=== PATIENT | male | born 1955 | race Caucasian/White ===

== ENCOUNTER 2022-02-10 22:39 | Inpatient (IN) ==
[2022-02-10] MEDS ORDERED: SODIUM CHLORIDE 0.9% 1000ML 1,000 ML IV ONE (23:06)
--- NOTE | 2022-02-10 23:10 | Emergency Department Note ---
Impression & Plan Acute hyponatremia, Bipolar 1 disorder, Lisa, Electrolyte abnormality, Abnormal finding on CT scan, Acute psychosis ED Provider Note Name: KEVON BRO Age: 66 Sex: M Arrives Via: Ambulance Informant: Patient, EMS, Nursing ED Provider: Masoud Yi MD Chief Complaint: AMS Impression: As per impressions above Medical Decision Makin-year-old gentleman with a history of psychiatric disorder who has been at the [facility] for the last 3 days due to acute psychosis arrives for evaluation after a reported episode of altered mental status and vomiting. He arrives awake alert but significantly psychotic and delusional. He appears dehydrated but on initial arrival is adamantly refusing IV fluids in fact will not even allow labs or CT of his head until he was given a glass of water which she immediately drank. This fortunately did allow us to get labs and the CT of his head. CT of the head shows an area that is likely an aneurysm however it appears similar to 2019 CT. This will likely need further work-up but I do not feel is the cause of his altered mental status today. His laboratory work-up is remarkable for significant hyponatremia along with some mild other electrolyte abnormalities. I suspect his hyponatremia is really secondary to polydipsia as he continuously asked for water to drink and is somewhat upset that we are not giving him further he did get somewhat up set and agitated that he would have to be staying in the hospital. He is agreeable to medicine help calm down and as he was given Ativan 2 mg IV with improvement in his agitation. Patient was given 1 L normal saline IV. He exhibits no strokelike symptoms and there is no evidence of intracranial hemorrhage at this time. He was discussed with the on-call hospit alist who will bring him in for further management. Patient has no respiratory distress, he has a soft nontender abdomen and he does not appear septic or otherwise requiring antibiotics for infection. Prior Medical Record and Triage/Nursing Notes reviewed by Me Additional history obtained from EMS Differentials:Infection, hypoglycemia, electrolyte abnormalities, overdose, toxicologic, cardiac sources, intracerebral event, neurologic, trauma, as well as other pathologies. Vital Signs: reviewed and remarkable for HTN, improved during stay Interventions: Ativan 2mg IV, NSS Bolus 1L IV Labs:Reviewed and remarkable for hyponatremia Imaging:X ray results are stated below per my interpretation: Chest: 1 view: No infiltrate, no effusion, normal cardiac border. CT of the head as per radiology there is 10 mm area of possible aneurysm which appears somewhat similar to 2019 imaging after discussion with radiologist. Cardiac/Tele Monitoring: Cardiac Monitoring: An Order was placed for continuous cardiac monitoring. The monitor shows a rate of 80 with a normal sinus rhythm. Consults:Dr Hector PASTOR Hospitalist Plan: Disposition:Hospitalization. Condition: Good History of Present Illness:66-year-old gentleman arrives for evaluation of altered mental status. Patient has been at the [facility] for delusional state for the last week. Patient this evening was found unresponsive lying on the floor in his emesis. Blood pressure at that time revealed he was hypotensive. As he came too he apparently was having slurred speech. EMS was called. By the time EMS arrived patient was awake alert answering questions without any further findings. He remains delusional but this is his baseline for the last week. Patient has had high blood pressures for the weigh-in. Patient does admit he has a headache. He denies any other symptoms that he has no chest pain, shortness of breath, nausea, vomiting, abdominal pain, back pain, leg pain, calf swelling, urinary/bowel symptoms, sore throat, neurologic deficits or other concerning signs or symptoms. He had no interventions prior to arrival. Patient states nothing makes better or worse. He states he always has a headache. He is requesting ibuprofen but states it needs to be Advil gel liquid caps. ROS: See above HPI for pertinent positives & negatives. A total of 10 systems reviewed and were otherwise negative. Past Medical History:See Below Past Surgical History:See Below Family History:See Below Social History:See Below Home Medications:See Below Allergies:See Below Vitals:Blood Pressure: 178/107, Pulse 80, RR 18, T 36.4C, O2 99% on RA Physical Exam: GENERAL: Patient is well appearing and in minimal distress. EYES: No scleral icterus, unremarkable pupils. ENT: Mucous membranes moist, no nasal congestion. NECK: No masses appreciated, nomeningismus, trachea is midline. RESPIRATORY: No dyspnea. Clear to auscultation and equal bilaterally. No wheeze, no rhonchi. CARDIOVASCULAR: Regular rate and rhythm.No murmurs, rubs, gallops appreciated. GASTROINTESTINAL: Abdomen soft, non-tender, no peritonitis.Bowel sounds positive.No masses appreciated. BACK: No midline tenderness, no CVA tenderness EXTREMITIES: Normal motion all extremities, no cyanosis, no edema. NEUROLOGIC: Alert and oriented, no acute motor or sensory deficits, no focal weakness, cranial nerves grossly intact. SKIN: No rash, no jaundice, no diaphoresis. PSYCH: Delusional GCS: 15 Masoud Yi MD Past Med/Surg History Medical History (Updated 02/11/22 @ 07:10 by Masoud Yi MD) Bipolar 1 disorder Family History Other No significant family history Social History Smoking Status: Unknown if ever smoked Preferred Language: Vincentian marital status: Current Living Situation: Spouse Feels Safe at Home: Yes Allergies Allergies Allergy/AdvReac Type Severity Reaction Status Date / Time diphenhydramine Allergy Unknown Unknown Verified 02/11/22 01:31 guaifenesin Allergy Unknown Unknown Verified 02/11/22 01:31 ibuprofen Allergy Unknown Unknown Verified 02/11/22 01:31 pseudoephedrine Allergy Unknown Unknown Verified 02/11/22 01:31 Home Meds Home Medications Medication Instructions Recorded Confirmed chlorthalidone 25 mg tablet 25 mg PO DAILY 12/07/18 02/11/22 metformin 500 mg tablet 500 mg PO DAILY 12/07/18 02/11/22 allopurinol 100 mg tablet 100 mg PO DAILY 02/06/22 02/11/22 acetaminophen 325 mg tablet 650 mg PO Q6 PRN Pain 02/11/22 02/11/22 atorvastatin 40 mg tablet 40 mg PO HS 02/11/22 02/11/22 levetiracetam 1,000 mg tablet 1,000 mg PO HS 02/11/22 02/11/22 levetiracetam 500 mg tablet 500 mg PO BID 02/11/22 02/11/22 lisinopril 10 mg tablet 10 mg PO DAILY 02/11/22 02/11/22 meloxicam 15 mg tablet 15 mg PO DAILY 02/11/22 02/11/22 quetiapine 300 mg tablet 300 mg PO HS 02/11/22 02/11/22 quetiapine 50 mg tablet 50 mg PO .EVERY 30 MINUTES PRN 02/11/22 02/11/22 Agitation quetiapine 50 mg tablet 50 mg PO BID 02/11/22 02/11/22 Results & Data (ED) Vital Signs Vital Signs - 24 hr 02/10/22 22:54 02/11/22 00:11 02/10/22 22:48 Temperature 36.4 C L Temperature Source Oral Pulse Rate 80 79 Pulse Rate from SpO2 Sensor 79 Respiratory Rate 18 10 L Respiratory Effort / Characteristics Non-Labored Respiratory Depth Normal Respiratory Pattern Regular Blood Pressure 178/107 H Blood Pressure Mean 130 Pulse Oximetry 99 95 98 Oxygen Delivery Method Room Air Room Air Sepsis Recent Fever Within 48 Hours No Sepsis New/Unexplained Change in Mental Status No Sepsis Action Taken by Nursing No Action Required 02/10/22 22:50 02/10/22 23:00 02/10/22 23:10 Temperature Temperature Source Pulse Rate 77 74 74 Pulse Rate from SpO2 Sensor 78 Respiratory Rate 15 19 15 Respiratory Effort / Characteristics Respiratory Depth Respiratory Pattern Blood Pressure Blood Pressure Mean Pulse Oximetry 97 Oxygen Delivery Method Sepsis Recent Fever Within 48 Hours Sepsis New/Unexplained Change in Mental Status Sepsis Action Taken by Nursing 02/11/22 00:54 02/11/22 01:15 02/11/22 01:20 Temperature Temperature Source Pulse Rate 68 67 Pulse Rate from SpO2 Sensor 71 67 71 Respiratory Rate 14 12 Respiratory Effort / Characteristics Respiratory Depth Respiratory Pattern Blood Pressure Blood Pressure Mean Pulse Oximetry 93 96 94 Oxygen Delivery Method Sepsis Recent Fever Within 48 Hours Sepsis New/Unexplained Change in Mental Status Sepsis Action Taken by Nursing Laboratory Data Result diagrams: 02/10/22 23:15 02/10/22 23:15 Lab Results 02/10/22 02/10/22 02/10/22 Range/Units 23:15 23:15 23:22 WBC 5.96 (4.8-10.8) K/ul RBC 4.46 L (4.63-6.08) M/uL Hgb 13.4 L (14.0-18.0) g/dl POC Hgb 13.6 L (14.0-18.0) g/dl Hct 37.1 L (40.1-51.0) % POC Hct 40 L (42-52) % MCV 83.2 (80.0-100.0) fL MCH 30.0 (25.0-34.0) pg MCHC 36.1 H (32.0-36.0) g/dL RDW Std Deviation 42.1 (36.4-46.3) fL RDW Coeff of Olivia 13.9 (11.5-14.5) % Plt Count 100 L (130-400) K/uL MPV 10.6 (9.4-12.4) fL Immature Gran % (Auto) 0.3 % Neut % (Auto) 68.7 % Lymph % (Auto) 19.5 % Sutter % (Auto) 9.9 % Eos % (Auto) 1.3 % Baso % (Auto) 0.3 % Neut # (Auto) 4.09 (1.4-6.5) K/uL Lymph # (Auto) 1.16 L (1.2-3.4) K/uL Sutter # (Auto) 0.59 (0.24-0.82) K/uL Eos # (Auto) 0.08 (0-0.50) K/uL Baso # (Auto) 0.02 (0-0.2) K/uL Immature Gran # (Auto) 0.02 (0.00-0.02) K/uL Platelet Estimate Decreased L (Normal) POC Sodium 123 L (135-144) mmol/L Sodium 122 L (136-145) mmol/L POC Potassium 3.1 L (3.3-5.0) mmol/L Potassium 2.8 L (3.5-5.1) mmol/L POC Chloride 86 L (101-112) mmol/L Chloride 87 L (98-107) mmol/L Carbon Dioxide 26 (21-32) mmol/L POC Total CO2 24 (24-31) mmol/L Anion Gap 9 (3-11) POC Anion Gap 18.0 (16-25) mmol/L POC BUN 16 (7-18) mg/dl BUN 17 (6-23) mg/dl Creatinine 0.79 (0.6-1.4) mg/dl POC Creatinine 0.8 (0.6-1.3) mg/dl Est Cr Clr Drug Dosing 105.6 ml/min Est GFR ( Amer) 108.5 ml/min Est GFR (Non-Af Amer) 93.6 ml/min BUN/Creatinine Ratio 21.5 H (10-20) Glucose 140 H (70-99(Fasting)) mg/dl POC Glucose (other) 147 H (70-99) mg/dl Calcium 9.1 (8.5-10.1) mg/dl POC Ioniz Calcium David 1.13 (1.12-1.32) mmol/l Magnesium 1.6 L (1.7-2.4) mg/dl Total Bilirubin 1.3 H (0.2-1.0) mg/dl Direct Bilirubin 0.3 H (0-0.2) mg/dl AST 171 H (13-39) U/L ALT 73 H (7-52) U/L Alkaline Phosphatase 89 (34-104) U/L Troponin I High Sens 8.9 (0-20) pg/ml Total Protein 8.0 (6.0-8.3) gm/dl Albumin 4.4 (3.4-5.0) gm/dl Lipase 39 (11-82) U/L SARS-CoV-2, RNA, NAAT (NEGATIVE) 02/11/22 Range/Units 00:30 WBC (4.8-10.8) K/ul RBC (4.63-6.08) M/uL Hgb (14.0-18.0) g/dl POC Hgb (14.0-18.0) g/dl Hct (40.1-51.0) % POC Hct (42-52) % MCV (80.0-100.0) fL MCH (25.0-34.0) pg MCHC (32.0-36.0) g/dL RDW Std Deviation (36.4-46.3) fL RDW Coeff of Olivia (11.5-14.5) % Plt Count (130-400) K/uL MPV (9.4-12.4) fL Immature Gran % (Auto) % Neut % (Auto) % Lymph % (Auto) % Sutter % (Auto) % Eos % (Auto) % Baso % (Auto) % Neut # (Auto) (1.4-6.5) K/uL Lymph # (Auto) (1.2-3.4) K/uL Sutter # (Auto) (0.24-0.82) K/uL Eos # (Auto) (0-0.50) K/uL Baso # (Auto) (0-0.2) K/uL Immature Gran # (Auto) (0.00-0.02) K/uL Platelet Estimate (Normal) POC Sodium (135-144) mmol/L Sodium (136-145) mmol/L POC Potassium (3.3-5.0) mmol/L Potassium (3.5-5.1) mmol/L POC Chloride (101-112) mmol/L Chloride (98-107) mmol/L Carbon Dioxide (21-32) mmol/L POC Total CO2 (24-31) mmol/L Anion Gap (3-11) POC Anion Gap (16-25) mmol/L POC BUN (7-18) mg/dl BUN (6-23) mg/dl Creatinine (0.6-1.4) mg/dl POC Creatinine (0.6-1.3) mg/dl Est Cr Clr Drug Dosing ml/min Est GFR ( Amer) ml/min Est GFR (Non-Af Amer) ml/min BUN/Creatinine Ratio (10-20) Glucose (70-99(Fasting)) mg/dl POC Glucose (other) (70-99) mg/dl Calcium (8.5-10.1) mg/dl POC Ioniz Calcium David (1.12-1.32) mmol/l Magnesium (1.7-2.4) mg/dl Total Bilirubin (0.2-1.0) mg/dl Direct Bilirubin (0-0.2) mg/dl AST (13-39) U/L ALT (7-52) U/L Alkaline Phosphatase (34-104) U/L Troponin I High Sens (0-20) pg/ml Total Protein (6.0-8.3) gm/dl Albumin (3.4-5.0) gm/dl Lipase (11-82) U/L SARS-CoV-2, RNA, NAAT NEGATIVE (NEGATIVE) Administered Medications Magnesium Sulfate/Dextrose (Magnesium Sulfate / D5w) 1 gm in 100 mls @ 50 mls/hr IV Q2H YOGI Stop: 02/11/22 10:56 Last Admin: 02/11/22 05:53 Dose: 50 mls/hr Documented By: RES Discontinued Medications Sodium Chloride (Nss 1000ml) 1,000 mls @ 999 mls/hr IV .Q1H1M ONE Stop: 02/11/22 00:06 Last Infusion: 02/11/22 02:32 Dose: 0 mls/hr Documented By: Admin: 02/11/22 00:48 Dose: 999 mls/hr Documented By: BRISA Lorazepam 1 mg/ Syringe 1 mls @ 2 mls/min IV NOW ONE Stop: 02/11/22 05:31 Last Admin: 02/11/22 05:55 Dose: 2 mls/min Documented By: KRISSY Lorazepam (Lorazepam 1 Mg/1 Ml Syr) 2 mg IV NOW STA; Protocol Stop: 02/11/22 00:36 Last Admin: 02/11/22 00:48 Dose: 2 mg Documented By: BRISA Imaging Data Radiologist's Impression: Chest X-Ray 02/10/22 23:06 SINGLE VIEW CHEST CLINICAL HISTORY: Vomit FINDINGS: An AP, portable, upright chest radiograph is obtained. No prior studies are available for comparison at the time of dictation. The cardiomediastinal silhouette is unremarkable. The lungs and pleural spaces are clear. No pneumothorax is seen. The bony thorax is grossly intact. Calcific tendinopathy is noted in the left shoulder. IMPRESSION: No active disease in the chest. ACT 112: Negative or not required by law. Electronically signed by: Judah Abebe M.D. 02/10/2022 11:[address] 02/10/22 23:06 CT SCAN OF THE BRAIN WITHOUT IV CONTRAST CLINICAL HISTORY: Change in mental status. COMPARISON STUDY: CT of the brain dated 12/07/2018. TECHNIQUE: Unenhanced axial CT scan of the brain is performed from the vertex to the skull base. A dose lowering technique was utilized adhering to the principles of ALARA. CT DOSE: 614.27 mGy.cm FINDINGS: Brain parenchyma: There is age-related involutional change noting mild subcortical and periventricular microangiopathic disease. There is no hemorrhage, mass effect, or evidence of acute territorial ischemia by CT criteria. Faint mineralization is noted in the basal ganglia. Anderson-white matter differentiation is preserved. No extra-axial fluid collection is seen. There is a 1.0 cm suprasellar nodule seen on axial image #10 (or image #37 of the high resolution reformats) adjacent to the basilar tip. Ventricles, sulci, cisterns: Prominent secondary to involutional change. Intracranial vasculature: There is minimal atherosclerotic calcification of the cavernous carotid arteries.. Calvarium: Unremarkable. Sinuses and mastoids: The visualized paranasal sinuses are clear. The mastoid air cells are well pneumatized. Orbits: The bony orbits are grossly intact. IMPRESSION: 1. There is no hemorrhage, mass effect, or evidence of acute territorial ischemia by CT criteria. 2. There is a 10 mm ovoid nodule in the suprasellar region located adjacent to the tip of the basilar. This may represent aneurysm, and correlation with a CT angiogram of the brain is recommended for further assessment. ACT 112: Negative or not required by law. Electronically signed by: Judah Abebe M.D. 02/11/2022 12:22 AM Discharge Plan Visit Data Chief Complaint: Altered Mental Status Stated Complaint: altered mental status ED Provider: Masoud Yi Discharge Problem: Acute hyponatremia, Bipolar 1 disorder, Lisa, Electrolyte abnormality, Abnormal finding on CT scan, Acute psychosis Patient Disposition: Admitted As Inpatient Discharge Instructions Interventions: ED Discharge Assessment Last Done: 02/11/22 04:45
--- NOTE | 2022-02-10 23:18 | XRay Report ---
SINGLE VIEW CHEST CLINICAL HISTORY: Vomit FINDINGS: An AP, portable, upright chest radiograph is obtained. No prior studies are available for c omparison at the time of dictation. The cardiomediastinal silhouette is unremarkable. The lungs and p leural spaces are clear. No pneumothorax is seen. The bony thorax is grossly intact. Calcific tendino tania is noted in the left shoulder. IMPRESSION: No active disease in the chest. ACT 112: Negative or not required by law. Electronically signed by: Judah Abebe M.D. 02/10/2022 11:16 PM
[2022-02-10 23:41] LABS: iSTAT Creatinine 0.8 mg/dl (0.6-1.3); iSTAT Hemoglobin 13.6 g/dl (14.0-18.0); iSTAT Ionized Calcium 1.13 mmol/l (1.12-1.32); iSTAT Potassium 3.1 mmol/L (3.3-5.0)
[2022-02-11 00:08] LABS: Troponin I High Sensitivity 8.9 pg/ml (0-20)
--- NOTE | 2022-02-11 00:23 | CT Scan Report ---
CT SCAN OF THE BRAIN WITHOUT IV CONTRAST CLINICAL HISTORY: Change in mental status. COMPARISON STUDY: CT of the brain dated 12/07/2018. TECHNIQUE: Unenhanced axial CT scan of the brain is performed from the vertex to the skull base. A do se lowering technique was utilized adhering to the principles of ALARA. CT DOSE: 614.27 mGy.cm FINDINGS: Brain parenchyma: There is age-related involutional change noting mild subcortical and periventricula r microangiopathic disease. There is no hemorrhage, mass effect, or evidence of acute territorial isc hemia by CT criteria. Faint mineralization is noted in the basal ganglia. Anderson-white matter different iation is preserved. No extra-axial fluid collection is seen. There is a 1.0 cm suprasellar nodule se en on axial image #10 (or image #37 of the high resolution reformats) adjacent to the basilar tip. Ventricles, sulci, cisterns: Prominent secondary to involutional change. Intracranial vasculature: There is minimal atherosclerotic calcification of the cavernous carotid art eries.. Calvarium: Unremarkable. Sinuses and mastoids: The visualized paranasal sinuses are clear. The mastoid air cells are well pneu matized. Orbits: The bony orbits are grossly intact. IMPRESSION: 1. There is no hemorrhage, mass effect, or evidence of acute territorial ischemia by CT criteria. 2. There is a 10 mm ovoid nodule in the suprasellar region located adjacent to the tip of the basilar . This may represent aneurysm, and correlation with a CT angiogram of the brain is recommended for fu rther assessment. ACT 112: Negative or not required by law. Electronically signed by: Judah Abebe M.D. 02/11/2022 12:22 AM
[2022-02-11 00:26] LABS: Albumin Level 4.4 gm/dl (3.4-5.0); BUN Creatinine Ratio 21.5 (10-20); Bilirubin Direct 0.3 mg/dl (0-0.2); Bilirubin,Total 1.3 mg/dl (0.2-1.0); Calcium 9.1 mg/dl (8.5-10.1); Creatinine Clr Calc Pharmacy 105.6 ml/min; Est GFR (African American) 108.5 ml/min; Est GFR (Non-African American) 93.6 ml/min; Magnesium 1.6 mg/dl (1.7-2.4); Potassium 2.8 mmol/L (3.5-5.1)
[2022-02-11 00:32] LABS: Basophils # (auto) 0.02 K/uL (0-0.2); Basophils % (auto) 0.3 %; Eosinophils # (auto) 0.08 K/uL (0-0.50); Eosinophils % (auto) 1.3 %; Hematocrit (blood only) 37.1 % (40.1-51.0); Hemoglobin 13.4 g/dl (14.0-18.0); Immature Granulocytes # (auto) 0.02 K/uL (0.00-0.02); Immature Granulocytes % (auto) 0.3 %; Lymphocytes # (auto) 1.16 K/uL (1.2-3.4); Lymphocytes % (auto) 19.5 %; Mean Corpuscular Hgb Conc 36.1 g/dL (32.0-36.0); Mean Corpuscular Volume 83.2 fL (80.0-100.0); Mean Platelet Volume 10.6 fL (9.4-12.4); Monocytes # (auto) 0.59 K/uL (0.24-0.82); Monocytes % (auto) 9.9 %; Neutrophils # (auto) 4.09 K/uL (1.4-6.5); Neutrophils % (auto) 68.7 %; Platelet Count 100 K/uL (130-400); Platelet Estimate Decreased (Normal); RDW Coefficient of Variation 13.9 % (11.5-14.5); RDW Standard Deviation 42.1 fL (36.4-46.3); Red Blood Count 4.46 M/uL (4.63-6.08); White Blood Count 5.96 K/ul (4.8-10.8)
[2022-02-11] MEDS ORDERED: LORazepam 2 MG/1 ML VIAL IV STA (00:35)
--- NOTE | 2022-02-11 03:28 | History & Physical Report ---
Date of Service February 11, 2022 Assessment & Plan (1) Bipolar 1 disorder: Plan: Question if patient's presentation is britta? 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 Was present on prior imaging from 2019. -Consider CTA of the brain for further assessment prior to discharge History of Present Illness Chief Complaint: confusion Primary Care Provider: Dionna Le Emery Perez is a 66yo male with history of Bipolar presenting from [facility] with increased confusion. Patient has been at [facility] for several days for delusions. Tonight he was reportedly found in his room on the floor with vomit. He was unresponsive and hypotensive. When he woke up his speech was slightly slurred. EMS was called and did not note these findings. Patient refusing exam and workup here in ER until he got a glass of water. He answers only to the name "Pawan" and "Dean Jones". Slightly agitated in the ER - was given Ativan prior to my assessment. Resting comfortably. Patient does not provide additional history at this time due to sleepiness. Allergies Allergy/AdvReac Type Severity Reaction Status Date / Time diphenhydramine Allergy Unknown Unknown Verified 02/11/22 01:31 guaifenesin Allergy Unknown Unknown Verified 02/11/22 01:31 ibuprofen Allergy Unknown Unknown Verified 02/11/22 01:31 pseudoephedrine Allergy Unknown Unknown Verified 02/11/22 01:31 Home Medications Medication Instructions Recorded Confirmed Type chlorthalidone 25 mg tablet 25 mg PO DAILY 12/07/18 02/11/22 History metformin 500 mg tablet 500 mg PO DAILY 12/07/18 02/11/22 History allopurinol 100 mg tablet 100 mg PO DAILY 02/06/22 02/11/22 History acetaminophen 325 mg tablet 650 mg PO Q6 PRN Pain 02/11/22 02/11/22 History atorvastatin 40 mg tablet 40 mg PO HS 02/11/22 02/11/22 History levetiracetam 1,000 mg tablet 1,000 mg PO HS 02/11/22 02/11/22 History levetiracetam 500 mg tablet 500 mg PO BID 02/11/22 02/11/22 History lisinopril 10 mg tablet 10 mg PO DAILY 02/11/22 02/11/22 History meloxicam 15 mg tablet 15 mg PO DAILY 02/11/22 02/11/22 History quetiapine 300 mg tablet 300 mg PO HS 02/11/22 02/11/22 History quetiapine 50 mg tablet 50 mg PO .EVERY 30 MINUTES PRN 02/11/22 02/11/22 History Agitation quetiapine 50 mg tablet 50 mg PO BID 02/11/22 02/11/22 History Past Med/Surg History Medical History (Updated 02/11/22 @ 03:24 by Sofía Young DO) Bipolar 1 disorder Family History Other No significant family history Social History Smoking Status: Unknown if ever smoked Preferred Language: [place]an marital status: Current Living Situation: Spouse Feels Safe at Home: Yes Review of Systems Review of Systems: All systems reviewed & are unremarkable except as noted in HPI & below Physical Exam Physical Exam: General: patient resting comfortably, NAD, non-toxic in a ppearance Skin: warm, dry, intact, no rashes or lesions HEENT: NC/AT, PERRL, EOMI, anicteric sclera, conjunctiva without injection, external ear normal to inspection and nontender, nares patent, moist mucus membranes, dentition intact, no oropharyngeal lesions, neck supple, trachea midline, no LAD, no thyromegaly, no JVD Heart: +S1/S2, regular, no m/r/g Lungs: equal air entry bilaterally, no rales/rhonchi/wheezes Abd: +BS, soft, NT/ND, no masses/organomegaly/ascites Ext: warm, 2+ pulses in UE/LE bilaterally, no clubbing/cyanosis or edema Results & Data Results & Data ([facility]) Vital Signs (Past 12 Hours) Vital Signs Temp Pulse Pulse Resp BP BP Pulse Ox 02/11/22 01:38 66 14 138/84 94 02/11/22 00:11 95 02/10/22 22:54 36.4 C L 80 18 178/107 H 99 O2 Del Method 02/11/22 01:38 Room Air 02/11/22 00:11 Room Air 02/10/22 22:54 Room Air Laboratory Results Laboratory Results WBC 5.96 K/ul (4.8-10.8) 02/10/22 23:15 RBC 4.46 M/uL (4.63-6.08) L 02/10/22 23:15 Hgb 13.4 g/dl (14.0-18.0) L 02/10/22 23:15 POC Hgb 13.6 g/dl (14.0-18.0) L 02/10/22 23:22 Hct 37.1 % (40.1-51.0) L 02/10/22 23:15 POC Hct 40 % (42-52) L 02/10/22 23:22 MCV 83.2 fL (80.0-100.0) 02/10/22 23:15 MCH 30.0 pg (25.0-34.0) 02/10/22 23:15 MCHC 36.1 g/dL (32.0-36.0) H 02/10/22 23:15 RDW Std Deviation 42.1 fL (36.4-46.3) 02/10/22 23:15 RDW Coeff of Olivia 13.9 % (11.5-14.5) 02/10/22 23:15 Plt Count 100 K/uL (130-400) L 02/10/22 23:15 MPV 10.6 fL (9.4-12.4) 02/10/22 23:15 Immature Gran % (Auto) 0.3 % 02/10/22 23:15 Neut % (Auto) 68.7 % 02/10/22 23:15 Lymph % (Auto) 19.5 % 02/10/22 23:15 Atkinson % (Auto) 9.9 % 02/10/22 23:15 Eos % (Auto) 1.3 % 02/10/22 23:15 Baso % (Auto) 0.3 % 02/10/22 23:15 Neut # (Auto) 4.09 K/uL (1.4-6.5) 02/10/22 23:15 Lymph # (Auto) 1.16 K/uL (1.2-3.4) L 02/10/22 23:15 Atkinson # (Auto) 0.59 K/uL (0.24-0.82) 02/10/22 23:15 Eos # (Auto) 0.08 K/uL (0-0.50) 02/10/22 23:15 Baso # (Auto) 0.02 K/uL (0-0.2) 02/10/22 23:15 Immature Gran # (Auto) 0.02 K/uL (0.00-0.02) 02/10/22 23:15 Platelet Estimate Decreased (Normal) L 02/10/22 23:15 POC Sodium 123 mmol/L (135-144) L 02/10/22 23:22 Sodium 122 mmol/L (136-145) L 02/10/22 23:15 POC Potassium 3.1 mmol/L (3.3-5.0) L 02/10/22 23:22 Potassium 2.8 mmol/L (3.5-5.1) L 02/10/22 23:15 POC Chloride 86 mmol/L (101-112) L 02/10/22 23:22 Chloride 87 mmol/L (98-107) L 02/10/22 23:15 Carbon Dioxide 26 mmol/L (21-32) 02/10/22 23:15 POC Total CO2 24 mmol/L (24-31) 02/10/22 23:22 Anion Gap 9 (3-11) 02/10/22 23:15 POC Anion Gap 18.0 mmol/L (16-25) 02/10/22 23:22 POC BUN 16 mg/dl (7-18) 02/10/22 23:22 BUN 17 mg/dl (6-23) 02/10/22 23:15 Creatinine 0.79 mg/dl (0.6-1.4) 02/10/22 23:15 POC Creatinine 0.8 mg/dl (0.6-1.3) 02/10/22 23:22 Est Cr Clr Drug Dosing 105.6 ml/min 02/10/22 23:15 Est GFR ( Amer) 108.5 ml/min 02/10/22 23:15 Est GFR (Non-Af Amer) 93.6 ml/min 02/10/22 23:15 BUN/Creatinine Ratio 21.5 (10-20) H 02/10/22 23:15 Glucose 140 mg/dl (70-99(Fasting)) H 02/10/22 23:15 POC Glucose (other) 147 mg/dl (70-99) H 02/10/22 23:22 Calcium 9.1 mg/dl (8.5-10.1) 02/10/22 23:15 POC Ioniz Calcium David 1.13 mmol/l (1.12-1.32) 02/10/22 23:22 Magnesium 1.6 mg/dl (1.7-2.4) L 02/10/22 23:15 Total Bilirubin 1.3 mg/dl (0.2-1.0) H 02/10/22 23:15 Direct Bilirubin 0.3 mg/dl (0-0.2) H 02/10/22 23:15 AST 171 U/L (13-39) H 02/10/22 23:15 ALT 73 U/L (7-52) H 02/10/22 23:15 Alkaline Phosphatase 89 U/L (34-104) 02/10/22 23:15 Troponin I High Sens 8.9 pg/ml (0-20) 02/10/22 23:15 Total Protein 8.0 gm/dl (6.0-8.3) 02/10/22 23:15 Albumin 4.4 gm/dl (3.4-5.0) 02/10/22 23:15 Lipase 39 U/L (11-82) 02/10/22 23:15 SARS-CoV-2, RNA, NAAT NEGATIVE (NEGATIVE) 02/11/22 00:30 Impressions Chest X-Ray 02/10/22 23:06 SINGLE VIEW CHEST CLINICAL HISTORY: Vomit FINDINGS: An AP, portable, upright chest radiograph is obtained. No prior s tudies are available for comparison at the time of dictation. The cardiomediastinal silhouette is unremarkable. The lungs and pleural spaces are clear. No pneumothorax is seen. The bony thorax is grossly intact. Calcific tendinopathy is noted in the left shoulder. IMPRESSION: No active disease in the chest. ACT 112: Negative or not required by law. Electronically signed by: Judah Abebe M.D. 02/10/2022 11:[address] 02/10/22 23:06 CT SCAN OF THE BRAIN WITHOUT IV CONTRAST CLINICAL HISTORY: Change in mental status. COMPARISON STUDY: CT of the brain dated 12/07/2018. TECHNIQUE: Unenhanced axial CT scan of the brain is performed from the vertex to the skull base. A dose lowering technique was utilized adhering to the principles of ALARA. CT DOSE: 614.27 mGy.cm FINDINGS: Brain parenchyma: There is age-related involutional change noting mild subcortical and periventricular microangiopathic disease. There is no hemorrhage, mass effect, or evidence of acute territorial ischemia by CT criteria. Faint mineralization is noted in the basal ganglia. Anderson-white matter differentiation is preserved. No extra-axial fluid collection is seen. There is a 1.0 cm suprasellar nodule seen on axial image #10 (or image #37 of the high resolution reformats) adjacent to the basilar tip. Ventricles, sulci, cisterns: Prominent secondary to involutional change. Intracranial vasculature: There is minimal atherosclerotic calcification of the cavernous carotid arteries.. Calvarium: Unremarkable. Sinuses and mastoids: The visualized paranasal sinuses are clear. The mastoid air cells are well pneumatized. Orbits: The bony orbits are grossly intact. IMPRESSION: 1. There is no hemorrhage, mass effect, or evidence of acute territorial ischemia by CT criteria. 2. There is a 10 mm ovoid nodule in the suprasellar region located adjacent to the tip of the basilar. This may represent aneurysm, and correlation with a CT angiogram of the brain is recommended for further assessment. ACT 112: Negative or not required by law. Electronically signed by: Judah Abebe M.D. 02/11/2022 12:22 AM PG Care Time/CCT Total # of Minutes Spent Total Time Spent with Patient: Total time spent is greater than 50% in coordination of care (as documented) at patient's floor/unit and/or counseling patient: Coding Level of Care Code 23712 Initial Inpt Care Lvl 2 Diagnoses Bipolar 1 disorder F31.9 Electrolyte abnormality E87.[address] scan R93.89
[2022-02-11] MEDS ORDERED: LORazepam 1 MG in SYRINGE 0 ML IV ONE (05:30)
[2022-02-11] MEDS: MAGNESIUM SULFATE / D5W 1 GM/100 ML BAG IV SCH ×3 (05:53→09:42)
[2022-02-11] MEDS: lisinopril 10 MG TAB PO SCH (07:49)
[2022-02-11] MEDS: levETIRAcetam 500 MG TAB PO SCH ×2 (07:50→12:47)
[2022-02-11] MEDS: allopurinoL 100 MG TAB PO SCH (07:50)
[2022-02-11] MEDS: ACETAMINOPHEN 325 MG TAB PO PRN ×2 (07:51→16:41)
[2022-02-11] MEDS: ONDANSETRON INJ 2 MG/ML 2 ML VIAL IV PRN ×2 (08:51→21:13)
--- NOTE | 2022-02-11 08:52 | Hospitalist Progress Note ---
Date of Service February 11, 2022 Assessment & Plan (1) Metabolic encephalopathy: Plan: Patient presented to ER from the [facility] after being found down and with emesis and altered mental status, with electrolyte derangements Given ativan on admit Na 122 (133 on d/c to [facility] 02/06), K 2.8, Mag 1.6 No EKG on admit, decision to move to telemetry for closer monitoring this morning, donavan given reports emesis (KUB checked, no obstruction). Has been NSR w/ ectopy (has tremor, baseline and chronic per patient and reported as heriditary) CT head negative on admit but did show 10 mm ovoid nodule in the suprasellar region located adjacent to the tip of the basilar. This may represent aneurysm, and correlation with a CT angiogram of the brain is recommended for further assessment. CTA for further eval : IMPRESSION: 1. No acute intracranial hemorrhage, evidence of acute territorial infarction, or other acute intracranial disease process. 2. No occlusion, hemodynamically significant stenosis, aneurysm, dissection, or arteriovenous malformation in the major intracranial arteries. In particular, no basilar tip aneurysm is seen, the radiodensity in the anterior shiloh is not vascular in character. Checked additional labs: Ammonia 35 B12 1133 B1 pending -- will start empic thiamine TSH wnl/Ft4/t3 wnl (had been elevated to 5.074 02/06, ?acute from recent lithium use earlier in the month?) Keppra ordered -- however, appears this has been recently started at [facility] with klonopin in place of temazepam Did give dose IV initially given emesis this morning. KUB w/o obstruction. DISCONTINUE further keppra given can cause agitation and acute hyponatremia Of note, discussed with his on phone this evening who was unaware patient was not at the [facility] until this morning, and states patient had been hospitalized in 2019 after stressful trip to [facility]/ episode of Britta and was transferred to [facility] inpatient psych for treatment She states he has had issues with this when they were younger ( 43 years) but had not had an issue prior to that for about 10 years and was actually quite stable on regimen as follows: * QAM : Topamax 100mg, Gabapentin 500mg, atorvastatin 30mg, chlorthalidone 25mg, metformin 500mg (pre-DM), meloxicam 15mg (for trigger finger) * Noon: MVI, Vitamin D 3, B complex * 5pm: gabapentin 600mg * HS: Topamax 100mg, gabapentin 600mg, depakote 500mg, seroquel 200mg, mag oxide 500mg, melatonin 15-18mg, and chloropromazine 20-25mg as needed for emergency if not sleeping She notes issues w/ insomnia and had not been sleeping/decline starting over the summer and they were working with MD at [facility] to help since August She notes that they started him on ambien, but that they then changed to Temazepam 15mg which was not really helpful per her account. They then decided to add trazodone for sleep/anxiety/mood In September/October 2021 was seen by heme/onc (denies ca diagnosis, but mentions something having to do with his liver but not entirely sure) and was started on allopurinol 100mg daily along with biotin as he was having issues with his nails and biting them. PCP is Dr Morgan at [facility] About 2 weeks ago, they were going to start Moraine and taper him off the depakote but decided to start the lithium and continue that and depakote. Had been sleeping 1-2 hours at night, wetting the bed. ?DI from the lithium She did note she returned a 400$ saw the past month, likely purchased during period of britta as well but states he really has been not quite right for a while She notes that prior Saturday he did appear more like himself but then declined and ultimately was getting very nasty with her verbally before going to the [facility] She also mentions that she herself is on ativan prn anxiety related to her husbands condition and that she has mentioned it to multiple providers but that they did not think that was warranted Discussed with Na level could be multifactorial/increased free wate r/medications w/ psych meds/chlorthalidone use Consultation with Nephrology - urine osm 141, clinical hx polydipsia complicated by chlorthalidone use. Stopped IVF, continue fluid restriction, should improve by itself with such per discussion with Dr Bernal - electrolyte replacement -- K resolved on repeat, mag as well -Repeat Na this afternoon 124, mentating. K 4.2, Mag 2.1. TSH wnl Seizure precautions in place given hyponatremia -- per patient, confirmed with , no known seizure activity Continued inpatient stay, 1:1 for safety Psych consulted -- appreciate recs/assistance Ativan available prn, melatonin added for sleep tonight. Consider adding trazodone as started over summer but will do less for now to prevent further clouding of clinical picture Monitor repeat labs (2) Acute psychosis: Plan: as above, multifactorial (3) Hyponatremia: Plan: 122 on admit, given IVF in ER, no repeat ordered -- asked to draw this morning, lower at 121 No evidence for seizure, denies personal history of such but placed on seizure precautions TSH wnl on repeat -- see above Urine Na 42, urine osm 141, serum osm 259 Nephrology was consulted as possible need for 3% nacl, however decision to continue to hold chlorthalidone, fluid restrict, should improve on its own Repeat labs this afternoon --> Na 124 Appreciate continued assistance w/ nephrology Monitor (4) Insomnia: Plan: chronic issue, likely causing acute britta/psychosis reports sleeping 1-2 hours at night at a time Recently started temazepam outpatient but without much benefit, also had added trazodone which hasn't helped much either. melatonin HS had been tried in past as well inquiring about ativan -- is available prn for any agitation/psychosis for time being (5) Bipolar 1 disorder: Plan: hx of such -- see above regarding history from this evening (6) Electrolyte abnormality: Plan: Na 122, multifactorial as above--> fluid restriction, holding chlorthalidone, Na 124 on repeat K 2.8 - 60meq ordered for this morning, did have some emesis -- ordered K Riders -- repeat K 4.2 this afternoon. 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 Was present on prior imaging from 2019. CTA head w/o acute finding (8) H/O: HTN (hypertension): Plan: Per on chlorthiadone for years In system, did have slightly low Na back in 2019, probably not best choice for HTN for this patient given risk for hyponatremia to begin with along with other electrolyte abnormalities BP stable currently 135/76 Monitor (9) HLD (hyperlipidemia): Plan: On atorvastain 40mg daily per (10) Pre-diabetes: Plan: per on 500mg metformin daily given polydipsia, however thirst likely from low Na, will check A1c w/ AM labs (11) Polydipsia: Plan: multifactorial, plan as above (12) Elevated LFTs: Plan: elevated on admit, higher than prior ?medication related No abdominal pain Did have mention probable hepatic cirrhosis with hepatosplenomegaly on CTAP from 2019 Ammonia wnl Given such, appreciate psych input regarding medications Admission and Anticipated Discharge Date Admission Date: February 11, 2022 Supervising Physician Co-Signing Physician Notes Attending Attestation - Chart reviewed, care plan d/w CLAUDIA Power. I agree w/ the larson components of her documentation. Bryant Thomas MD Subjective BRIDGE NOTE: Admitted after midnight Eval this afternoon, goes by Pawan Dutta. Knows year January, thought it was 02/08, but discussed 02/11. Discussed [facility]- he endorses he does follow Ms Albarran. He does note has gotten new medications earlier this month there, unsure names but his does. He did give me permission to contact her later to confirm medications. He does endorse medical provider at [facility] did "thoroughly and completely" go over new medications and reasoning, but not sure what those medications were. Did ask if he takes something for sleep, he says yes. When asked if he got that at the [facility], he said he did not. When asked if he had gotten any sleep at the [facility] he states that he did not. Discussed consultation with psych. Appears patient new on Keppra/not given temazepam and given 1mg Klonopin at [facility]. Psych on board with discontinuing further Keppra and utilize ativan as needed. Contacted about meds/changes-- see plan below, did spent additional 40minutes on the phone with her this evening reviewing medications/history/changes and patient's behavior. He had been hospitalized in 2019 but not issue w/ britta for 10 years prior, believes hospitalized in 2009 here at [facility]. Had been stable on a regimen for a while, recently w/ issues starting this summer/not sleeping. She returned a 400$ saw the past month/etc. Not sleeping. Review of Systems Review of Systems: All systems reviewed & are unremarkable except as noted in HPI & below Physical Exam Physical Exam: General: WD/WN male sitting up in bed, 1:1 at bedside, goes by Lakesha Jones or Pawan. Knows he was at the [facility], year 2021, month of the lord January, thought date was February 08 though, NAD but wanting a case of gatorade HEENT: head normocephalic, atraumatic, mmm, trachea midline Resp: CTAB, no w/c/r, on room air CV: RRR, no m/r/g, does have some trace LE edema, no significant pitting, no calf edema, pulses palpable GI: +BS, soft/NT : no castillo MSK/Neuro: no focal deficit, no slurred speech/facial droop, resting tremor (reported chronic) Psych: AO to person/place/month but not date, tangential speech at times, pressured when requesting/demanding beverage but not aggressive, wanting to know when he can go back to the [facility] Results & Data Results & Data ([facility]) Vital Signs (Past 12 Hours) Vital Signs Temp Pulse Pulse Pulse Resp BP BP 02/11/22 04:40 02/11/22 04:40 36.3 C L 72 18 183/96 H 02/11/22 04:40 02/11/22 04:40 36.3 C L 72 18 183/96 H 02/11/22 04:45 78 18 135/76 02/11/22 03:20 02/11/22 03:10 02/11/22 03:00 02/11/22 02:50 02/11/22 02:40 02/11/22 02:30 66 12 02/11/22 02:20 76 17 02/11/22 02:10 69 13 02/11/22 02:00 65 12 02/11/22 01:50 66 15 02/11/22 01:40 68 17 02/11/22 01:38 138/84 02/11/22 01:38 68 13 02/11/22 01:30 66 14 02/11/22 01:20 67 12 02/11/22 01:15 68 14 02/11/22 00:54 02/10/22 23:10 74 15 02/10/22 23:00 74 19 02/10/22 22:50 77 15 02/10/22 22:48 79 10 L 02/11/22 01:38 66 14 138/84 02/11/22 00:11 02/10/22 22:54 36.4 C L 80 18 178/107 H Pulse Ox O2 Del Method 02/11/22 04:40 Room Air 02/11/22 04:40 98 Room Air 02/11/22 04:40 Room Air 02/11/22 04:40 98 Room Air 02/11/22 04:45 96 Room Air 02/11/22 03:20 96 02/11/22 03:10 97 02/11/22 03:00 96 02/11/22 02:50 96 02/11/22 02:40 96 02/11/22 02:30 95 02/11/22 02:20 02/11/22 02:10 02/11/22 02:00 96 02/11/22 01:50 95 02/11/22 01:40 96 02/11/22 01:38 02/11/22 01:38 96 02/11/22 01:30 95 02/11/22 01:20 94 02/11/22 01:15 96 02/11/22 00:54 93 02/10/22 23:10 02/10/22 23:00 02/10/22 22:50 97 02/10/22 22:48 98 02/11/22 01:38 94 Room Air 02/11/22 00:11 95 Room Air 02/10/22 22:54 99 Room Air Laboratory Results 02/11/22 02/11/22 02/11/22 Range/Units 16:24 11:12 11:12 WBC (4.8-10.8) K/ul RBC (4.63-6.08) M/uL Hgb (14.0-18.0) g/dl POC Hgb (14.0-18.0) g/dl Hct (40.1-51.0) % POC Hct (42-52) % MCV (80.0-100.0) fL MCH (25.0-34.0) pg MCHC (32.0-36.0) g/dL RDW Std Deviation (36.4-46.3) fL RDW Coeff of Olivia (11.5-14.5) % Plt Count (130-400) K/uL MPV (9.4-12.4) fL Immature Gran % (Auto) % Neut % (Auto) % Lymph % (Auto) % Ramsey % (Auto) % Eos % (Auto) % Baso % (Auto) % Neut # (Auto) (1.4-6.5) K/uL Lymph # (Auto) (1.2-3.4) K/uL Ramsey # (Auto) (0.24-0.82) K/uL Eos # (Auto) (0-0.50) K/uL Baso # (Auto) (0-0.2) K/uL Immature Gran # (Auto) (0.00-0.02) K/uL Platelet Estimate (Normal) POC Sodium (135-144) mmol/L Sodium 124 L (136-145) mmol/L POC Potassium (3.3-5.0) mmol/L Potassium 4.2 D (3.5-5.1) mmol/L POC Chloride (101-112) mmol/L Chloride 93 L (98-107) mmol/L Carbon Dioxide 24 (21-32) mmol/L POC Total CO2 (24-31) mmol/L Anion Gap 7 (3-11) POC Anion Gap (16-25) mmol/L POC BUN (7-18) mg/dl BUN 11 (6-23) mg/dl Creatinine 0.72 (0.6-1.4) mg/dl POC Creatinine (0.6-1.3) mg/dl Est Cr Clr Drug Dosing 115.9 ml/min Est GFR ( Amer) 112.7 ml/min Est GFR (Non-Af Amer) 97.2 ml/min BUN/Creatinine Ratio 15.3 (10-20) Glucose 150 H (70-99(Fasting)) mg/dl POC Glucose (other) (70-99) mg/dl Osmolality (280-300) mOsm/kg Calcium 9.2 (8.5-10.1) mg/dl POC Ioniz Calcium David (1.12-1.32) mmol/l Phosphorus 2.6 (2.5-4.9) mg/dl Magnesium (1.7-2.4) mg/dl Total Bilirubin (0.2-1.0) mg/dl Direct Bilirubin (0-0.2) mg/dl AST (13-39) U/L ALT (7-52) U/L Alkaline Phosphatase (34-104) U/L Ammonia (18-72) umol/L Troponin I High Sens (0-20) pg/ml Total Protein (6.0-8.3) gm/dl Albumin 4.3 (3.4-5.0) gm/dl Globulin (2.5-4.0) gm/dl Albumin/Globulin Ratio (0.9-2) Lipase (11-82) U/L Vitamin B1 Vitamin B12 (180-914) pg/ml TSH (0.300-4.500) uIu/ml Thyroxine (T4) (6.09-12.23) mcg/dl Free T3 (2.3-4.2) pg/ml Urine Color Yellow Urine Appearance Clear (Clear) Urine pH 8.0 H (4.5-7.5) Ur Specific [place] 1.004 (1.000-1.030) Urine Protein Negative (Negative) Urine Glucose (UA) Negative (Negative) Urine Ketones Negative (Negative) Urine Blood Negative (Negative) Urine Nitrite Negative (Negative) Urine Bilirubin Negative (Negative) Urine Urobilinogen Negative (Negative) Ur Leukocyte Esterase Negative (Negative) Urine Osmolality 141 L (500-800) mOsm/kg Ur Random Sodium mmol/L Nasal Screen MRSA (PCR) (Negative) SARS-CoV-2, RNA, NAAT (NEGATIVE) 02/11/22 02/11/22 02/11/22 Range/Units 11:12 11:01 10:04 WBC (4.8-10.8) K/ul RBC (4.63-6.08) M/uL Hgb (14.0-18.0) g/dl POC Hgb (14.0-18.0) g/dl Hct (40.1-51.0) % POC Hct (42-52) % MCV (80.0-100.0) fL MCH (25.0-34.0) pg MCHC (32.0-36.0) g/dL RDW Std Deviation (36.4-46.3) fL RDW Coeff of Olivia (11.5-14.5) % Plt Count (130-400) K/uL MPV (9.4-12.4) fL Immature Gran % (Auto) % Neut % (Auto) % Lymph % (Auto) % Ramsey % (Auto) % Eos % (Auto) % Baso % (Auto) % Neut # (Auto) (1.4-6.5) K/uL Lymph # (Auto) (1.2-3.4) K/uL Ramsey # (Auto) (0.24-0.82) K/uL Eos # (Auto) (0-0.50) K/uL Baso # (Auto) (0-0.2) K/uL Immature Gran # (Auto) (0.00-0.02) K/uL Platelet Estimate (Normal) POC Sodium (135-144) mmol/L Sodium (136-145) mmol/L POC Potassium (3.3-5.0) mmol/L Potassium (3.5-5.1) mmol/L POC Chloride (101-112) mmol/L Chloride (98-107) mmol/L Carbon Dioxide (21-32) mmol/L POC Total CO2 (24-31) mmol/L Anion Gap (3-11) POC Anion Gap (16-25) mmol/L POC BUN (7-18) mg/dl BUN (6-23) mg/dl Creatinine (0.6-1.4) mg/dl POC Creatinine (0.6-1.3) mg/dl Est Cr Clr Drug Dosing ml/min Est GFR ( Amer) ml/min Est GFR (Non-Af Amer) ml/min BUN/Creatinine Ratio (10-20) Glucose (70-99(Fasting)) mg/dl POC Glucose (other) (70-99) mg/dl Osmolality (280-300) mOsm/kg Calcium (8.5-10.1) mg/dl POC Ioniz Calcium David (1.12-1.32) mmol/l Phosphorus (2.5-4.9) mg/dl Magnesium (1.7-2.4) mg/dl Total Bilirubin (0.2-1.0) mg/dl Direct Bilirubin (0-0.2) mg/dl AST (13-39) U/L ALT (7-52) U/L Alkaline Phosphatase (34-104) U/L Ammonia 35.0 (18-72) umol/L Troponin I High Sens (0-20) pg/ml Total Protein (6.0-8.3) gm/dl Albumin (3.4-5.0) gm/dl Globulin (2.5-4.0) gm/dl Albumin/Globulin Ratio (0.9-2) Lipase (11-82) U/L Vitamin B1 Vitamin B12 (180-914) pg/ml TSH (0.300-4.500) uIu/ml Thyroxine (T4) (6.09-12.23) mcg/dl Free T3 (2.3-4.2) pg/ml Urine Color Urine Appearance (Clear) Urine pH (4.5-7.5) Ur Specific [place] (1.000-1.030) Urine Protein (Negative) Urine Glucose (UA) (Negative) Urine Ketones (Negative) Urine Blood (Negative) Urine Nitrite (Negative) Urine Bilirubin (Negative) Urine Urobilinogen (Negative) Ur Leukocyte Esterase (Negative) Urine Osmolality (500-800) mOsm/kg Ur Random Sodium 42 mmol/L Nasal Screen MRSA (PCR) Negative (Negative) SARS-CoV-2, RNA, NAAT (NEGATIVE) 02/11/22 02/11/22 02/11/22 Range/Units 10:03 10:03 10:03 WBC 6.54 (4.8-10.8) K/ul RBC 4.31 L (4.63-6.08) M/uL Hgb 12.8 L (14.0-18.0) g/dl POC Hgb (14.0-18.0) g/dl Hct 36.0 L (40.1-51.0) % POC Hct (42-52) % MCV 83.5 (80.0-100.0) fL MCH 29.7 (25.0-34.0) pg MCHC 35.6 (32.0-36.0) g/dL RDW Std Deviation 42.2 (36.4-46.3) fL RDW Coeff of Olivia 13.8 (11.5-14.5) % Plt Count 113 L (130-400) K/uL MPV 9.5 (9.4-12.4) fL Immature Gran % (Auto) % Neut % (Auto) % Lymph % (Auto) % Ramsey % (Auto) % Eos % (Auto) % Baso % (Auto) % Neut # (Auto) (1.4-6.5) K/uL Lymph # (Auto) (1.2-3.4) K/uL Ramsey # (Auto) (0.24-0.82) K/uL Eos # (Auto) (0-0.50) K/uL Baso # (Auto) (0-0.2) K/uL Immature Gran # (Auto) (0.00-0.02) K/uL Platelet Estimate (Normal) POC Sodium (135-144) mmol/L Sodium 121 L (136-145) mmol/L POC Potassium (3.3-5.0) mmol/L Potassium 3.3 L (3.5-5.1) mmol/L POC Chloride (101-112) mmol/L Chloride 88 L (98-107) mmol/L Carbon Dioxide 25 (21-32) mmol/L POC Total CO2 (24-31) mmol/L Anion Gap 8 (3-11) POC Anion Gap (16-25) mmol/L POC BUN (7-18) mg/dl BUN 13 (6-23) mg/dl Creatinine 0.68 (0.6-1.4) mg/dl POC Creatinine (0.6-1.3) mg/dl Est Cr Clr Drug Dosing 122.7 ml/min Est GFR ( Amer) 115.3 ml/min Est GFR (Non-Af Amer) 99.5 ml/min BUN/Creatinine Ratio 19.1 (10-20) Glucose 131 H (70-99(Fasting)) mg/dl POC Glucose (other) (70-99) mg/dl Osmolality (280-300) mOsm/kg Calcium 9.5 (8.5-10.1) mg/dl POC Ioniz Calcium David (1.12-1.32) mmol/l Phosphorus (2.5-4.9) mg/dl Magnesium 2.1 (1.7-2.4) mg/dl Total Bilirubin 1.2 H (0.2-1.0) mg/dl Direct Bilirubin (0-0.2) mg/dl AST 148 H (13-39) U/L ALT 69 H (7-52) U/L Alkaline Phosphatase 73 (34-104) U/L Ammonia (18-72) umol/L Troponin I High Sens (0-20) pg/ml Total Protein 7.7 (6.0-8.3) gm/dl Albumin 4.1 (3.4-5.0) gm/dl Globulin 3.6 (2.5-4.0) gm/dl Albumin/Globulin Ratio 1.1 (0.9-2) Lipase (11-82) U/L Vitamin B1 Pending Vitamin B12 (180-914) pg/ml TSH (0.300-4.500) uIu/ml Thyroxine (T4) (6.09-12.23) mcg/dl Free T3 (2.3-4.2) pg/ml Urine Color Urine Appearance (Clear) Urine pH (4.5-7.5) Ur Specific [place] (1.000-1.030) Urine Protein (Negative) Urine Glucose (UA) (Negative) Urine Ketones (Negative) Urine Blood (Negative) Urine Nitrite (Negative) Urine Bilirubin (Negative) Urine Urobilinogen (Negative) Ur Leukocyte Esterase (Negative) Urine Osmolality (500-800) mOsm/kg Ur Random Sodium mmol/L Nasal Screen MRSA (PCR) (Negative) SARS-CoV-2, RNA, NAAT (NEGATIVE) 02/11/22 02/11/22 02/10/22 Range/Units 10:02 00:30 23:22 WBC (4.8-10.8) K/ul RBC (4.63-6.08) M/uL Hgb (14.0-18.0) g/dl POC Hgb 13.6 L (14.0-18.0) g/dl Hct (40.1-51.0) % POC Hct 40 L (42-52) % MCV (80.0-100.0) fL MCH (25.0-34.0) pg MCHC (32.0-36.0) g/dL RDW Std Deviation (36.4-46.3) fL RDW Coeff of Olivia (11.5-14.5) % Plt Count (130-400) K/uL MPV (9.4-12.4) fL Immature Gran % (Auto) % Neut % (Auto) % Lymph % (Auto) % Ramsey % (Auto) % Eos % (Auto) % Baso % (Auto) % Neut # (Auto) (1.4-6.5) K/uL Lymph # (Auto) (1.2-3.4) K/uL Ramsey # (Auto) (0.24-0.82) K/uL Eos # (Auto) (0-0.50) K/uL Baso # (Auto) (0-0.2) K/uL Immature Gran # (Auto) (0.00-0.02) K/uL Platelet Estimate (Normal) POC Sodium 123 L (135-144) mmol/L Sodium (136-145) mmol/L POC Potassium 3.1 L (3.3-5.0) mmol/L Potassium (3.5-5.1) mmol/L POC Chloride 86 L (101-112) mmol/L Chloride (98-107) mmol/L Carbon Dioxide (21-32) mmol/L POC Total CO2 24 (24-31) mmol/L Anion Gap (3-11) POC Anion Gap 18.0 (16-25) mmol/L POC BUN 16 (7-18) mg/dl BUN (6-23) mg/dl Creatinine (0.6-1.4) mg/dl POC Creatinine 0.8 (0.6-1.3) mg/dl Est Cr Clr Drug Dosing ml/min Est GFR ( Amer) ml/min Est GFR (Non-Af Amer) ml/min BUN/Creatinine Ratio (10-20) Glucose (70-99(Fasting)) mg/dl POC Glucose (other) 147 H (70-99) mg/dl Osmolality (280-300) mOsm/kg Calcium (8.5-10.1) mg/dl POC Ioniz Calcium David 1.13 (1.12-1.32) mmol/l Phosphorus (2.5-4.9) mg/dl Magnesium (1.7-2.4) mg/dl Total Bilirubin (0.2-1.0) mg/dl Direct Bilirubin (0-0.2) mg/dl AST (13-39) U/L ALT (7-52) U/L Alkaline Phosphatase (34-104) U/L Ammonia (18-72) umol/L Troponin I High Sens (0-20) pg/ml Total Protein (6.0-8.3) gm/dl Albumin (3.4-5.0) gm/dl Globulin (2.5-4.0) gm/dl Albumin/Globulin Ratio (0.9-2) Lipase (11-82) U/L Vitamin B1 Vitamin B12 1133 H (180-914) pg/ml TSH (0.300-4.500) uIu/ml Thyroxine (T4) 9.2 (6.09-12.23) mcg/dl Free T3 3.42 (2.3-4.2) pg/ml Urine Color Urine Appearance (Clear) Urine pH (4.5-7.5) Ur Specific [place] (1.000-1.030) Urine Protein (Negative) Urine Glucose (UA) (Negative) Urine Ketones (Negative) Urine Blood (Negative) Urine Nitrite (Negative) Urine Bilirubin (Negative) Urine Urobilinogen (Negative) Ur Leukocyte Esterase (Negative) Urine Osmolality (500-800) mOsm/kg Ur Random Sodium mmol/L Nasal Screen MRSA (PCR) (Negative) SARS-CoV-2, RNA, NAAT NEGATIVE (NEGATIVE) 02/10/22 02/10/22 02/10/22 Range/Units 23:15 23:15 23:15 WBC (4.8-10.8) K/ul RBC (4.63-6.08) M/uL Hgb (14.0-18.0) g/dl POC Hgb (14.0-18.0) g/dl Hct (40.1-51.0) % POC Hct (42-52) % MCV (80.0-100.0) fL MCH (25.0-34.0) pg MCHC (32.0-36.0) g/dL RDW Std Deviation (36.4-46.3) fL RDW Coeff of Olivia (11.5-14.5) % Plt Count (130-400) K/uL MPV (9.4-12.4) fL Immature Gran % (Auto) % Neut % (Auto) % Lymph % (Auto) % Ramsey % (Auto) % Eos % (Auto) % Baso % (Auto) % Neut # (Auto) (1.4-6.5) K/uL Lymph # (Auto) (1.2-3.4) K/uL Ramsey # (Auto) (0.24-0.82) K/uL Eos # (Auto) (0-0.50) K/uL Baso # (Auto) (0-0.2) K/uL Immature Gran # (Auto) (0.00-0.02) K/uL Platelet Estimate (Normal) POC Sodium (135-144) mmol/L Sodium 122 L (136-145) mmol/L POC Potassium (3.3-5.0) mmol/L Potassium 2.8 L (3.5-5.1) mmol/L POC Chloride (101-112) mmol/L Chloride 87 L (98-107) mmol/L Carbon Dioxide 26 (21-32) mmol/L POC Total CO2 (24-31) mmol/L Anion Gap 9 (3-11) POC Anion Gap (16-25) mmol/L POC BUN (7-18) mg/dl BUN 17 (6-23) mg/dl Creatinine 0.79 (0.6-1.4) mg/dl POC Creatinine (0.6-1.3) mg/dl Est Cr Clr Drug Dosing 105.6 ml/min Est GFR ( Amer) 108.5 ml/min Est GFR (Non-Af Amer) 93.6 ml/min BUN/Creatinine Ratio 21.5 H (10-20) Glucose 140 H (70-99(Fasting)) mg/dl POC Glucose (other) (70-99) mg/dl Osmolality 259 L (280-300) mOsm/kg Calcium 9.1 (8.5-10.1) mg/dl POC Ioniz Calcium David (1.12-1.32) mmol/l Phosphorus (2.5-4.9) mg/dl Magnesium 1.6 L (1.7-2.4) mg/dl Total Bilirubin 1.3 H (0.2-1.0) mg/dl Direct Bilirubin 0.3 H (0-0.2) mg/dl AST 171 H (13-39) U/L ALT 73 H (7-52) U/L Alkaline Phosphatase 89 (34-104) U/L Ammonia (18-72) umol/L Troponin I High Sens 8.9 (0-20) pg/ml Total Protein 8.0 (6.0-8.3) gm/dl Albumin 4.4 (3.4-5.0) gm/dl Globulin (2.5-4.0) gm/dl Albumin/Globulin Ratio (0.9-2) Lipase 39 (11-82) U/L Vitamin B1 Vitamin B12 (180-914) pg/ml TSH 1.870 (0.300-4.500) uIu/ml Thyroxine (T4) (6.09-12.23) mcg/dl Free T3 (2.3-4.2) pg/ml Urine Color Urine Appearance (Clear) Urine pH (4.5-7.5) Ur Specific [place] (1.000-1.030) Urine Protein (Negative) Urine Glucose (UA) (Negative) Urine Ketones (Negative) Urine Blood (Negative) Urine Nitrite (Negative) Urine Bilirubin (Negative) Urine Urobilinogen (Negative) Ur Leukocyte Esterase (Negative) Urine Osmolality (500-800) mOsm/kg Ur Random Sodium mmol/L Nasal Screen MRSA (PCR) (Negative) SARS-CoV-2, RNA, NAAT (NEGATIVE) 02/10/22 Range/Units 23:15 WBC 5.96 (4.8-10.8) K/ul RBC 4.46 L (4.63-6.08) M/uL Hgb 13.4 L (14.0-18.0) g/dl POC Hgb (14.0-18.0) g/dl Hct 37.1 L (40.1-51.0) % POC Hct (42-52) % MCV 83.2 (80.0-100.0) fL MCH 30.0 (25.0-34.0) pg MCHC 36.1 H (32.0-36.0) g/dL RDW Std Deviation 42.1 (36.4-46.3) fL RDW Coeff of Olivia 13.9 (11.5-14.5) % Plt Count 100 L (130-400) K/uL MPV 10.6 (9.4-12.4) fL Immature Gran % (Auto) 0.3 % Neut % (Auto) 68.7 % Lymph % (Auto) 19.5 % Ramsey % (Auto) 9.9 % Eos % (Auto) 1.3 % Baso % (Auto) 0.3 % Neut # (Auto) 4.09 (1.4-6.5) K/uL Lymph # (Auto) 1.16 L (1.2-3.4) K/uL Ramsey # (Auto) 0.59 (0.24-0.82) K/uL Eos # (Auto) 0.08 (0-0.50) K/uL Baso # (Auto) 0.02 (0-0.2) K/uL Immature Gran # (Auto) 0.02 (0.00-0.02) K/uL Platelet Estimate Decreased L (Normal) POC Sodium (135-144) mmol/L Sodium (136-145) mmol/L POC Potassium (3.3-5.0) mmol/L Potassium (3.5-5.1) mmol/L POC Chloride (101-112) mmol/L Chloride (98-107) mmol/L Carbon Dioxide (21-32) mmol/L POC Total CO2 (24-31) mmol/L Anion Gap (3-11) POC Anion Gap (16-25) mmol/L POC BUN (7-18) mg/dl BUN (6-23) mg/dl Creatinine (0.6-1.4) mg/dl POC Creatinine (0.6-1.3) mg/dl Est Cr Clr Drug Dosing ml/min Est GFR ( Amer) ml/min Est GFR (Non-Af Amer) ml/min BUN/Creatinine Ratio (10-20) Glucose (70-99(Fasting)) mg/dl POC Glucose (other) (70-99) mg/dl Osmolality (280-300) mOsm/kg Calcium (8.5-10.1) mg/dl POC Ioniz Calcium David (1.12-1.32) mmol/l Phosphorus (2.5-4.9) mg/dl Magnesium (1.7-2.4) mg/dl Total Bilirubin (0.2-1.0) mg/dl Direct Bilirubin (0-0.2) mg/dl AST (13-39) U/L ALT (7-52) U/L Alkaline Phosphatase (34-104) U/L Ammonia (18-72) umol/L Troponin I High Sens (0-20) pg/ml Total Protein (6.0-8.3) gm/dl Albumin (3.4-5.0) gm/dl Globulin (2.5-4.0) gm/dl Albumin/Globulin Ratio (0.9-2) Lipase (11-82) U/L Vitamin B1 Vitamin B12 (180-914) pg/ml TSH (0.300-4.500) uIu/ml Thyroxine (T4) (6.09-12.23) mcg/dl Free T3 (2.3-4.2) pg/ml Urine Color Urine Appearance (Clear) Urine pH (4.5-7.5) Ur Specific [place] (1.000-1.030) Urine Protein (Negative) Urine Glucose (UA) (Negative) Urine Ketones (Negative) Urine Blood (Negative) Urine Nitrite (Negative) Urine Bilirubin (Negative) Urine Urobilinogen (Negative) Ur Leukocyte Esterase (Negative) Urine Osmolality (500-800) mOsm/kg Ur Random Sodium mmol/L Nasal Screen MRSA (PCR) (Negative) SARS-CoV-2, RNA, NAAT (NEGATIVE) Diagnostic Findings Chest X-Ray 02/10/22 23:06 SINGLE VIEW CHEST CLINICAL HISTORY: Vomit FINDINGS: An AP, portable, upright chest radiograph is obtained. No prior studies are available for comparison at the time of dictation. The cardiomediastinal silhouette is unremarkable. The lungs and pleural spaces are clear. No pneumothorax is seen. The bony thorax is grossly intact. Calcific tendinopathy is noted in the left shoulder. IMPRESSION: No active disease in the chest. ACT 112: Negative or not required by law. Electronically signed by: Judah Abebe M.D. 02/10/2022 11:[address] 02/10/22 23:06 CT SCAN OF THE BRAIN WITHOUT IV CONTRAST CLINICAL HISTORY: Change in mental status. COMPARISON STUDY: CT of the brain dated 12/07/2018. TECHNIQUE: Unenhanced axial CT scan of the brain is performed from the vertex to the skull base. A dose lowering technique was utilized adhering to the principles of ALARA. CT DOSE: 614.27 mGy.cm FINDINGS: Brain parenchyma: There is age-related involutional change noting mild subcortical and periventricular microangiopathic disease. There is no hemorrhage, mass effect, or evidence of acute territorial ischemia by CT criteria. Faint mineralization is noted in the basal ganglia. Anderson-white matter differentiation is preserved. No extra-axial fluid collection is seen. There is a 1.0 cm suprasellar nodule seen on axial image #10 (or image #37 of the high resolution reformats) adjacent to the basilar tip. Ventricles, sulci, cisterns: Prominent secondary to involutional change. Intracranial vasculature: There is minimal atherosclerotic calcification of the cavernous carotid arteries.. Calvarium: Unremarkable. Sinuses and mastoids: The visualized paranasal sinuses are clear. The mastoid air cells are well pneumatized. Orbits: The bony orbits are grossly intact. IMPRESSION: 1. There is no hemorrhage, mass effect, or evidence of acute territorial ischemia by CT criteria. 2. There is a 10 mm ovoid nodule in the suprasellar region located adjacent to the tip of the basilar. This may represent aneurysm, and correlation with a CT angiogram of the brain is recommended for further assessment. ACT 112: Negative or not required by law. Electronically signed by: Judah Abebe M.D. 02/11/2022 12:22 AM KUB X-Ray 02/11/22 08:35 XR KUB/Abdomen 1 view CLINICAL HISTORY: vomiting TECHNIQUE: 1 view of the abdomen was obtained. Comparison: Comparison is made to CT abdomen pelvis 19 FINDINGS: Lung bases are unremarkable. Degenerative changes are seen in the visualized skeleton. The bowel gas pattern is nonobstructive. A moderate amount of stool is noted within the large bowel. IMPRESSION: Nonobstructive bowel gas pattern. ACT 112: Negative or not required by law. Electronically signed by: Valentino Harvey M.D. 02/11/2022 9:22 AM Head CTA 02/11/22 09:39 CT angio head wo/w CLINICAL HISTORY: hyponatremia, confusion, f/u aneursym TECHNIQUE: Contiguous axial CT images of the head were acquired from the base of the skull to the vertex without intravenous contrast administration. CT angiography of the head was performed following intravenous administration of iodinated contrast. Coronal and sagittal MIPS were obtained from the axial data set and were submitted for review. Automated dose lowering techniques and/or adjustment according to patient size were utilized for this examination. All measurements were calculated based on NASCET criteria. CT DOSE: 670.98 mGy.cm Comparison: Comparison is made to CT head 02/11/2022 FINDINGS: CT head: Areas of decreased attenuation are present in the periventricular and subcortical white matter bilaterally consistent with small vessel ischemic disease. Generalized cerebral atrophy with commensurate enlargement of the ventricles, sulci, and cisterns is also present. There is no acute intracranial hemorrhage or evidence of acute territorial infarction. No shift of the midline structures, mass effect, or extra-axial abnormalities are shown. Atherosclerotic calcifications are present in the intracranial segments of the internal carotid arteries. Calcification of the pineal gland noted. CTA Head: The anterior and posterior cerebral circulations are patent. No hemodynamically significant stenosis, aneurysm, dissection, or arteriovenous malformation is shown. The right vertebral artery is dominant. IMPRESSION: 1. No acute intracranial hemorrhage, evidence of acute territorial infarction, or other acute intracranial disease process. 2. No occlusion, hemodynamically significant stenosis, aneurysm, dissection, or arteriovenous malformation in the major intracranial arteries. In particular, no basilar tip aneurysm is seen, the radiodensity in the anterior [place] is not vascular in character. Assessment of stenosis of the internal carotid arteries is based on NASCET criteria. ACT 112: Negative or not required by law. Electronically signed by: Valentino Harvey M.D. 02/11/2022 12:19 PM PG Care Time/CCT Total # of Minutes Spent Total Time Spent with Patient: Total time spent is greater than 50% in coordination of care (as documented) at patient's floor/unit and/or counseling patient: Coding Level of Care Code None Diagnoses Metabolic encephalopathy G93.41 Acute psychosis F23 Hyponatremia E87.1 Insomnia G47.00 Bipolar 1 disorder F31.9 Electrolyte abnormality E87.[address] scan R93.89 H/O: HTN (hypertension) Z86.79 HLD (hyperlipidemia) E78.5 Pre-diabetes R73.03 Polydipsia R63.1 Elevated LFTs R79.89
[2022-02-11] MEDS ORDERED: MELOXICAM 7.5 MG TAB PO SCH (09:00)
[2022-02-11] MEDS ORDERED: POTASSIUM CHLORIDE CRTAB 20 MEQ TABCR PO SCH (09:00)
[2022-02-11] MEDS: POTASSIUM CHLORIDE / WTR 10 MEQ/100 ML PLCT IV SCH ×4 (09:13→12:47)
--- NOTE | 2022-02-11 09:24 | XRay Report ---
XR KUB/Abdomen 1 view CLINICAL HISTORY: vomiting TECHNIQUE: 1 view of the abdomen was obtained. Comparison: Comparison is made to CT abdomen pelvis 19 FINDINGS: Lung bases are unremarkable. Degenerative changes are seen in the visualized skeleton. The bowel gas pattern is nonobstructive. A moderate amount of stool is noted within the large bowel. IMPRESSION: Nonobstructive bowel gas pattern. ACT 112: Negative or not required by law. Electronically signed by: Valentino Harvey M.D. 02/11/2022 9:22 AM
[2022-02-11] MEDS ORDERED: levETIRAcetam 500 MG in 0.9 % SODIUM CHLORIDE 100 ML IV STA (09:37)
[2022-02-11] MEDS ORDERED: bisacodyL 10 MG SUPP PR STA (09:37)
[2022-02-11] MEDS ORDERED: SODIUM CHLORIDE 0.9% 1000ML 1,000 ML IV SCH (09:45)
[2022-02-11 11:06] LABS: Hemoglobin 12.8 g/dl (14.0-18.0); Mean Corpuscular Hemoglobin 29.7 pg (25.0-34.0); Mean Corpuscular Hgb Conc 35.6 g/dL (32.0-36.0); Mean Corpuscular Volume 83.5 fL (80.0-100.0); Mean Platelet Volume 9.5 fL (9.4-12.4); Platelet Count 113 K/uL (130-400); RDW Coefficient of Variation 13.8 % (11.5-14.5); RDW Standard Deviation 42.2 fL (36.4-46.3); Red Blood Count 4.31 M/uL (4.63-6.08); White Blood Count 6.54 K/ul (4.8-10.8)
[2022-02-11 11:21] LABS: Appearance Urine Clear (Clear); Bilirubin Urine Negative (Negative); Blood Urine Negative (Negative); Color Urine Yellow; Glucose Urine UA Negative (Negative); Ketones Urine Negative (Negative); Leukocyte Esterase Urine Negative (Negative); Nitrite Urine Negative (Negative); Protein Urine Negative (Negative); Specific Gravity Urine 1.004 (1.000-1.030); Urobilinogen Urine Negative (Negative)
[2022-02-11 11:34] LABS: Albumin Globulin Ratio 1.1 (0.9-2); Albumin Level 4.1 gm/dl (3.4-5.0); BUN Creatinine Ratio 19.1 (10-20); Bilirubin,Total 1.2 mg/dl (0.2-1.0); Calcium 9.5 mg/dl (8.5-10.1); Creatinine Clr Calc Pharmacy 122.7 ml/min; Est GFR (African American) 115.3 ml/min; Est GFR (Non-African American) 99.5 ml/min; Globulin 3.6 gm/dl (2.5-4.0); Magnesium 2.1 mg/dl (1.7-2.4); Potassium 3.3 mmol/L (3.5-5.1); Total Protein 7.7 gm/dl (6.0-8.3)
[2022-02-11] MEDS ORDERED: POTASSIUM CHLORIDE CRTAB 20 MEQ TABCR PO STA (11:41)
[2022-02-11 11:46] LABS: T4 Thyroxine 9.2 mcg/dl (6.09-12.23)
[2022-02-11] MEDS ORDERED: SODIUM CHLORIDE 3 % 100 ML IV ONE (11:46)
[2022-02-11] MEDS ORDERED: STAT IV STA (11:46)
[2022-02-11 11:51] LABS: T3 Free 3.42 pg/ml (2.3-4.2)
[2022-02-11] MEDS ORDERED: OPTIRAY 320 500ml IV ONE (11:58)
--- NOTE | 2022-02-11 12:21 | CT Scan Report ---
CT angio head wo/w CLINICAL HISTORY: hyponatremia, confusion, f/u aneursym TECHNIQUE: Contiguous axial CT images of the head were acquired from the base of the skull to the marylou vivi without intravenous contrast administration. CT angiography of the head was performed following intravenous administration of iodinated contrast. Coronal and sagittal MIPS were obtained from the ax ial data set and were submitted for review. Automated dose lowering techniques and/or adjustment acc ording to patient size were utilized for this examination. All measurements were calculated based on NASCET criteria. CT DOSE: 670.98 mGy.cm Comparison: Comparison is made to CT head 02/11/2022 FINDINGS: CT head: Areas of decreased attenuation are present in the periventricular and subcortical white bharat er bilaterally consistent with small vessel ischemic disease. Generalized cerebral atrophy with comme nsurate enlargement of the ventricles, sulci, and cisterns is also present. There is no acute intracr anial hemorrhage or evidence of acute territorial infarction. No shift of the midline structures, mas s effect, or extra-axial abnormalities are shown. Atherosclerotic calcifications are present in the intracranial segments of the internal carotid arteries. Calcification of the pineal gland noted. CTA Head: The anterior and posterior cerebral circulations are patent. No hemodynamically significan t stenosis, aneurysm, dissection, or arteriovenous malformation is shown. The right vertebral artery is dominant. IMPRESSION: 1. No acute intracranial hemorrhage, evidence of acute territorial infarction, or other acute intrac ranial disease process. 2. No occlusion, hemodynamically significant stenosis, aneurysm, dissection, or arteriovenous malfor mation in the major intracranial arteries. In particular, no basilar tip aneurysm is seen, the radiod ensity in the anterior [place] is not vascular in character. Assessment of stenosis of the internal carotid arteries is based on NASCET criteria. ACT 112: Negative or not required by law. Electronically signed by: Valentino Harvey M.D. 02/11/2022 12:19 PM
--- NOTE | 2022-02-11 12:34 | Nephrology Consultation ---
Date of Consultation February 11, 2022 Assessment & Plan (1) Hyponatremia: Urine osmolality 141 mOsm/L. Clinical history of polydipsia complicated by chlorthalidone use. Anticipate that this will autocorrect. Close monitoring will be required. Low risk for ODS given baseline nutritional status is good, there is no underlying liver disease, and serum sodium was 133 on 02/06/22. Hold additional sodium replacement. Continue aggressive replacement of potassium which has been ordered. Hold chlorthalidone. Maintain 1.2 L daily fluid restriction. Repeat renal profile ordered for this afternoon. (2) Acute psychosis: Psychiatric consultation pending. Document I/O's. Maintain 1:1 and enforce fluid restriction. (3) Electrolyte abnormality: IV magnesium and potassium replacement provided. Additional oral KCl is being provided now. Repeat metabolic profile this afternoon. Regular diet. (4) Bipolar 1 disorder: History of Present Illness Reason for Consultation: Hyponatremia Requesting Physician: Bryant Thomas Attending Physician: Bryant Thomas History of Present Illness Mr. Emery Perez is a 66 year-old male with hypertension, DM, gout, and bipolar disorder. He presented to [facility] yesterday after being found down with mental status changes and having recently vomited. Concern for possible unwitnessed CVA. Emery was brought to the ER. He has bee demonstrating active psychosis, including identifying as multiple different personalities. There is no prior known history of seizure disorder. No recent changes in medication noted. Emery admits to drinking large amounts of fluid. 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 He has had a large amount of reported clear urine since transferring to the medical floor. Emery was resting comfortably in bed with a 1:1 at the bedside during my assessment. He was cooperative and denied any complaints. No fluid retention or edema. No diarrhea or other GI symptoms reported. I discussed the plan of care with the patient's RN and Julia Power PA-C. Laboratory studies notable for a stable serum sodium of 121 mEq/L this AM. IV NSS provided in the ER with continued infusion post admission. Emery's urine osmolality is 141 mOsm/L. Laboratory studies also notable for hypokalemia and hypomagnesemia. He denies pain. He is tolerating fluid restriction of 1.[address] of the head unremarkable with no cerebral edema. Home medications included chlorthalidone which has been appropriately held. Allergies Allergy/AdvReac Type Severity Reaction Status Date / Time diphenhydramine Allergy Unknown Unknown Verified 02/11/22 01:31 guaifenesin Allergy Unknown Unknown Verified 02/11/22 01:31 ibuprofen Allergy Unknown Unknown Verified 02/11/22 01:31 pseudoephedrine Allergy Unknown Unknown Verified 02/11/22 01:31 Home Medications Medication Instructions Recorded Confirmed Type chlorthalidone 25 mg tablet 25 mg PO DAILY 12/07/18 02/11/22 History metformin 500 mg tablet 500 mg PO DAILY 12/07/18 02/11/22 History allopurinol 100 mg tablet 100 mg PO DAILY 02/06/22 02/11/22 History acetaminophen 325 mg tablet 650 mg PO Q6 PRN Pain 02/11/22 02/11/22 History atorvastatin 40 mg tablet 40 mg PO HS 02/11/22 02/11/22 History levetiracetam 1,000 mg tablet 1,000 mg PO HS 02/11/22 02/11/22 History levetiracetam 500 mg tablet 500 mg PO BID 02/11/22 02/11/22 History lisinopril 10 mg tablet 10 mg PO DAILY 02/11/22 02/11/22 History meloxicam 15 mg tablet 15 mg PO DAILY 02/11/22 02/11/22 History quetiapine 300 mg tablet 300 mg PO HS 02/11/22 02/11/22 History quetiapine 50 mg tablet 50 mg PO .EVERY 30 MINUTES PRN 02/11/22 02/11/22 History Agitation quetiapine 50 mg tablet 50 mg PO BID 02/11/22 02/11/22 History Patient History Medical History (Updated 02/11/22 @ 12:42 by Harlan Bernal DO) Bipolar 1 disorder Family History Other No significant family history Social History Smoking Status: Unknown if ever smoked Preferred Language: Vietnamese Communication Ability: Effective Transportation Job Titles Required: No Beliefs That Will Affect Care: None marital status: Current Living Situation: Personal Care Facility and Other Current Living Situation Comment: Lives in [facility]. Feels Safe at Home: Declines to Answer Assistive Devices: None Review of Systems Review of Systems: All systems reviewed & are unremarkable except as noted in HPI & below Physical Exam Constitutional: well developed; no acute distress Eyes: no scleral abnormality and no corneal abnormality ENMT: Mouth: no oral mucosal abnormality and oral mucous membranes not dry Neck: normal visual inspection and trachea midline Respiratory: normal respiratory effort Auscultation: lungs clear to auscultation bilaterally Cardiovascular: Rate/Rhythm: regular rate Heart Sounds: normal S1 and normal S2 Extremities: no edema Musculoskeletal: Extremities: no cyanosis and no clubbing Skin: + turgor decreased; no lesions Neurologic: Motor/Sensory: no tremor and no asterixis Psychiatric: Orientation: alert and cooperative Results & Data ([facility]) Vital Signs (Past 12 Hours) Vital Signs Temp Pulse Pulse Pulse Resp BP BP 02/11/22 09:37 71 02/11/22 04:40 02/11/22 04:40 36.3 C L 72 18 183/96 H 02/11/22 04:40 02/11/22 04:40 36.3 C L 72 18 183/96 H 02/11/22 04:45 78 18 135/76 02/11/22 03:20 02/11/22 03:10 02/11/22 03:00 02/11/22 02:50 02/11/22 02:40 02/11/22 02:30 66 12 02/11/22 02:20 76 17 02/11/22 02:10 69 13 02/11/22 02:00 65 12 02/11/22 01:50 66 15 02/11/22 01:40 68 17 02/11/22 01:38 138/84 02/11/22 01:38 68 13 02/11/22 01:30 66 14 02/11/22 01:20 67 12 02/11/22 01:15 68 14 02/11/22 00:54 02/11/22 01:38 66 14 138/84 Pulse Ox O2 Del Method 02/11/22 09:37 02/11/22 04:40 Room Air 02/11/22 04:40 98 Room Air 02/11/22 04:40 Room Air 02/11/22 04:40 98 Room Air 02/11/22 04:45 96 Room Air 02/11/22 03:20 96 02/11/22 03:10 97 02/11/22 03:00 96 02/11/22 02:50 96 02/11/22 02:40 96 02/11/22 02:30 95 02/11/22 02:20 02/11/22 02:10 02/11/22 02:00 96 02/11/22 01:50 95 02/11/22 01:40 96 02/11/22 01:38 02/11/22 01:38 96 02/11/22 01:30 95 02/11/22 01:20 94 02/11/22 01:15 96 02/11/22 00:54 93 02/11/22 01:38 94 Room Air Laboratory Results Laboratory Results - last 24 hr 02/10/22 02/10/22 02/10/22 23:15 23:15 23:15 WBC 5.96 RBC 4.46 L Hgb 13.4 L POC Hgb Hct 37.1 L POC Hct MCV 83.2 MCH 30.0 MCHC 36.1 H RDW Std Deviation 42.1 RDW Coeff of Olivia 13.9 Plt Count 100 L MPV 10.6 Immature Gran % (Auto) 0.3 Neut % (Auto) 68.7 Lymph % (Auto) 19.5 [place] % (Auto) 9.9 Eos % (Auto) 1.3 Baso % (Auto) 0.3 Neut # (Auto) 4.09 Lymph # (Auto) 1.16 L [place] # (Auto) 0.59 Eos # (Auto) 0.08 Baso # (Auto) 0.02 Immature Gran # (Auto) 0.02 Platelet Estimate Decreased L POC Sodium Sodium 122 L POC Potassium Potassium 2.8 L POC Chloride Chloride 87 L Carbon Dioxide 26 POC Total CO2 Anion Gap 9 POC Anion Gap POC BUN BUN 17 Creatinine 0.79 POC Creatinine Est Cr Clr Drug Dosing 105.6 Est GFR ( Amer) 108.5 Est GFR (Non-Af Amer) 93.6 BUN/Creatinine Ratio 21.5 H Glucose 140 H POC Glucose (other) Osmolality 259 L Calcium 9.1 POC Ioniz Calcium David Magnesium 1.6 L Total Bilirubin 1.3 H Direct Bilirubin 0.3 H AST 171 H ALT 73 H Alkaline Phosphatase 89 Ammonia Troponin I High Sens 8.9 Total Protein 8.0 Albumin 4.4 Globulin Albumin/Globulin Ratio Lipase 39 Vitamin B1 Vitamin B12 TSH Thyroxine (T4) Free T3 Urine Color Urine Appearance Urine pH Ur Specific [place] Urine Protein Urine Glucose (UA) Urine Ketones Urine Blood Urine Nitrite Urine Bilirubin Urine Urobilinogen Ur Leukocyte Esterase Urine Osmolality Ur Random Sodium Nasal Screen MRSA (PCR) SARS-CoV-2, RNA, NAAT 02/10/22 02/10/22 02/11/22 23:15 23:22 00:30 WBC RBC Hgb POC Hgb 13.6 L Hct POC Hct 40 L MCV MCH MCHC RDW Std Deviation RDW Coeff of Olivia Plt Count MPV Immature Gran % (Auto) Neut % (Auto) Lymph % (Auto) [place] % (Auto) Eos % (Auto) Baso % (Auto) Neut # (Auto) Lymph # (Auto) [place] # (Auto) Eos # (Auto) Baso # (Auto) Immature Gran # (Auto) Platelet Estimate POC Sodium 123 L Sodium POC Potassium 3.1 L Potassium POC Chloride 86 L Chloride Carbon Dioxide POC Total CO2 24 Anion Gap POC Anion Gap 18.0 POC BUN 16 BUN Creatinine POC Creatinine 0.8 Est Cr Clr Drug Dosing Est GFR ( Amer) Est GFR (Non-Af Amer) BUN/Creatinine Ratio Glucose POC Glucose (other) 147 H Osmolality Calcium POC Ioniz Calcium David 1.13 Magnesium Total Bilirubin Direct Bilirubin AST ALT Alkaline Phosphatase Ammonia Troponin I High Sens Total Protein Albumin Globulin Albumin/Globulin Ratio Lipase Vitamin B1 Vitamin B12 TSH 1.870 Thyroxine (T4) Free T3 Urine Color Urine Appearance Urine pH Ur Specific [place] Urine Protein Urine Glucose (UA) Urine Ketones Urine Blood Urine Nitrite Urine Bilirubin Urine Urobilinogen Ur Leukocyte Esterase Urine Osmolality Ur Random Sodium Nasal Screen MRSA (PCR) SARS-CoV-2, RNA, NAAT NEGATIVE 02/11/22 02/11/22 02/11/22 10:02 10:03 10:03 WBC 6.54 RBC 4.31 L Hgb 12.8 L POC Hgb Hct 36.0 L POC Hct MCV 83.5 MCH 29.7 MCHC 35.6 RDW Std Deviation 42.2 RDW Coeff of [place] 13.8 Plt Count 113 L MPV 9.5 Immature Gran % (Auto) Neut % (Auto) Lymph % (Auto) [place] % (Auto) Eos % (Auto) Baso % (Auto) Neut # (Auto) Lymph # (Auto) [place] # (Auto) Eos # (Auto) Baso # (Auto) Immature Gran # (Auto) Platelet Estimate POC Sodium Sodium 121 L POC Potassium Potassium 3.3 L POC Chloride Chloride 88 L Carbon Dioxide 25 POC Total CO2 Anion Gap 8 POC Anion Gap POC BUN BUN 13 Creatinine 0.68 POC Creatinine Est Cr Clr Drug Dosing 122.7 Est GFR ( Amer) 115.3 Est GFR (Non-Af Amer) 99.5 BUN/Creatinine Ratio 19.1 Glucose 131 H POC Glucose (other) Osmolality Calcium 9.5 POC Ioniz Calcium David Magnesium 2.1 Total Bilirubin 1.2 H Direct Bilirubin AST 148 H ALT 69 H Alkaline Phosphatase 73 Ammonia Troponin I High Sens Total Protein 7.7 Albumin 4.1 Globulin 3.6 Albumin/Globulin Ratio 1.1 Lipase Vitamin B1 Vitamin B12 1133 H TSH Thyroxine (T4) 9.2 Free T3 3.42 Urine Color Urine Appearance Urine pH Ur Specific [place] Urine Protein Urine Glucose (UA) Urine Ketones Urine Blood Urine Nitrite Urine Bilirubin Urine Urobilinogen Ur Leukocyte Esterase Urine Osmolality Ur Random Sodium Nasal Screen MRSA (PCR) SARS-CoV-2, RNA, NAAT 02/11/22 02/11/22 02/11/22 10:03 10:04 11:01 WBC RBC Hgb POC Hgb Hct POC Hct MCV MCH MCHC RDW Std Deviation RDW Coeff of Olivia Plt Count MPV Immature Gran % (Auto) Neut % (Auto) Lymph % (Auto) [place] % (Auto) Eos % (Auto) Baso % (Auto) Neut # (Auto) Lymph # (Auto) [place] # (Auto) Eos # (Auto) Baso # (Auto) Immature Gran # (Auto) Platelet Estimate POC Sodium Sodium POC Potassium Potassium POC Chloride Chloride Carbon Dioxide POC Total CO2 Anion Gap POC Anion Gap POC BUN BUN Creatinine POC Creatinine Est Cr Clr Drug Dosing Est GFR ( Amer) Est GFR (Non-Af Amer) BUN/Creatinine Ratio Glucose POC Glucose (other) Osmolality Calcium POC Ioniz Calcium David Magnesium Total Bilirubin Direct Bilirubin AST ALT Alkaline Phosphatase Ammonia 35.0 Troponin I High Sens Total Protein Albumin Globulin Albumin/Globulin Ratio Lipase Vitamin B1 Pending Vitamin B12 TSH Thyroxine (T4) Free T3 Urine Color Urine Appearance Urine pH Ur Specific [place] Urine Protein Urine Glucose (UA) Urine Ketones Urine Blood Urine Nitrite Urine Bilirubin Urine Urobilinogen Ur Leukocyte Esterase Urine Osmolality Ur Random Sodium Nasal Screen MRSA (PCR) Negative SARS-CoV-2, RNA, NAAT 02/11/22 02/11/22 02/11/22 11:12 11:12 11:12 WBC RBC Hgb POC Hgb Hct POC Hct MCV MCH MCHC RDW Std Deviation RDW Coeff of Olivia Plt Count MPV Immature Gran % (Auto) Neut % (Auto) Lymph % (Auto) [place] % (Auto) Eos % (Auto) Baso % (Auto) Neut # (Auto) Lymph # (Auto) [place] # (Auto) Eos # (Auto) Baso # (Auto) Immature Gran # (Auto) Platelet Estimate POC Sodium Sodium POC Potassium Potassium POC Chloride Chloride Carbon Dioxide POC Total CO2 Anion Gap POC Anion Gap POC BUN BUN Creatinine POC Creatinine Est Cr Clr Drug Dosing Est GFR ( Amer) Est GFR (Non-Af Amer) BUN/Creatinine Ratio Glucose POC Glucose (other) Osmolality Calcium POC Ioniz Calcium David Magnesium Total Bilirubin Direct Bilirubin AST ALT Alkaline Phosphatase Ammonia Troponin I High Sens Total Protein Albumin Globulin Albumin/Globulin Ratio Lipase Vitamin B1 Vitamin B12 TSH Thyroxine (T4) Free T3 Urine Color Yellow Urine Appearance Clear Urine pH 8.0 H Ur Specific [place] 1.004 Urine Protein Negative Urine Glucose (UA) Negative Urine Ketones Negative Urine Blood Negative Urine Nitrite Negative Urine Bilirubin Negative Urine Urobilinogen Negative Ur Leukocyte Esterase Negative Urine Osmolality 141 L Ur Random Sodium 42 Nasal Screen MRSA (PCR) SARS-CoV-2, RNA, NAAT Diagnostic Findings CT hear personally reviewed. PG Care Time/CCT Total # of Minutes Spent Total Time Spent with Patient: Total time spent is greater than 50% in coordination of care (as documented) at patient's floor/unit and/or counseling patient: Coding Level of Care Code 11415 Inpt Consult Level 4 Diagnoses Hyponatremia E87.1 Acute psychosis F23 Electrolyte abnormality E87.8 Bipolar 1 disorder F31.9
--- NOTE | 2022-02-11 15:20 | Communication Note ---
Date of Service: February 11, 2022 Initial consult received. Case reviewed with Julia Power PA-C. Reviewed PDMP to confirm rx temazepam 15 mg hs filled 01/30 by LORIN Kaur as office currently closed. Appears that Depakote stopped in favor of loading of Keprra at [facility]. Admit 02/06 there for poor sleep and islam preoccupation consistent with hx of britta. Patient was found unresponsive/vomit there. Patient is pleasantly confused, stating things that don't make sense about "brain burn". Remains significantly hyponatremic. Rec. D/C Keppra, avoid psych meds unless aggressive given low sodium. May use Ativan prn agitation. Full consult to follow. Patient to remain on 1-on-1 due to confusion and plan to return to [facility]. 02/11/22 02/11/22 02/11/22 Range/Units 11:12 11:12 11:12 WBC (4.8-10.8) K/ul RBC (4.63-6.08) M/uL Hgb (14.0-18.0) g/dl POC Hgb (14.0-18.0) g/dl Hct (40.1-51.0) % POC Hct (42-52) % MCV (80.0-100.0) fL MCH (25.0-34.0) pg MCHC (32.0-36.0) g/dL RDW Std Deviation (36.4-46.3) fL RDW Coeff of Olivia (11.5-14.5) % Plt Count (130-400) K/uL MPV (9.4-12.4) fL Immature Gran % (Auto) % Neut % (Auto) % Lymph % (Auto) % Esmeralda % (Auto) % Eos % (Auto) % Baso % (Auto) % Neut # (Auto) (1.4-6.5) K/uL Lymph # (Auto) (1.2-3.4) K/uL Esmeralda # (Auto) (0.24-0.82) K/uL Eos # (Auto) (0-0.50) K/uL Baso # (Auto) (0-0.2) K/uL Immature Gran # (Auto) (0.00-0.02) K/uL Platelet Estimate (Normal) POC Sodium (135-144) mmol/L Sodium (136-145) mmol/L POC Potassium (3.3-5.0) mmol/L Potassium (3.5-5.1) mmol/L POC Chloride (101-112) mmol/L Chloride (98-107) mmol/L Carbon Dioxide (21-32) mmol/L POC Total CO2 (24-31) mmol/L Anion Gap (3-11) POC Anion Gap (16-25) mmol/L POC BUN (7-18) mg/dl BUN (6-23) mg/dl Creatinine (0.6-1.4) mg/dl POC Creatinine (0.6-1.3) mg/dl Est Cr Clr Drug Dosing ml/min Est GFR ( Amer) ml/min Est GFR (Non-Af Amer) ml/min BUN/Creatinine Ratio (10-20) Glucose (70-99(Fasting)) mg/dl POC Glucose (other) (70-99) mg/dl Osmolality (280-300) mOsm/kg Calcium (8.5-10.1) mg/dl POC Ioniz Calcium David (1.12-1.32) mmol/l Magnesium (1.7-2.4) mg/dl Total Bilirubin (0.2-1.0) mg/dl Direct Bilirubin (0-0.2) mg/dl AST (13-39) U/L ALT (7-52) U/L Alkaline Phosphatase (34-104) U/L Ammonia (18-72) umol/L Troponin I High Sens (0-20) pg/ml Total Protein (6.0-8.3) gm/dl Albumin (3.4-5.0) gm/dl Globulin (2.5-4.0) gm/dl Albumin/Globulin Ratio (0.9-2) Lipase (11-82) U/L Vitamin B1 Vitamin B12 (180-914) pg/ml TSH (0.300-4.500) uIu/ml Thyroxine (T4) (6.09-12.23) mcg/dl Free T3 (2.3-4.2) pg/ml Urine Color Yellow Urine Appearance Clear (Clear) Urine pH 8.0 H (4.5-7.5) Ur Specific [place] 1.004 (1.000-1.030) Urine Protein Negative (Negative) Urine Glucose (UA) Negative (Negative) Urine Ketones Negative (Negative) Urine Blood Negative (Negative) Urine Nitrite Negative (Negative) Urine Bilirubin Negative (Negative) Urine Urobilinogen Negative (Negative) Ur Leukocyte Esterase Negative (Negative) Urine Osmolality 141 L (500-800) mOsm/kg Ur Random Sodium 42 mmol/L Nasal Screen MRSA (PCR) (Negative) SARS-CoV-2, RNA, NAAT (NEGATIVE) 02/11/22 02/11/22 02/11/22 Range/Units 11:01 10:04 10:03 WBC (4.8-10.8) K/ul RBC (4.63-6.08) M/uL Hgb (14.0-18.0) g/dl POC Hgb (14.0-18.0) g/dl Hct (40.1-51.0) % POC Hct (42-52) % MCV (80.0-100.0) fL MCH (25.0-34.0) pg MCHC (32.0-36.0) g/dL RDW Std Deviation (36.4-46.3) fL RDW Coeff of Olivia (11.5-14.5) % Plt Count (130-400) K/uL MPV (9.4-12.4) fL Immature Gran % (Auto) % Neut % (Auto) % Lymph % (Auto) % Esmeralda % (Auto) % Eos % (Auto) % Baso % (Auto) % Neut # (Auto) (1.4-6.5) K/uL Lymph # (Auto) (1.2-3.4) K/uL Esmeralda # (Auto) (0.24-0.82) K/uL Eos # (Auto) (0-0.50) K/uL Baso # (Auto) (0-0.2) K/uL Immature Gran # (Auto) (0.00-0.02) K/uL Platelet Estimate (Normal) POC Sodium (135-144) mmol/L Sodium (136-145) mmol/L POC Potassium (3.3-5.0) mmol/L Potassium (3.5-5.1) mmol/L POC Chloride (101-112) mmol/L Chloride (98-107) mmol/L Carbon Dioxide (21-32) mmol/L POC Total CO2 (24-31) mmol/L Anion Gap (3-11) POC Anion Gap (16-25) mmol/L POC BUN (7-18) mg/dl BUN (6-23) mg/dl Creatinine (0.6-1.4) mg/dl POC Creatinine (0.6-1.3) mg/dl Est Cr Clr Drug Dosing ml/min Est GFR ( Amer) ml/min Est GFR (Non-Af Amer) ml/min BUN/Creatinine Ratio (10-20) Glucose (70-99(Fasting)) mg/dl POC Glucose (other) (70-99) mg/dl Osmolality (280-300) mOsm/kg Calcium (8.5-10.1) mg/dl POC Ioniz Calcium David (1.12-1.32) mmol/l Magnesium (1.7-2.4) mg/dl Total Bilirubin (0.2-1.0) mg/dl Direct Bilirubin (0-0.2) mg/dl AST (13-39) U/L ALT (7-52) U/L Alkaline Phosphatase (34-104) U/L Ammonia 35.0 (18-72) umol/L Troponin I High Sens (0-20) pg/ml Total Protein (6.0-8.3) gm/dl Albumin (3.4-5.0) gm/dl Globulin (2.5-4.0) gm/dl Albumin/Globulin Ratio (0.9-2) Lipase (11-82) U/L Vitamin B1 Pending Vitamin B12 (180-914) pg/ml TSH (0.300-4.500) uIu/ml Thyroxine (T4) (6.09-12.23) mcg/dl Free T3 (2.3-4.2) pg/ml Urine Color Urine Appearance (Clear) Urine pH (4.5-7.5) Ur Specific [place] (1.000-1.030) Urine Protein (Negative) Urine Glucose (UA) (Negative) Urine Ketones (Negative) Urine Blood (Negative) Urine Nitrite (Negative) Urine Bilirubin (Negative) Urine Urobilinogen (Negative) Ur Leukocyte Esterase (Negative) Urine Osmolality (500-800) mOsm/kg Ur Random Sodium mmol/L Nasal Screen MRSA (PCR) Negative (Negative) SARS-CoV-2, RNA, NAAT (NEGATIVE) 02/11/22 02/11/22 02/11/22 Range/Units 10:03 10:03 10:02 WBC 6.54 (4.8-10.8) K/ul RBC 4.31 L (4.63-6.08) M/uL Hgb 12.8 L (14.0-18.0) g/dl POC Hgb (14.0-18.0) g/dl Hct 36.0 L (40.1-51.0) % POC Hct (42-52) % MCV 83.5 (80.0-100.0) fL MCH 29.7 (25.0-34.0) pg MCHC 35.6 (32.0-36.0) g/dL RDW Std Deviation 42.2 (36.4-46.3) fL RDW Coeff of Olivia 13.8 (11.5-14.5) % Plt Count 113 L (130-400) K/uL MPV 9.5 (9.4-12.4) fL Immature Gran % (Auto) % Neut % (Auto) % Lymph % (Auto) % Esmeralda % (Auto) % Eos % (Auto) % Baso % (Auto) % Neut # (Auto) (1.4-6.5) K/uL Lymph # (Auto) (1.2-3.4) K/uL Esmeralda # (Auto) (0.24-0.82) K/uL Eos # (Auto) (0-0.50) K/uL Baso # (Auto) (0-0.2) K/uL Immature Gran # (Auto) (0.00-0.02) K/uL Platelet Estimate (Normal) POC Sodium (135-144) mmol/L Sodium 121 L (136-145) mmol/L POC Potassium (3.3-5.0) mmol/L Potassium 3.3 L (3.5-5.1) mmol/L POC Chloride (101-112) mmol/L Chloride 88 L (98-107) mmol/L Carbon Dioxide 25 (21-32) mmol/L POC Total CO2 (24-31) mmol/L Anion Gap 8 (3-11) POC Anion Gap (16-25) mmol/L POC BUN (7-18) mg/dl BUN 13 (6-23) mg/dl Creatinine 0.68 (0.6-1.4) mg/dl POC Creatinine (0.6-1.3) mg/dl Est Cr Clr Drug Dosing 122.7 ml/min Est GFR ( Amer) 115.3 ml/min Est GFR (Non-Af Amer) 99.5 ml/min BUN/Creatinine Ratio 19.1 (10-20) Glucose 131 H (70-99(Fasting)) mg/dl POC Glucose (other) (70-99) mg/dl Osmolality (280-300) mOsm/kg Calcium 9.5 (8.5-10.1) mg/dl POC Ioniz Calcium David (1.12-1.32) mmol/l Magnesium 2.1 (1.7-2.4) mg/dl Total Bilirubin 1.2 H (0.2-1.0) mg/dl Direct Bilirubin (0-0.2) mg/dl AST 148 H (13-39) U/L ALT 69 H (7-52) U/L Alkaline Phosphatase 73 (34-104) U/L Ammonia (18-72) umol/L Troponin I High Sens (0-20) pg/ml Total Protein 7.7 (6.0-8.3) gm/dl Albumin 4.1 (3.4-5.0) gm/dl Globulin 3.6 (2.5-4.0) gm/dl Albumin/Globulin Ratio 1.1 (0.9-2) Lipase (11-82) U/L Vitamin B1 Vitamin B12 1133 H (180-914) pg/ml TSH (0.300-4.500) uIu/ml Thyroxine (T4) 9.2 (6.09-12.23) mcg/dl Free T3 3.42 (2.3-4.2) pg/ml Urine Color Urine Appearance (Clear) Urine pH (4.5-7.5) Ur Specific [place] (1.000-1.030) Urine Protein (Negative) Urine Glucose (UA) (Negative) Urine Ketones (Negative) Urine Blood (Negative) Urine Nitrite (Negative) Urine Bilirubin (Negative) Urine Urobilinogen (Negative) Ur Leukocyte Esterase (Negative) Urine Osmolality (500-800) mOsm/kg Ur Random Sodium mmol/L Nasal Screen MRSA (PCR) (Negative) SARS-CoV-2, RNA, NAAT (NEGATIVE) 02/11/22 02/10/22 02/10/22 Range/Units 00:30 23:22 23:15 WBC (4.8-10.8) K/ul RBC (4.63-6.08) M/uL Hgb (14.0-18.0) g/dl POC Hgb 13.6 L (14.0-18.0) g/dl Hct (40.1-51.0) % POC Hct 40 L (42-52) % MCV (80.0-100.0) fL MCH (25.0-34.0) pg MCHC (32.0-36.0) g/dL RDW Std Deviation (36.4-46.3) fL RDW Coeff of Olivia (11.5-14.5) % Plt Count (130-400) K/uL MPV (9.4-12.4) fL Immature Gran % (Auto) % Neut % (Auto) % Lymph % (Auto) % Esmer[place]da % (Auto) % Eos % (Auto) % Baso % (Auto) % Neut # (Auto) (1.4-6.5) K/uL Lymph # (Auto) (1.2-3.4) K/uL Esmeralda # (Auto) (0.24-0.82) K/uL Eos # (Auto) (0-0.50) K/uL Baso # (Auto) (0-0.2) K/uL Immature Gran # (Auto) (0.00-0.02) K/uL Platelet Estimate (Normal) POC Sodium 123 L (135-144) mmol/L Sodium (136-145) mmol/L POC Potassium 3.1 L (3.3-5.0) mmol/L Potassium (3.5-5.1) mmol/L POC Chloride 86 L (101-112) mmol/L Chloride (98-107) mmol/L Carbon Dioxide (21-32) mmol/L POC Total CO2 24 (24-31) mmol/L Anion Gap (3-11) POC Anion Gap 18.0 (16-25) mmol/L POC BUN 16 (7-18) mg/dl BUN (6-23) mg/dl Creatinine (0.6-1.4) mg/dl POC Creatinine 0.8 (0.6-1.3) mg/dl Est Cr Clr Drug Dosing ml/min Est GFR ( Amer) ml/min Est GFR (Non-Af Amer) ml/min BUN/Creatinine Ratio (10-20) Glucose (70-99(Fasting)) mg/dl POC Glucose (other) 147 H (70-99) mg/dl Osmolality (280-300) mOsm/kg Calcium (8.5-10.1) mg/dl POC Ioniz Calcium David 1.13 (1.12-1.32) mmol/l Magnesium (1.7-2.4) mg/dl Total Bilirubin (0.2-1.0) mg/dl Direct Bilirubin (0-0.2) mg/dl AST (13-39) U/L ALT (7-52) U/L Alkaline Phosphatase (34-104) U/L Ammonia (18-72) umol/L Troponin I High Sens (0-20) pg/ml Total Protein (6.0-8.3) gm/dl Albumin (3.4-5.0) gm/dl Globulin (2.5-4.0) gm/dl Albumin/Globulin Ratio (0.9-2) Lipase (11-82) U/L Vitamin B1 Vitamin B12 (180-914) pg/ml TSH 1.870 (0.300-4.500) uIu/ml Thyroxine (T4) (6.09-12.23) mcg/dl Free T3 (2.3-4.2) pg/ml Urine Color Urine Appearance (Clear) Urine pH (4.5-7.5) Ur Specific [place] (1.000-1.030) Urine Protein (Negative) Urine Glucose (UA) (Negative) Urine Ketones (Negative) Urine Blood (Negative) Urine Nitrite (Negative) Urine Bilirubin (Negative) Urine Urobilinogen (Negative) Ur Leukocyte Esterase (Negative) Urine Osmolality (500-800) mOsm/kg Ur Random Sodium mmol/L Nasal Screen MRSA (PCR) (Negative) SARS-CoV-2, RNA, NAAT NEGATIVE (NEGATIVE) 02/10/22 02/10/22 02/10/22 Range/Units 23:15 23:15 23:15 WBC 5.96 (4.8-10.8) K/ul RBC 4.46 L (4.63-6.08) M/uL Hgb 13.4 L (14.0-18.0) g/dl POC Hgb (14.0-18.0) g/dl Hct 37.1 L (40.1-51.0) % POC Hct (42-52) % MCV 83.2 (80.0-100.0) fL MCH 30.0 (25.0-34.0) pg MCHC 36.1 H (32.0-36.0) g/dL RDW Std Deviation 42.1 (36.4-46.3) fL RDW Coeff of Olivia 13.9 (11.5-14.5) % Plt Count 100 L (130-400) K/uL MPV 10.6 (9.4-12.4) fL Immature Gran % (Auto) 0.3 % Neut % (Auto) 68.7 % Lymph % (Auto) 19.5 % Esmeralda % (Auto) 9.9 % Eos % (Auto) 1.3 % Baso % (Auto) 0.3 % Neut # (Auto) 4.09 (1.4-6.5) K/uL Lymph # (Auto) 1.16 L (1.2-3.4) K/uL Esmeralda # (Auto) 0.59 (0.24-0.82) K/uL Eos # (Auto) 0.08 (0-0.50) K/uL Baso # (Auto) 0.02 (0-0.2) K/uL Immature Gran # (Auto) 0.02 (0.00-0.02) K/uL Platelet Estimate Decreased L (Normal) POC Sodium (135-144) mmol/L Sodium 122 L (136-145) mmol/L POC Potassium (3.3-5.0) mmol/L Potassium 2.8 L (3.5-5.1) mmol/L POC Chloride (101-112) mmol/L Chloride 87 L (98-107) mmol/L Carbon Dioxide 26 (21-32) mmol/L POC Total CO2 (24-31) mmol/L Anion Gap 9 (3-11) POC Anion Gap (16-25) mmol/L POC BUN (7-18) mg/dl BUN 17 (6-23) mg/dl Creatinine 0.79 (0.6-1.4) mg/dl POC Creatinine (0.6-1.3) mg/dl Est Cr Clr Drug Dosing 105.6 ml/min Est GFR ( Amer) 108.5 ml/min Est GFR (Non-Af Amer) 93.6 ml/min BUN/Creatinine Ratio 21.5 H (10-20) Glucose 140 H (70-99(Fasting)) mg/dl POC Glucose (other) (70-99) mg/dl Osmolality 259 L (280-300) mOsm/kg Calcium 9.1 (8.5-10.1) mg/dl POC Ioniz Calcium David (1.12-1.32) mmol/l Magnesium 1.6 L (1.7-2.4) mg/dl Total Bilirubin 1.3 H (0.2-1.0) mg/dl Direct Bilirubin 0.3 H (0-0.2) mg/dl AST 171 H (13-39) U/L ALT 73 H (7-52) U/L Alkaline Phosphatase 89 (34-104) U/L Ammonia (18-72) umol/L Troponin I High Sens 8.9 (0-20) pg/ml Total Protein 8.0 (6.0-8.3) gm/dl Albumin 4.4 (3.4-5.0) gm/dl Globulin (2.5-4.0) gm/dl Albumin/Globulin Ratio (0.9-2) Lipase 39 (11-82) U/L Vitamin B1 Vitamin B12 (180-914) pg/ml TSH (0.300-4.500) uIu/ml Thyroxine (T4) (6.09-12.23) mcg/dl Free T3 (2.3-4.2) pg/ml Urine Color Urine Appearance (Clear) Urine pH (4.5-7.5) Ur Specific [place] (1.000-1.030) Urine Protein (Negative) Urine Glucose (UA) (Negative) Urine Ketones (Negative) Urine Blood (Negative) Urine Nitrite (Negative) Urine Bilirubin (Negative) Urine Urobilinogen (Negative) Ur Leukocyte Esterase (Negative) Urine Osmolality (500-800) mOsm/kg Ur Random Sodium mmol/L Nasal Screen MRSA (PCR) (Negative) SARS-CoV-2, RNA, NAAT (NEGATIVE)
[2022-02-11 17:05] LABS: Albumin Level 4.3 gm/dl (3.4-5.0); BUN Creatinine Ratio 15.3 (10-20); Calcium 9.2 mg/dl (8.5-10.1); Creatinine Clr Calc Pharmacy 115.9 ml/min; Est GFR (African American) 112.7 ml/min; Est GFR (Non-African American) 97.2 ml/min; Phosphorus 2.6 mg/dl (2.5-4.9); Potassium 4.2 mmol/L (3.5-5.1)
[2022-02-11] MEDS ORDERED: MELATONIN 3 MG TAB PO PRN (18:04)
[2022-02-11] MEDS ORDERED: SODIUM CHLORIDE 1 GM TABLET PO ONE (18:45)
[2022-02-11] MEDS: THIAMINE HCL 200 MG in SODIUM CHLORIDE 0.9% 50 ML IV SCH (19:16)
[2022-02-11] MEDS: ATORVASTATIN 40 MG TAB PO SCH (20:03)
[2022-02-11] MEDS ORDERED: levETIRAcetam 500 MG TAB PO SCH (21:00)
[2022-02-12] MEDS: ACETAMINOPHEN 325 MG TAB PO PRN ×3 (00:37→23:05)
[2022-02-12] MEDS: LORazepam 1 MG in SYRINGE 0 ML IV PRN (02:53)
--- NOTE | 2022-02-12 05:44 | Electrocardiogram Report ---
Test Reason : Blood Pressure : / mmHG Vent. Rate : 072 BPM Atrial Rate : 072 BPM P-R Int : 172 ms QRS Dur : 102 ms QT Int : 468 ms P-R-T Axes : 041 -48 016 degrees QTc Int : 512 ms Normal sinus rhythm Incomplete right bundle branch block Left anterior fascicular block Minimal voltage criteria for LVH, may be normal variant Prolonged QT Abnormal ECG When compared with ECG of 07-DEC-2018 09:14, No significant change was found Confirmed by Jorge Caban ([id number]) on 02/12/2022 5:44:09 AM Referred By: Dionna Le Confirmed By:Jorge Caban
--- NOTE | 2022-02-12 06:08 | Electrocardiogram Report ---
Test Reason : Blood Pressure : / mmHG Vent. Rate : 068 BPM Atrial Rate : 068 BPM P-R Int : 172 ms QRS Dur : 096 ms QT Int : 482 ms P-R-T Axes : 068 -39 009 degrees QTc Int : 512 ms Normal sinus rhythm Left axis deviation Prolonged QT Abnormal ECG When compared with ECG of 10-FEB-2022 22:46, (unconfirmed) No significant change was found Confirmed by Jorge Caban ([id number]) on 02/12/2022 6:08:06 AM Referred By: Dionna Le Confirmed By:Jorge Caban
[2022-02-12] MEDS: ONDANSETRON INJ 2 MG/ML 2 ML VIAL IV PRN (07:09)
--- NOTE | 2022-02-12 07:46 | Hospitalist Progress Note ---
Date of Service February 12, 2022 Assessment & Plan (1) Metabolic encephalopathy: Plan: Patient presented to ER from the [facility] after being found down and with emesis and altered mental status, with electrolyte derangements Given ativan on admit Na 122 (133 on d/c to [facility] 02/06), K 2.8, Mag 1.6 No EKG on admit, decision to move to telemetry for closer monitoring this morning, donavan given reports emesis (KUB checked, no obstruction). Has been NSR w/ ectopy (has tremor, baseline and chronic per patient and reported as heriditary) CT head negative on admit but did show 10 mm ovoid nodule in the suprasellar region located adjacent to the tip of the basilar. This may represent aneurysm, and correlation with a CT angiogram of the brain is recommended for further assessment. CTA for further eval : IMPRESSION: 1. No acute intracranial hemorrhage, evidence of acute territorial infarction, or other acute intracranial disease process. 2. No occlusion, hemodynamically significant stenosis, aneurysm, dissection, or arteriovenous malformation in the major intracranial arteries. In particular, no basilar tip aneurysm is seen, the radiodensity in the anterior shiloh is not vascular in character. Checked additional labs: Ammonia 35 B12 1133 B1 pending -- will start empic thiamine TSH wnl/Ft4/t3 wnl (had been elevated to 5.074 02/06, ?acute from recent lithium use earlier in the month?) Keppra ordered -- however, appears this has been recently started at [facility] with klonopin in place of temazepam Did give dose IV initially given emesis this morning. KUB w/o obstruction. DISCONTINUE further keppra given can cause agitation and acute hyponatremia Of note, discussed with his on phone this evening who was unaware patient was not at the [facility] until this morning, and states patient had been hospitalized in 2019 after stressful trip to [facility]/ episode of Britta and was transferred to [facility] inpatient psych for treatment She states he has had issues with this when they were younger ( 43 years) but had not had an issue prior to that for about 10 years and was actually quite stable on regimen as follows: * QAM : Topamax 100mg, Gabapentin 500mg, atorvastatin 30mg, chlorthalidone 25mg, metformin 500mg (pre-DM), meloxicam 15mg (for trigger finger) * Noon: MVI, Vitamin D 3, B complex * 5pm: gabapentin 600mg * HS: Topamax 100mg, gabapentin 600mg, depakote 500mg, seroquel 200mg, mag oxide 500mg, melatonin 15-18mg, and chloropromazine 20-25mg as needed for emergency if not sleeping She notes issues w/ insomnia and had not been sleeping/decline starting over the summer and they were working with MD at [facility] to help since August She notes that they started him on ambien, but that they then changed to Temazepam 15mg which was not really helpful per her account. They then decided to add trazodone for sleep/anxiety/mood In September/October 2021 was seen by heme/onc (denies ca diagnosis, but mentions something having to do with his liver but not entirely sure) and was started on allopurinol 100mg daily along with biotin as he was having issues with his nails and biting them. PCP is Dr Morgan at [facility] About 2 weeks ago, they were going to start [place] and taper him off the depakote but decided to start the lithium and continue that and depakote. Had been sleeping 1-2 hours at night, wetting the bed. ?DI from the lithium She did note she returned a 400$ saw the past month, likely purchased during period of britta as well but states he really has been not quite right for a while She notes that prior Saturday he did appear more like himself but then declined and ultimately was getting very nasty with her verbally before going to the [facility] She also mentions that she herself is on ativan prn anxiety related to her husbands condition and that she has mentioned it to multiple providers but that they did not think that was warranted Discussed with Na level could be multifactorial/increased free wate r/medications w/ psych meds/chlorthalidone use Consultation with Nephrology - urine osm 141, clinical hx polydipsia complicated by chlorthalidone use. Stopped IVF, continue fluid restriction, should improve by itself with such per discussion with Dr Bernal - electrolyte replacement -- K resolved on repeat, mag as well -Repeat Na this afternoon 124, mentating. K 4.2, Mag 2.1. TSH wnl Seizure precautions in place given hyponatremia -- per patient, confirmed with , no known seizure activity Continued inpatient stay, 1:1 for safety Psych consulted -- appreciate recs/assistance Ativan available prn, melatonin added for sleep. Consider adding trazodone as started over summer but will do less for now to prevent further clouding of clinical picture 02/12 --> Given 1gm PO NaCl last evening by Nephrology, Na125 on AM labs. Scheduled 1gm NaCl BID per discussion with Dr Bernal. Na 126 this afternoon. Repeat urine osm ordered but not yet obtained Does appear to be alert and oriented to person/knows in [place]/january 2022, but with delusions. Reports having no heart, that he feels better than he should. Reported poor sleep Did have ativan 3 doses, available prn Was scheduled Liver US and Abd US for ascites given hx cirrhosis, likely from Depakote/psych med use. NO significant ascites or acute sonu. Does have some mild CBD dilation. LFTs improving Suspect combination of recent [place] use started earlier this month per with his depakote, recent Keppra (discontinued), and chlorthalidone use worsened hyponatremia which he likely has at baseline given prior admit 2018 w/ hyponatremia Psych following for continued assessments, but remains off prior psych meds with exception of Ativan (melatonin added for sleep as well) Upon visiting nursing unit this afternoon, patient resting/sleeping soundly after US, hopefully will allow for less britta given issues with insomnia at baseline. May benefit from as needed benzos w/ ativan for insomnia/bipolar britta but will defer to psych Monitor repeat labs/observe mental status (2) Acute psychosis: Plan: as above, multifactorial still with delusions, poor sleep reported. Ativan prn, was actually sleeping this afternoon. Monitor/psych assistance appreciated (3) Hyponatremia: Plan: 122 on admit, given IVF in ER, no repeat ordered -- asked to draw this morning, lower at 121 No evidence for seizure, denies personal history of such but placed on seizure precautions TSH wnl on repeat -- see above Urine Na 42, urine osm 141, serum osm 259 Nephrology was consulted as possible need for 3% nacl, however decision to continue to hold chlorthalidone, fluid restrict, should improve on its own Na 125-->126, scheduled 1gm PO NaCL BID per discussion with nephrology, monitor repeat labs/urine osm Appreciate continued assistance w/ nephrology Monitor (4) Insomnia: Plan: chronic issue, likely causing acute britta/psychosis reports sleeping 1-2 hours at night at a time Recently started temazepam outpatient but without much benefit, also had added trazodone which hasn't helped much either. melatonin HS had been tried in past as well inquiring about ativan -- is available prn for any agitation/psychosis for time being and has been utilized of note they did give some klonopin w/ keppra at [facility] but patient reported continued poor sleep Is actually resting this afternoon, monitor (5) Bipolar 1 disorder: Plan: hx of such -- see above regarding history from under #1 (6) Electrolyte abnormality: Plan: Na 122, multifactorial as above--> fluid restriction, holding chlorthalidone, Na 124 on repeat K 2.8 - 60meq ordered for this morning, did have some emesis -- ordered K Riders -- repeat K 4.2 this afternoon. 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 Was present on prior imaging from 2019. CTA head w/o acute finding (8) H/O: HTN (hypertension): Plan: Per on chlorthalidone for years In system, did have slightly low Na back in 2019, probably not best choice for HTN for this patient given risk for hyponatremia to begin with along with other electrolyte abnormalities Monitor Can add prn if needed (9) HLD (hyperlipidemia): Plan: On atorvastain 40mg daily per (10) Pre-diabetes: Plan: per on 500mg metformin daily given polydipsia, however thirst likely from low Na, will check A1c w/ AM labs -- 5.9 (11) Polydipsia: Plan: multifactorial, plan as above (12) Elevated LFTs: Plan: elevated on admit, higher than prior ?medication related No abdominal pain Did have mention probable hepatic cirrhosis with hepatosplenomegaly on CTAP from 2019 Ammonia wnl B1 pending, denied any hx etoh, but has cirrhosis likely from medications US liver/US abd for ascites unremarkable Did d/c zofran given prolonged QTC on EKG Agreed to be put on monitor for this afternoon as previously ripped this off Given such, appreciate psych input regarding medications Plan continued inpatient stay Continued off psych meds x ativan prn Continue holding diuretics Na slowly improving, started NaCl 1gm PO BID, monitor labs on repeat [facility] at d/c once medically stable planned Psych got release of record from [facility] signed today -- appreciate continued assistance Admission and Anticipated Discharge Date Admission Date: February 11, 2022 Supervising Physician Co-Signing Physician Notes Attending Attestation - Chart reviewed, care plan d/w CLAUDIA Power. I agree w/ the larson components of her documentation. Bryant Thomas MD Subjective eval this morning, reports he is doing "too well". not much sleep, on/off, had some emesis this morning reports moving his bowels just fine, abdomen is softer discussed needing to get his labs improved and assistance by psych team regarding resuming certain medications and release from [employer] to be filled out today to help coordinate care. he notes past issue w/ hospitalization was with [place] trip. discussed keppra and prior hx cirrhosis, he notes from [facility], and would not like to use keppra in future and that we are holding certain medications currently while working on getting him better but also using ativan as needed. States 2021, in [place], january. does reports occasional palpitation states he does not have a heart. Review of Systems Review of Systems: All systems reviewed & are unremarkable except as noted in HPI & below Physical Exam Physical Exam: General: WD/WN male sitting up in bed, 1:1 at bedside, goes by Lakesha Jones or Pawan. Knows he was at the [facility], year 2021, january, thought date was February 08 though day prior HEENT: head normocephalic, atraumatic, mmm, trachea midline Resp: CTAB, no w/c/r, on room air CV: RRR, no m/r/g, does have some trace LE edema, no significant pitting, no calf edema, pulses palpable GI: +BS, soft/NT : no castillo MSK/Neuro: no focal deficit, no slurred speech/facial droop, resting tremor (reported chronic, not as noticable on exam today) Psych: AO to person/place/month but not date, tangential speech at times, pressured at times, delusional, reports not having a heart, but aware of prior hospitalization for inpatient psych and mentions last was after trip to [email or web address], reported poor sleep overnight Results & Data Results & Data ([facility]) Vital Signs (Past 12 Hours) Vital Signs Temp Pulse Resp BP Pulse Ox O2 Del Method 02/12/22 07:01 36.6 C 94 H 18 148/83 H 94 Room Air 02/11/22 22:27 36.6 C 69 16 150/90 H 97 Room Air Laboratory Results 02/12/22 02/12/22 02/12/22 Range/Units 07:56 07:56 07:56 WBC (4.8-10.8) K/ul RBC (4.63-6.08) M/uL Hgb (14.0-18.0) g/dl Hct (40.1-51.0) % MCV (80.0-100.0) fL MCH (25.0-34.0) pg MCHC (32.0-36.0) g/dL RDW Std Deviation (36.4-46.3) fL RDW Coeff of Olivia (11.5-14.5) % Plt Count (130-400) K/uL MPV (9.4-12.4) fL PT 11.9 (9.0-12.0) Seconds INR 1.1 (0.9-1.1) Sodium 125 L (136-145) mmol/L Potassium 3.9 (3.5-5.1) mmol/L Chloride 96 L (98-107) mmol/L Carbon Dioxide 21 (21-32) mmol/L Anion Gap 8 (3-11) BUN 9 (6-23) mg/dl Creatinine 0.76 (0.6-1.4) mg/dl Est Cr Clr Drug Dosing 109.8 ml/min Est GFR ( Amer) 110.2 ml/min Est GFR (Non-Af Amer) 95.1 ml/min BUN/Creatinine Ratio 11.8 (10-20) Glucose 138 H (70-99(Fasting)) mg/dl Estimat Average Glucose Pending Hemoglobin A1c Pending Osmolality (280-300) mOsm/kg Calcium 9.0 (8.5-10.1) mg/dl Phosphorus 2.9 (2.5-4.9) mg/dl Magnesium 1.7 (1.7-2.4) mg/dl Total Bilirubin 1.1 H (0.2-1.0) mg/dl Direct Bilirubin 0.3 H (0-0.2) mg/dl AST 132 H (13-39) U/L ALT 74 H (7-52) U/L Alkaline Phosphatase 92 (34-104) U/L Ammonia (18-72) umol/L Total Protein 8.0 (6.0-8.3) gm/dl Albumin 4.2 (3.4-5.0) gm/dl Globulin (2.5-4.0) gm/dl Albumin/Globulin Ratio (0.9-2) Vitamin B1 Vitamin B12 (180-914) pg/ml Thyroxine (T4) (6.09-12.23) mcg/dl Free T3 (2.3-4.2) pg/ml Urine Color Urine Appearance (Clear) Urine pH (4.5-7.5) Ur Specific [place] (1.000-1.030) Urine Protein (Negative) Urine Glucose (UA) (Negative) Urine Ketones (Negative) Urine Blood (Negative) Urine Nitrite (Negative) Urine Bilirubin (Negative) Urine Urobilinogen (Negative) Ur Leukocyte Esterase (Negative) Urine Osmolality (500-800) mOsm/kg Ur Random Sodium mmol/L Nasal Screen MRSA (PCR) (Negative) 02/12/22 02/11/22 02/11/22 Range/Units 07:56 16:24 11:12 WBC 7.55 (4.8-10.8) K/ul RBC 4.46 L (4.63-6.08) M/uL Hgb 13.4 L (14.0-18.0) g/dl Hct 36.9 L (40.1-51.0) % MCV 82.7 (80.0-100.0) fL MCH 30.0 (25.0-34.0) pg MCHC 36.3 H (32.0-36.0) g/dL RDW Std Deviation 41.1 (36.4-46.3) fL RDW Coeff of Olivia 13.8 (11.5-14.5) % Plt Count 148 (130-400) K/uL MPV 9.8 (9.4-12.4) fL PT (9.0-12.0) Seconds INR (0.9-1.1) Sodium 124 L (136-145) mmol/L Potassium 4.2 D (3.5-5.1) mmol/L Chloride 93 L (98-107) mmol/L Carbon Dioxide 24 (21-32) mmol/L Anion Gap 7 (3-11) BUN 11 (6-23) mg/dl Creatinine 0.72 (0.6-1.4) mg/dl Est Cr Clr Drug Dosing 115.9 ml/min Est GFR ( Amer) 112.7 ml/min Est GFR (Non-Af Amer) 97.2 ml/min BUN/Creatinine Ratio 15.3 (10-20) Glucose 150 H (70-99(Fasting)) mg/dl Estimat Average Glucose Hemoglobin A1c Osmolality (280-300) mOsm/kg Calcium 9.2 (8.5-10.1) mg/dl Phosphorus 2.6 (2.5-4.9) mg/dl Magnesium (1.7-2.4) mg/dl Total Bilirubin (0.2-1.0) mg/dl Direct Bilirubin (0-0.2) mg/dl AST (13-39) U/L ALT (7-52) U/L Alkaline Phosphatase (34-104) U/L Ammonia (18-72) umol/L Total Protein (6.0-8.3) gm/dl Albumin 4.3 (3.4-5.0) gm/dl Globulin (2.5-4.0) gm/dl Albumin/Globulin Ratio (0.9-2) Vitamin B1 Vitamin B12 (180-914) pg/ml Thyroxine (T4) (6.09-12.23) mcg/dl Free T3 (2.3-4.2) pg/ml Urine Color Urine Appearance (Clear) Urine pH (4.5-7.5) Ur Specific [place] (1.000-1.030) Urine Protein (Negative) Urine Glucose (UA) (Negative) Urine Ketones (Negative) Urine Blood (Negative) Urine Nitrite (Negative) Urine Bilirubin (Negative) Urine Urobilinogen (Negative) Ur Leukocyte Esterase (Negative) Urine Osmolality 141 L (500-800) mOsm/kg Ur Random Sodium mmol/L Nasal Screen MRSA (PCR) (Negative) 02/11/22 02/11/22 02/11/22 Range/Units 11:12 11:12 11:01 WBC (4.8-10.8) K/ul RBC (4.63-6.08) M/uL Hgb (14.0-18.0) g/dl Hct (40.1-51.0) % MCV (80.0-100.0) fL MCH (25.0-34.0) pg MCHC (32.0-36.0) g/dL RDW Std Deviation (36.4-46.3) fL RDW Coeff of Olivia (11.5-14.5) % Plt Count (130-400) K/uL MPV (9.4-12.4) fL PT (9.0-12.0) Seconds INR (0.9-1.1) Sodium (136-145) mmol/L Potassium (3.5-5.1) mmol/L Chloride (98-107) mmol/L Carbon Dioxide (21-32) mmol/L Anion Gap (3-11) BUN (6-23) mg/dl Creatinine (0.6-1.4) mg/dl Est Cr Clr Drug Dosing ml/min Est GFR ( Amer) ml/min Est GFR (Non-Af Amer) ml/min BUN/Creatinine Ratio (10-20) Glucose (70-99(Fasting)) mg/dl Estimat Average Glucose Hemoglobin A1c Osmolality (280-300) mOsm/kg Calcium (8.5-10.1) mg/dl Phosphorus (2.5-4.9) mg/dl Magnesium (1.7-2.4) mg/dl Total Bilirubin (0.2-1.0) mg/dl Direct Bilirubin (0-0.2) mg/dl AST (13-39) U/L ALT (7-52) U/L Alkaline Phosphatase (34-104) U/L Ammonia (18-72) umol/L Total Protein (6.0-8.3) gm/dl Albumin (3.4-5.0) gm/dl Globulin (2.5-4.0) gm/dl Albumin/Globulin Ratio (0.9-2) Vitamin B1 Vitamin B12 (180-914) pg/ml Thyroxine (T4) (6.09-12.23) mcg/dl Free T3 (2.3-4.2) pg/ml Urine Color Yellow Urine Appearance Clear (Clear) Urine pH 8.0 H (4.5-7.5) Ur Specific [place] 1.004 (1.000-1.030) Urine Protein Negative (Negative) Urine Glucose (UA) Negative (Negative) Urine Ketones Negative (Negative) Urine Blood Negative (Negative) Urine Nitrite Negative (Negative) Urine Bilirubin Negative (Negative) Urine Urobilinogen Negative (Negative) Ur Leukocyte Esterase Negative (Negative) Urine Osmolality (500-800) mOsm/kg Ur Random Sodium 42 mmol/L Nasal Screen MRSA (PCR) Negative (Negative) 02/11/22 02/11/22 02/11/22 Range/Units 10:04 10:03 10:03 WBC (4.8-10.8) K/ul RBC (4.63-6.08) M/uL Hgb (14.0-18.0) g/dl Hct (40.1-51.0) % MCV (80.0-100.0) fL MCH (25.0-34.0) pg MCHC (32.0-36.0) g/dL RDW Std Deviation (36.4-46.3) fL RDW Coeff of Olivia (11.5-14.5) % Plt Count (130-400) K/uL MPV (9.4-12.4) fL PT (9.0-12.0) Seconds INR (0.9-1.1) Sodium 121 L (136-145) mmol/L Potassium 3.3 L (3.5-5.1) mmol/L Chloride 88 L (98-107) mmol/L Carbon Dioxide 25 (21-32) mmol/L Anion Gap 8 (3-11) BUN 13 (6-23) mg/dl Creatinine 0.68 (0.6-1.4) mg/dl Est Cr Clr Drug Dosing 122.7 ml/min Est GFR ( Amer) 115.3 ml/min Est GFR (Non-Af Amer) 99.5 ml/min BUN/Creatinine Ratio 19.1 (10-20) Glucose 131 H (70-99(Fasting)) mg/dl Estimat Average Glucose Hemoglobin A1c Osmolality (280-300) mOsm/kg Calcium 9.5 (8.5-10.1) mg/dl Phosphorus (2.5-4.9) mg/dl Magnesium 2.1 (1.7-2.4) mg/dl Total Bilirubin 1.2 H (0.2-1.0) mg/dl Direct Bilirubin (0-0.2) mg/dl AST 148 H (13-39) U/L ALT 69 H (7-52) U/L Alkaline Phosphatase 73 (34-104) U/L Ammonia 35.0 (18-72) umol/L Total Protein 7.7 (6.0-8.3) gm/dl Albumin 4.1 (3.4-5.0) gm/dl Globulin 3.6 (2.5-4.0) gm/dl Albumin/Globulin Ratio 1.1 (0.9-2) Vitamin B1 Pending Vitamin B12 (180-914) pg/ml Thyroxine (T4) (6.09-12.23) mcg/dl Free T3 (2.3-4.2) pg/ml Urine Color Urine Appearance (Clear) Urine pH (4.5-7.5) Ur Specific [place] (1.000-1.030) Urine Protein (Negative) Urine Glucose (UA) (Negative) Urine Ketones (Negative) Urine Blood (Negative) Urine Nitrite (Negative) Urine Bilirubin (Negative) Urine Urobilinogen (Negative) Ur Leukocyte Esterase (Negative) Urine Osmolality (500-800) mOsm/kg Ur Random Sodium mmol/L Nasal Screen MRSA (PCR) (Negative) 02/11/22 02/11/22 02/10/22 Range/Units 10:03 10:02 23:15 WBC 6.54 (4.8-10.8) K/ul RBC 4.31 L (4.63-6.08) M/uL Hgb 12.8 L (14.0-18.0) g/dl Hct 36.0 L (40.1-51.0) % MCV 83.5 (80.0-100.0) fL MCH 29.7 (25.0-34.0) pg MCHC 35.6 (32.0-36.0) g/dL RDW Std Deviation 42.2 (36.4-46.3) fL RDW Coeff of Olivia 13.8 (11.5-14.5) % Plt Count 113 L (130-400) K/uL MPV 9.5 (9.4-12.4) fL PT (9.0-12.0) Seconds INR (0.9-1.1) Sodium (136-145) mmol/L Potassium (3.5-5.1) mmol/L Chloride (98-107) mmol/L Carbon Dioxide (21-32) mmol/L Anion Gap (3-11) BUN (6-23) mg/dl Creatinine (0.6-1.4) mg/dl Est Cr Clr Drug Dosing ml/min Est GFR ( Amer) ml/min Est GFR (Non-Af Amer) ml/min BUN/Creatinine Ratio (10-20) Glucose (70-99(Fasting)) mg/dl Estimat Average Glucose Hemoglobin A1c Osmolality 259 L (280-300) mOsm/kg Calcium (8.5-10.1) mg/dl Phosphorus (2.5-4.9) mg/dl Magnesium (1.7-2.4) mg/dl Total Bilirubin (0.2-1.0) mg/dl Direct Bilirubin (0-0.2) mg/dl AST (13-39) U/L ALT (7-52) U/L Alkaline Phosphatase (34-104) U/L Ammonia (18-72) umol/L Total Protein (6.0-8.3) gm/dl Albumin (3.4-5.0) gm/dl Globulin (2.5-4.0) gm/dl Albumin/Globulin Ratio (0.9-2) Vitamin B1 Vitamin B12 1133 H (180-914) pg/ml Thyroxine (T4) 9.2 (6.09-12.23) mcg/dl Free T3 3.42 (2.3-4.2) pg/ml Urine Color Urine Appearance (Clear) Urine pH (4.5-7.5) Ur Specific [place] (1.000-1.030) Urine Protein (Negative) Urine Glucose (UA) (Negative) Urine Ketones (Negative) Urine Blood (Negative) Urine Nitrite (Negative) Urine Bilirubin (Negative) Urine Urobilinogen (Negative) Ur Leukocyte Esterase (Negative) Urine Osmolality (500-800) mOsm/kg Ur Random Sodium mmol/L Nasal Screen MRSA (PCR) (Negative) Diagnostic Findings Abdomen Ultrasound 02/12/22 09:15 ULTRASOUND ASCITES CHECK CLINICAL HISTORY: Cirrhosis. COMPARISON STUDY: Abdominal CT dated 12/07/2018 FINDINGS: Real-time grayscale sonography of all 4 quadrants of the abdomen is performed to assess for abdominal ascites. No abdominal ascites is seen at this time. IMPRESSION: There is no sonographic evidence of abdominal ascites. Electronically signed by: Judah Abebe M.D. 02/12/2022 10:21 AM Liver Ultrasound 02/12/22 09:15 US liver CLINICAL HISTORY: elevated LFTs, hx cirrhotic liver COMPARISON STUDY: CT of the abdomen and pelvis December 07, 2018. FINDINGS: There is slight nodularity of the liver surface. No hepatic lesions are identified. There is no biliary ductal dilatation. The common bile duct measures 5 mm in caliber. The pancreatic body is normal. Head and tail are obscured. The gallbladder is normal. There are no gallstones. There is no right hydronephrosis. A few right renal cysts measure up to 1.2 cm. IMPRESSION: 1. No gallstones or biliary ductal dilatation. 2. Nodularity of the liver surface suggestive of cirrhosis. No hepatic lesions identified. ACT 112: Negative or not required by law. Electronically signed by: Fernando Bah M.D. 02/12/2022 10:18 AM PG Care Time/CCT Total # of Minutes Spent Total Time Spent with Patient: Total time spent is greater than 50% in coordination of care (as documented) at patient's floor/unit and/or counseling patient: Coding Level of Care Code 65900 Subseq Hosp Care Lvl 3 Diagnoses Metabolic encephalopathy G93.41 Acute psychosis F23 Hyponatremia E87.1 Insomnia G47.00 Bipolar 1 disorder F31.9 Electrolyte abnormality E87.[address] scan R93.89 H/O: HTN (hypertension) Z86.79 HLD (hyperlipidemia) E78.5 Pre-diabetes R73.03 Polydipsia R63.1 Elevated LFTs R79.89
[2022-02-12] MEDS: lisinopril 10 MG TAB PO SCH (07:55)
[2022-02-12] MEDS: allopurinoL 100 MG TAB PO SCH (07:56)
[2022-02-12] MEDS: DOCUSATE SODIUM/SENNA 50/8.6MG TAB PO SCH (08:17)
[2022-02-12] MEDS: THIAMINE HCL 200 MG in SODIUM CHLORIDE 0.9% 50 ML IV SCH (08:17)
[2022-02-12 08:29] LABS: Hematocrit (blood only) 36.9 % (40.1-51.0); Hemoglobin 13.4 g/dl (14.0-18.0); Mean Corpuscular Hgb Conc 36.3 g/dL (32.0-36.0); Mean Corpuscular Volume 82.7 fL (80.0-100.0); Mean Platelet Volume 9.8 fL (9.4-12.4); Platelet Count 148 K/uL (130-400); RDW Coefficient of Variation 13.8 % (11.5-14.5); RDW Standard Deviation 41.1 fL (36.4-46.3); Red Blood Count 4.46 M/uL (4.63-6.08); White Blood Count 7.55 K/ul (4.8-10.8)
[2022-02-12 08:48] LABS: INR 1.1 (0.9-1.1); Prothrombin Time 11.9 Seconds (9.0-12.0)
[2022-02-12 08:51] LABS: Albumin Level 4.2 gm/dl (3.4-5.0); BUN Creatinine Ratio 11.8 (10-20); Bilirubin Direct 0.3 mg/dl (0-0.2); Bilirubin,Total 1.1 mg/dl (0.2-1.0); Creatinine Clr Calc Pharmacy 109.8 ml/min; Est GFR (African American) 110.2 ml/min; Est GFR (Non-African American) 95.1 ml/min; Magnesium 1.7 mg/dl (1.7-2.4); Phosphorus 2.9 mg/dl (2.5-4.9); Potassium 3.9 mmol/L (3.5-5.1)
[2022-02-12] MEDS ORDERED: SODIUM CHLORIDE 1 GM TABLET PO SCH (09:30)
--- NOTE | 2022-02-12 10:04 | Nephrology Progress Note ---
Date of Service February 12, 2022 Assessment & Plan (1) Hyponatremia: Plan: Attributed to polydipsia, hypokalemia, and chlorthalidone. Continue to hold chlorthalidone. Repeat urine osmolality this AM. Euvolemic on exam. Oral NaCl 1 gram BID. Repeat serum sodium this afternoon. Document I/O's. (2) Acute psychosis: Plan: Psychiatric consultation reviewed. Psychiatric medications held. Remains on 1:1. (3) Electrolyte abnormality: Plan: Improving hypokalemia and hypomagnesemia. Dietary. Encourage nutrition. (4) Bipolar 1 disorder: Admission and Anticipated Discharge Date Admission Date: February 11, 2022 Subjective No acute events overnight. Emery was seen and evaluated while walking with his 1:1 in the hallway. He feels well and denies any acute complaints. Tolerating fluid restriction. Appetite is good. No nausea. No fluid retention or edema. Reported vomiting x 1 today. No diarrhea. Review of Systems Review of Systems: All systems reviewed & are unremarkable except as noted in HPI & below Physical Exam Constitutional: well developed; no acute distress Eyes: no scleral abnormality and no corneal abnormality ENMT: Mouth: no oral mucosal abnormality and oral mucous membranes not dry Neck: normal visual inspection and trachea midline Respiratory: normal respiratory effort Auscultation: lungs clear to auscultation bilaterally Cardiovascular: Rate/Rhythm: regular rate Heart Sounds: normal S1 and normal S2 Extremities: no edema Musculoskeletal: Extremities: no cyanosis and no clubbing Skin: + turgor decreased; no lesions Neurologic: Motor/Sensory: no tremor and no asterixis Psychiatric: Orientation: alert and cooperative Results & Data ([facility]) Vital Signs (Past 12 Hours) Vital Signs Temp Pulse Resp BP Pulse Ox O2 Del Method 02/12/22 07:01 36.6 C 94 H 18 148/83 H 94 Room Air 02/11/22 22:27 36.6 C 69 16 150/90 H 97 Room Air Laboratory Results Laboratory Results - last 24 hr 02/10/22 02/11/22 02/11/22 23:15 10:02 10:03 WBC 6.54 RBC 4.31 L Hgb 12.8 L Hct 36.0 L MCV 83.5 MCH 29.7 MCHC 35.6 RDW Std Deviation 42.2 RDW Coeff of Olivia 13.8 Plt Count 113 L MPV 9.5 PT INR Sodium Potassium Chloride Carbon Dioxide Anion Gap BUN Creatinine Est Cr Clr Drug Dosing Est GFR ( Amer) Est GFR (Non-Af Amer) BUN/Creatinine Ratio Glucose Estimat Average Glucose Hemoglobin A1c Osmolality 259 L Calcium Phosphorus Magnesium Total Bilirubin Direct Bilirubin AST ALT Alkaline Phosphatase Ammonia Total Protein Albumin Globulin Albumin/Globulin Ratio Vitamin B1 Vitamin B12 1133 H Thyroxine (T4) 9.2 Free T3 3.42 Urine Color Urine Appearance Urine pH Ur Specific [place] Urine Protein Urine Glucose (UA) Urine Ketones Urine Blood Urine Nitrite Urine Bilirubin Urine Urobilinogen Ur Leukocyte Esterase Urine Osmolality Ur Random Sodium Nasal Screen MRSA (PCR) 02/11/22 02/11/22 02/11/22 10:03 10:03 10:04 WBC RBC Hgb Hct MCV MCH MCHC RDW Std Deviation RDW Coeff of Olivia Plt Count MPV PT INR Sodium 121 L Potassium 3.3 L Chloride 88 L Carbon Dioxide 25 Anion Gap 8 BUN 13 Creatinine 0.68 Est Cr Clr Drug Dosing 122.7 Est GFR ( Amer) 115.3 Est GFR (Non-Af Amer) 99.5 BUN/Creatinine Ratio 19.1 Glucose 131 H Estimat Average Glucose Hemoglobin A1c Osmolality Calcium 9.5 Phosphorus Magnesium 2.1 Total Bilirubin 1.2 H Direct Bilirubin AST 148 H ALT 69 H Alkaline Phosphatase 73 Ammonia 35.0 Total Protein 7.7 Albumin 4.1 Globulin 3.6 Albumin/Globulin Ratio 1.1 Vitamin B1 Pending Vitamin B12 Thyroxine (T4) Free T3 Urine Color Urine Appearance Urine pH Ur Specific [place] Urine Protein Urine Glucose (UA) Urine Ketones Urine Blood Urine Nitrite Urine Bilirubin Urine Urobilinogen Ur Leukocyte Esterase Urine Osmolality Ur Random Sodium Nasal Screen MRSA (PCR) 02/11/22 02/11/22 02/11/22 11:01 11:12 11:12 WBC RBC Hgb Hct MCV MCH MCHC RDW Std Deviation RDW Coeff of Olivia Plt Count MPV PT INR Sodium Potassium Chloride Carbon Dioxide Anion Gap BUN Creatinine Est Cr Clr Drug Dosing Est GFR ( Amer) Est GFR (Non-Af Amer) BUN/Creatinine Ratio Glucose Estimat Average Glucose Hemoglobin A1c Osmolality Calcium Phosphorus Magnesium Total Bilirubin Direct Bilirubin AST ALT Alkaline Phosphatase Ammonia Total Protein Albumin Globulin Albumin/Globulin Ratio Vitamin B1 Vitamin B12 Thyroxine (T4) Free T3 Urine Color Yellow Urine Appearance Clear Urine pH 8.0 H Ur Specific [place] 1.004 Urine Protein Negative Urine Glucose (UA) Negative Urine Ketones Negative Urine Blood Negative Urine Nitrite Negative Urine Bilirubin Negative Urine Urobilinogen Negative Ur Leukocyte Esterase Negative Urine Osmolality Ur Random Sodium 42 Nasal Screen MRSA (PCR) Negative 02/11/22 02/11/22 02/12/22 11:12 16:24 07:56 WBC 7.55 RBC 4.46 L Hgb 13.4 L Hct 36.9 L MCV 82.7 MCH 30.0 MCHC 36.3 H RDW Std Deviation 41.1 RDW Coeff of Olivia 13.8 Plt Count 148 MPV 9.8 PT INR Sodium 124 L Potassium 4.2 D Chloride 93 L Carbon Dioxide 24 Anion Gap 7 BUN 11 Creatinine 0.72 Est Cr Clr Drug Dosing 115.9 Est GFR ( Amer) 112.7 Est GFR (Non-Af Amer) 97.2 BUN/Creatinine Ratio 15.3 Glucose 150 H Estimat Average Glucose Hemoglobin A1c Osmolality Calcium 9.2 Phosphorus 2.6 Magnesium Total Bilirubin Direct Bilirubin AST ALT Alkaline Phosphatase Ammonia Total Protein Albumin 4.3 Globulin Albumin/Globulin Ratio Vitamin B1 Vitamin B12 Thyroxine (T4) Free T3 Urine Color Urine Appearance Urine pH Ur Specific [place] Urine Protein Urine Glucose (UA) Urine Ketones Urine Blood Urine Nitrite Urine Bilirubin Urine Urobilinogen Ur Leukocyte Esterase Urine Osmolality 141 L Ur Random Sodium Nasal Screen MRSA (PCR) 02/12/22 02/12/22 02/12/22 07:56 07:56 07:56 WBC RBC Hgb Hct MCV MCH MCHC RDW Std Deviation RDW Coeff of Olivia Plt Count MPV PT 11.9 INR 1.1 Sodium 125 L Potassium 3.9 Chloride 96 L Carbon Dioxide 21 Anion Gap 8 BUN 9 Creatinine 0.76 Est Cr Clr Drug Dosing 109.8 Est GFR ( Amer) 110.2 Est GFR (Non-Af Amer) 95.1 BUN/Creatinine Ratio 11.8 Glucose 138 H Estimat Average Glucose Pending Hemoglobin A1c Pending Osmolality Calcium 9.0 Phosphorus 2.9 Magnesium 1.7 Total Bilirubin 1.1 H Direct Bilirubin 0.3 H AST 132 H ALT 74 H Alkaline Phosphatase 92 Ammonia Total Protein 8.0 Albumin 4.2 Globulin Albumin/Globulin Ratio Vitamin B1 Vitamin B12 Thyroxine (T4) Free T3 Urine Color Urine Appearance Urine pH Ur Specific [place] Urine Protein Urine Glucose (UA) Urine Ketones Urine Blood Urine Nitrite Urine Bilirubin Urine Urobilinogen Ur Leukocyte Esterase Urine Osmolality Ur Random Sodium Nasal Screen MRSA (PCR) PG Care Time/CCT Total # of Minutes Spent Total Time Spent with Patient: Total time spent is greater than 50% in coordination of care (as documented) at patient's floor/unit and/or counseling patient: Coding Level of Care Code 59958 Subseq Hosp Care Lvl 3 Diagnoses Hyponatremia E87.1 Acute psychosis F23 Electrolyte abnormality E87.8 Bipolar 1 disorder F31.9
[2022-02-12 10:09] LABS: Estimated Average Glucose 123 mg/dl; Hemoglobin A1C 5.9 % (4.5-5.6)
--- NOTE | 2022-02-12 10:19 | Ultrasound Report ---
US liver CLINICAL HISTORY: elevated LFTs, hx cirrhotic liver COMPARISON STUDY: CT of the abdomen and pelvis December 07, 2018. FINDINGS: There is slight nodularity of the liver surface. No hepatic lesions are identified. There i s no biliary ductal dilatation. The common bile duct measures 5 mm in caliber. The pancreatic body is normal. Head and tail are obscured. The gallbladder is normal. There are no gallstones. There is no right hydronephrosis. A few right renal cysts measure up to 1.2 cm. IMPRESSION: 1. No gallstones or biliary ductal dilatation. 2. Nodularity of the liver surface suggestive of cirrhosis. No hepatic lesions identified. ACT 112: Negative or not required by law. Electronically signed by: Fernando Bah M.D. 02/12/2022 10:18 AM
--- NOTE | 2022-02-12 10:22 | Ultrasound Report ---
ULTRASOUND ASCITES CHECK CLINICAL HISTORY: Cirrhosis. COMPARISON STUDY: Abdominal CT dated 12/07/2018 FINDINGS: Real-time grayscale sonography of all 4 quadrants of the abdomen is performed to assess for abdominal ascites. No abdominal ascites is seen at this time. IMPRESSION: There is no sonographic evidence of abdominal ascites. Electronically signed by: Judah Abebe M.D. 02/12/2022 10:21 AM
--- NOTE | 2022-02-12 12:19 | Psychiatric Consultation ---
Date of Consultation February 12, 2022 Impression / Recommendations Impression 66 yo male with a hx of britta, transfer from [facility] with significant hyponatremia seemingly precipitated by Keppra thought was taking lithium with chlorthalidone prior to admission. Ongoing AMS related to hyponatremia. Will need to monitor mood symptoms as currently off medications with prn Ativan pending correction of sodium and additional records. Unclear if still prescribed Seroquel, reported 200 mg hx, last script >30 days. (1) Bipolar 1 disorder: Plan patient is agreeable to return to the [facility] when medically cleared. Psych History Identifying Data 66 yo male from [place] with a hx of Bipolar disorder, presented initially to ED on 02/06/22 for poor sleep and increased argumentative behavior with . He was admit [facility] and subsequently transferred to [facility] for medical emergency. Chief Complaint confused, hyponatremia History of Present Illness Per PDMP, additional hx, discussion with LORIN Daniel, patient was recently started on Olar as an outpatient in combination with Depakote then both stopped abruptly upon admission to [facility] in favor of a trial of Keppra. His sleep has been poor despite temazepam and trazodone. Patient was also somewhat religiously preoccupied on admission to the [facility], not frankly suicidal but making references to the sahil of . He has not been agitated, just confused, sometimes making delusional statements here like referring to himself as Cobra. MS improving as sodium improves. Today he reports emesis this am (unwitnessed), is oriented to place, referring to self by appropriate name, believes he came to [facility] for surgery. Past Psychiatric History Outpatient Services: [facility]--Edei Albarran PA-C. Previous Psych Admissions: [facility] 2004 (twice as left prematurely), 2019 [facility] for manic behavior following a family trip to [place] Past Medication Trials: Depakote, Seroquel, Klonopin, Olar, "others", chlorpromazine, Allergies Allergy/AdvReac Type Severity Reaction Status Date / Time diphenhydramine Allergy Unknown Unknown Verified 02/11/22 01:31 guaifenesin Allergy Unknown Unknown Verified 02/11/22 01:31 ibuprofen Allergy Unknown Unknown Verified 02/11/22 01:31 pseudoephedrine Allergy Unknown Unknown Verified 02/11/22 01:31 Home Medications Medication Instructions Recorded Confirmed Type chlorthalidone 25 mg tablet 25 mg PO DAILY 12/07/18 02/11/22 History metformin 500 mg tablet 500 mg PO DAILY 12/07/18 02/11/22 History allopurinol 100 mg tablet 100 mg PO DAILY 02/06/22 02/11/22 History acetaminophen 325 mg tablet 650 mg PO Q6 PRN Pain 02/11/22 02/11/22 History atorvastatin 40 mg tablet 40 mg PO HS 02/11/22 02/11/22 History levetiracetam 1,000 mg tablet 1,000 mg PO HS 02/11/22 02/11/22 History levetiracetam 500 mg tablet 500 mg PO BID 02/11/22 02/11/22 History lisinopril 10 mg tablet 10 mg PO DAILY 02/11/22 02/11/22 History meloxicam 15 mg tablet 15 mg PO DAILY 02/11/22 02/11/22 History quetiapine 300 mg tablet 300 mg PO HS 02/11/22 02/11/22 History quetiapine 50 mg tablet 50 mg PO .EVERY 30 MINUTES PRN 02/11/22 02/11/22 History Agitation quetiapine 50 mg tablet 50 mg PO BID 02/11/22 02/11/22 History Personal History Beliefs That Will Affect Care: None Patient History Medical History Bipolar 1 disorder Elevated LFTs HLD (hyperlipidemia) Hyponatremia Family History Other No significant family history Social History Smoking Status: Unknown if ever smoked Preferred Language: Italian Communication Ability: Effective [employer] Required: No Beliefs That Will Affect Care: None marital status: Current Living Situation: Spouse and Personal Care Facility current occupational status: 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 Feels Safe at Home: Declines to Answer Assistive Devices: None Physical Exam Psychiatric: Orientation: alert Apperance: appropriately groomed Eye Contact: + fair eye contact Motor Behavior: no abnormal motor movements Speech: normal rate/rhythm/volume of speech Affect: + constricted affect Mood: no anxious mood Thought Process: + concrete thought process Thought Content: no delusions (but confused about why he is in hospital) Suicidal Thoughts: denies suicidal thoughts Homicidal Thoughts: denies homicidal thoughts Hallucinations: no auditory hallucinations and no visual hallucinations Cognition: language grossly intact; + attention not intact Estimated Intelligence: consistent with education level Insight: + limited insight Judgement: + limited judgement Vital Signs (Past 24 Hours): Last Vital Signs Temp 36.6 C 02/12/22 07:01 Pulse 69 02/12/22 10:22 Resp 18 02/12/22 07:01 BP 148/83 H 02/12/22 07:01 Pulse Ox 94 02/12/22 07:01 O2 Del Method 02/12/22 07:01 Review of Systems All systems reviewed & are unremarkable except as noted in HPI & below Results & Data ([facility]) Laboratory Results 02/12/22 02/12/22 02/12/22 Range/Units 07:56 07:56 07:56 WBC (4.8-10.8) K/ul RBC (4.63-6.08) M/uL Hgb (14.0-18.0) g/dl Hct (40.1-51.0) % MCV (80.0-100.0) fL MCH (25.0-34.0) pg MCHC (32.0-36.0) g/dL RDW Std Deviation (36.4-46.3) fL RDW Coeff of Olivia (11.5-14.5) % Plt Count (130-400) K/uL MPV (9.4-12.4) fL PT 11.9 (9.0-12.0) Seconds INR 1.1 (0.9-1.1) Sodium 125 L (136-145) mmol/L Potassium 3.9 (3.5-5.1) mmol/L Chloride 96 L (98-107) mmol/L Carbon Dioxide 21 (21-32) mmol/L Anion Gap 8 (3-11) BUN 9 (6-23) mg/dl Creatinine 0.76 (0.6-1.4) mg/dl Est Cr Clr Drug Dosing 109.8 ml/min Est GFR ( Amer) 110.2 ml/min Est GFR (Non-Af Amer) 95.1 ml/min BUN/Creatinine Ratio 11.8 (10-20) Glucose 138 H (70-99(Fasting)) mg/dl Estimat Average Glucose 123 mg/dl Hemoglobin A1c 5.9 H (4.5-5.6) % Calcium 9.0 (8.5-10.1) mg/dl Phosphorus 2.9 (2.5-4.9) mg/dl Magnesium 1.7 (1.7-2.4) mg/dl Total Bilirubin 1.1 H (0.2-1.0) mg/dl Direct Bilirubin 0.3 H (0-0.2) mg/dl AST 132 H (13-39) U/L ALT 74 H (7-52) U/L Alkaline Phosphatase 92 (34-104) U/L Total Protein 8.0 (6.0-8.3) gm/dl Albumin 4.2 (3.4-5.0) gm/dl Urine Osmolality (500-800) mOsm/kg Nasal Screen MRSA (PCR) (Negative) 02/12/22 02/11/22 02/11/22 Range/Units 07:56 16:24 11:12 WBC 7.55 (4.8-10.8) K/ul RBC 4.46 L (4.63-6.08) M/uL Hgb 13.4 L (14.0-18.0) g/dl Hct 36.9 L (40.1-51.0) % MCV 82.7 (80.0-100.0) fL MCH 30.0 (25.0-34.0) pg MCHC 36.3 H (32.0-36.0) g/dL RDW Std Deviation 41.1 (36.4-46.3) fL RDW Coeff of Olivia 13.8 (11.5-14.5) % Plt Count 148 (130-400) K/uL MPV 9.8 (9.4-12.4) fL PT (9.0-12.0) Seconds INR (0.9-1.1) Sodium 124 L (136-145) mmol/L Potassium 4.2 D (3.5-5.1) mmol/L Chloride 93 L (98-107) mmol/L Carbon Dioxide 24 (21-32) mmol/L Anion Gap 7 (3-11) BUN 11 (6-23) mg/dl Creatinine 0.72 (0.6-1.4) mg/dl Est Cr Clr Drug Dosing 115.9 ml/min Est GFR ( Amer) 112.7 ml/min Est GFR (Non-Af Amer) 97.2 ml/min BUN/Creatinine Ratio 15.3 (10-20) Glucose 150 H (70-99(Fasting)) mg/dl Estimat Average Glucose mg/dl Hemoglobin A1c (4.5-5.6) % Calcium 9.2 (8.5-10.1) mg/dl Phosphorus 2.6 (2.5-4.9) mg/dl Magnesium (1.7-2.4) mg/dl Total Bilirubin (0.2-1.0) mg/dl Direct Bilirubin (0-0.2) mg/dl AST (13-39) U/L ALT (7-52) U/L Alkaline Phosphatase (34-104) U/L Total Protein (6.0-8.3) gm/dl Albumin 4.3 (3.4-5.0) gm/dl Urine Osmolality 141 L (500-800) mOsm/kg Nasal Screen MRSA (PCR) (Negative) 02/11/22 Range/Units 11:01 WBC (4.8-10.8) K/ul RBC (4.63-6.08) M/uL Hgb (14.0-18.0) g/dl Hct (40.1-51.0) % MCV (80.0-100.0) fL MCH (25.0-34.0) pg MCHC (32.0-36.0) g/dL RDW Std Deviation (36.4-46.3) fL RDW Coeff of Olivia (11.5-14.5) % Plt Count (130-400) K/uL MPV (9.4-12.4) fL PT (9.0-12.0) Seconds INR (0.9-1.1) Sodium (136-145) mmol/L Potassium (3.5-5.1) mmol/L Chloride (98-107) mmol/L Carbon Dioxide (21-32) mmol/L Anion Gap (3-11) BUN (6-23) mg/dl Creatinine (0.6-1.4) mg/dl Est Cr Clr Drug Dosing ml/min Est GFR ( Amer) ml/min Est GFR (Non-Af Amer) ml/min BUN/Creatinine Ratio (10-20) Glucose (70-99(Fasting)) mg/dl Estimat Average Glucose mg/dl Hemoglobin A1c (4.5-5.6) % Calcium (8.5-10.1) mg/dl Phosphorus (2.5-4.9) mg/dl Magnesium (1.7-2.4) mg/dl Total Bilirubin (0.2-1.0) mg/dl Direct Bilirubin (0-0.2) mg/dl AST (13-39) U/L ALT (7-52) U/L Alkaline Phosphatase (34-104) U/L Total Protein (6.0-8.3) gm/dl Albumin (3.4-5.0) gm/dl Urine Osmolality (500-800) mOsm/kg Nasal Screen MRSA (PCR) Negative (Negative) Medications Administered Acetaminophen (Acetaminophen 325 Mg Tab) 650 mg PO Q4H PRN PRN Reason: pain/fever Stop: 03/13/22 04:56 Last Admin: 02/12/22 04:58 Dose: 650 mg Documented By: Admin: 02/12/22 00:37 Dose: 650 mg Documented By: Admin: 02/11/22 16:41 Dose: 650 mg Documented By: Admin: 02/11/22 07:51 Dose: 650 mg Documented By: GISELLA Allopurinol (Allopurinol 100 Mg Tab) 100 mg PO DAILY YOGI Stop: 03/13/22 08:59 Last Admin: 02/12/22 07:56 Dose: 100 mg Documented By: Admin: 02/11/22 07:50 Dose: 100 mg Documented By: GISELLA Atorvastatin Calcium (Atorvastatin 40 Mg Tab) 40 mg PO HS [facility] Stop: 03/13/22 20:59 Last Admin: 02/11/22 20:03 Dose: 40 mg Documented By: BRIT Lorazepam 1 mg/ Syringe 1 mls @ 2 mls/min IV Q8H PRN PRN Reason: Anxiety, agitation, or seizure Stop: 03/13/22 08:29 Last Admin: 02/12/22 02:53 Dose: 2 mls/min Documented By: BRIT Thiamine HCl 200 mg/ Sodium (Chloride) 52 mls @ 208 mls/hr IV QAM YOGI Stop: 03/13/22 18:59 Last Infusion: 02/12/22 08:54 Dose: 0 mls/hr Documented By: Admin: 02/12/22 08:17 Dose: 208 mls/hr Documented By: Infusion: 02/11/22 19:31 Dose: 0 mls/hr Documented By: Admin: 02/11/22 19:16 Dose: 208 mls/hr Documented By: BRIT Lisinopril (Lisinopril 10 Mg Tab) 10 mg PO DAILY YOGI Stop: 03/13/22 08:59 Last Admin: 02/12/22 07:55 Dose: 10 mg Documented By: Admin: 02/11/22 07:49 Dose: 10 mg Documented By: GISELLA Melatonin (Melatonin 3 Mg Tab) 3 mg PO HS PRN PRN Reason: Sleep Stop: 03/13/22 18:03 Last Admin: 02/11/22 20:03 Dose: 3 mg Documented By: BRIT Senna/Docusate Sodium (Docusate Sodium/Senna 50/8.6mg Tab) 1 tab PO QAM YOGI Stop: 03/14/22 08:59 Last Admin: 02/12/22 08:17 Dose: 1 tab Documented By: Sodium Chloride (Sodium Chloride 1 Gm Tablet) 1 gm PO BID YOGI Stop: 03/14/22 09:29 Last Admin: 02/12/22 10:02 Dose: 1 gm Documented By: Coding Level of Care Code 72286 [facility] Intl Hosp Care Lvl 2 Diagnoses Bipolar 1 disorder F31.9
[2022-02-12] MEDS ORDERED: LORazepam 0.25 MG in SYRINGE 0 ML IV STA (19:37)
[2022-02-12] MEDS: ATORVASTATIN 40 MG TAB PO SCH (20:09)
[2022-02-12] MEDS: SODIUM CHLORIDE 1 GM TABLET PO SCH (20:10)
[2022-02-13] MEDS: ACETAMINOPHEN 325 MG TAB PO PRN (04:51)
[2022-02-13] MEDS: LORazepam 1 MG in SYRINGE 0 ML IV PRN (05:34)
[2022-02-13] MEDS ORDERED: ALUMINUM/MAGNESIUM SUSP 30 ML UDC PO PRN (08:03)
[2022-02-13] MEDS: DOCUSATE SODIUM/SENNA 50/8.6MG TAB PO SCH (08:07)
[2022-02-13] MEDS: allopurinoL 100 MG TAB PO SCH (08:07)
[2022-02-13] MEDS: lisinopril 10 MG TAB PO SCH (08:07)
[2022-02-13] MEDS: THIAMINE HCL 200 MG in SODIUM CHLORIDE 0.9% 50 ML IV SCH (08:08)
[2022-02-13] MEDS ORDERED: LORazepam 1 MG in SYRINGE 0 ML IV PRN (08:08)
--- NOTE | 2022-02-13 08:08 | Hospitalist Progress Note ---
Date of Service February 13, 2022 Assessment & Plan (1) Metabolic encephalopathy: Plan: Patient presented to ER from the [facility] after being found down and with emesis and altered mental status, with electrolyte derangements Given ativan on admit Na 122 (133 on d/c to [facility] 02/06), K 2.8, Mag 1.6 No EKG on admit, decision to move to telemetry for closer monitoring this morning, donavan given reports emesis (KUB checked, no obstruction). Has been NSR w/ ectopy (has tremor, baseline and chronic per patient and reported as hereditary, however no tremor on exam today) CT head negative on admit but did show 10 mm ovoid nodule in the suprasellar region located adjacent to the tip of the basilar. This may represent aneurysm, and correlation with a CT angiogram of the brain is recommended for further assessment. CTA for further eval : IMPRESSION: 1. No acute intracranial hemorrhage, evidence of acute territorial infarction, or other acute intracranial disease process. 2. No occlusion, hemodynamically significant stenosis, aneurysm, dissection, or arteriovenous malformation in the major intracranial arteries. In particular, no basilar tip aneurysm is seen, the radiodensity in the anterior shil[place] is not vascular in character. Checked additional labs: Ammonia 35 B12 1133 B1 pending -- started/continue empiric thiamine. Will switch to PO to prevent excess IV TSH wnl/Ft4/t3 wnl (had been elevated to 5.074 02/06, ?acute from recent lithium use earlier in the month?) Keppra ordered initially on admit, given IV d/t prior emesis, however, appears this has been recently started at [facility] with klonopin in place of temazepam and in patient w/ hx cirrhosis already and hyponatremia, suspect worsened both and contributed to LFT elevation on admit D/C further Keppra Of note, discussed with his on phone after I picked him up, who was unaware patient was not at the [facility] until this morning, and states patient had been hospitalized in 2019 after stressful trip to [facility]/ episode of Britta and was transferred to [facility] psych for treatment She states he has had issues with this when they were younger ( 43 years) but had not had an issue prior to that for about 10 years and was actually quite stable on regimen as follows: * QAM : Topamax 100mg, Gabapentin 500mg, atorvastatin 30mg, chlorthalidone 25mg, metformin 500mg (pre-DM), meloxicam 15mg (for trigger finger) * Noon: MVI, Vitamin D 3, B complex * 5pm: gabapentin 600mg * HS: Topamax 100mg, gabapentin 600mg, depakote 500mg, seroquel 200mg, mag oxide 500mg, melatonin 15-18mg, and chloropromazine 20-25mg as needed for emergency if not sleeping She notes issues w/ insomnia and had not been sleeping/decline starting over the summer and they were working with MD at [facility] to help since August She notes that they started him on ambien, but that they then changed to Temazepam 15mg which was not really helpful per her account. They then decided to add trazodone for sleep/anxiety/mood In September/October 2021 was seen by heme/onc (denies ca diagnosis, but mentions something having to do with his liver but not entirely sure) and was started on allopurinol 100mg daily along with biotin as he was having issues with his nails and biting them. PCP is Dr Morgan at [facility] About 2 weeks ago, they were going to start [place] and taper him off the depakote but decided to start the lithium and continue that and depakote. Had been sleeping 1-2 hours at night, wetting the bed. ?DI from the lithium She did note she returned a 400$ saw the past month, likely purchased during period of britta as well but states he really has been not quite right for a while She notes that prior Saturday he did appear more like himself but then declined and ultimately was getting very nasty with her verbally before going to the [facility] She also mentions that she herself is on ativan prn anxiety related to her husbands condition and that she has mentioned it to multiple providers but that they did not think that was warranted Discussed with Na level could be multifactorial/increased free water/medications w/ psych meds/chlorthalidone use Seizure precautions in place given hyponatremia -- per patient, confirmed with , no known seizure activity Consultation with Nephrology - urine osm 141, clinical hx polydipsia complicated by chlorthalidone use. Stopped IVF, continue fluid restriction, should improve by itself with such per discussion with Dr Bernal - electrolyte replacement -- K resolved on repeat, mag as well -Repeat Na t 124, mentating. K 4.2, Mag 2.1. 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 Consider adding trazodone as started over summer but will do less for now to prevent further clouding of clinical picture. Decreased frequency of ativan to q4h Actually got some sleep yesterday reported, was calm for me during encounter but became upset overnight for staff about wanting to have sex with his but not being allowed They req records from [facility] Appreciate continued assistance/recs (2) Acute psychosis: Plan: as above, multifactorial still with delusions, some britta at times/agitation, poor sleep reported prior but states did get some sleep yesterday (was resting when I saw him again in afternoon 02/12) Psych consulted Of prior regimen as above, on ativan prn/melatonin for now (3) Hyponatremia: Plan: 122 on admit, given IVF in ER, no repeat ordered -- asked to draw this morning, lower at 121 No evidence for seizure, denies personal history of such but placed on seizure precautions TSH wnl on repeat -- see above Urine Na 42, urine osm 141, serum osm 259 Nephrology following Na 125, currently on2gm PO Nacl BID, repeat labs this afternoon Repeat labs this afternoon, appreciate continued assistance w/ nephrology No seizure activity (4) Insomnia: Plan: chronic issue, likely causing acute britta/psychosis reports sleeping 1-2 hours at night at a time Recently started temazepam outpatient but without much benefit, also had added trazodone which hasn't helped much either. melatonin HS had been tried in past as well inquiring about Ativan -- is available prn for any agitation/psychosis for time being and has been utilized of note they did give some Klonopin w/ Keppra at [facility] but patient reported continued poor sleep Ativan prn as above, did get some sleep yesterday, mood dose seem improved for me but had episode agitation overnight as above (5) Bipolar 1 disorder: Plan: hx of such -- see above regarding history from under #1 (6) Electrolyte abnormality: Plan: Na 122, multifactorial as above--> fluid restriction, holding chlorthalidone, Na 124 on repeat K 2.8 - 60meq ordered for this morning, did have some emesis -- ordered K Riders -- repeat K 4.2 this afternoon. 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 Was present on prior imaging from 2019. CTA head w/o acute finding (8) H/O: HTN (hypertension): Plan: Per on chlorthalidone for years In system, did have slightly low Na back in 2019, probably not best choice for HTN for this patient given risk for hyponatremia to begin with along with other electrolyte abnormalities Added metoprolol 12.5mg BID given elevated BPs 167/96 this morning -- monitor response (9) HLD (hyperlipidemia): Plan: On atorvastain 40mg daily per (10) Pre-diabetes: Plan: per on 500mg metformin daily given polydipsia, however thirst likely from low Na, will check A1c w/ AM labs -- 5.9 cannot r/o and diabetes insipidus from lithium use given prior reports massive water intake SIADH as above given repeat labs, monitor response (11) Polydipsia: Plan: multifactorial, plan as above (12) Elevated LFTs: Plan: elevated on admit, higher than prior ?medication related No abdominal pain Did have mention probable hepatic cirrhosis with hepatosplenomegaly on CTAP from 2019 Ammonia wnl B1 pending, denied any hx etoh, but has cirrhosis likely from medications US liver/US abd for ascites unremarkable Did d/c zofran given prolonged QTC on EKG 0-- has been NSR w/ PVCs on monitor, as had ripped off monitor day prior Given such, appreciate psych input regarding medications and will monitor repeat labs in AM Plan continued inpatient stay Continued off psych meds x ativan prn/melatonin./ Work on sleep/wake cycles Holding chlorthalidone to prevent worsening hyponatremia Nacl increased to 2gm BID per nephrology, repeat labs this afternoon -- appreciate continued assistance Psych consulted -- appreciate assistance as patient does exhibit sx of bipolar/britta over past year, worsened significantly by insomnia. obtaining outpt records from [facility] Metoprolol 12.5mg BID added for BP control, monitor response on tele Continued inpatient stay, but eventual plan for d/c back to [facility] when medically stable Admission and Anticipated Discharge Date Admission Date: February 11, 2022 Supervising Physician Co-Signing Physician Notes Attending Attestation - Chart reviewed, care plan d/w CLAUDIA Power. I agree w/ the larson components of her documentation. Bryant Thomas MD Subjective eval this morning seems calm, cooperative. Had some issues overnight with being upset he couldn't have sex with his . states no further emesis. no abdominal pain to report. reports he got some rest yesterday, working on getting Na level further improved. No fever/chills, chest pain, shortness of breath, LE edema. Questions/concerns addressed at this time. Review of Systems Review of Systems: All systems reviewed & are unremarkable except as noted in HPI & below Physical Exam Physical Exam: General: WD/WN male sitting up in bed, 1:1 at bedside, alert oriented to person/place/month, but has some delusions, NAD HEENT: head normocephalic, atraumatic, mmm, trachea midline Resp: CTAB, no w/c/r, on room air CV: RRR, no m/r/g, no significant LE edema, no calf tenderness, pulses palpable GI: +BS, soft/NT : no Flannery MSK/Neuro: no focal deficit, no slurred speech/facial droop, no further resting tremor (reported chronic, not as noticeable on exam today) Psych: AO to person/place/month but not date, tangential speech at times, pressured at times, delusional, does appear much more calm today/less pressured speech Results & Data Results & Data ([facility]) Vital Signs (Past 12 Hours) Vital Signs Temp Pulse Pulse Resp BP BP Pulse Ox 02/13/22 07:46 36.7 C 69 16 167/96 H 98 02/13/22 03:49 36.8 C 72 16 179/102 H 97 02/12/22 22:05 66 02/12/22 20:15 36.9 C 78 17 170/85 H 96 O2 Del Method 02/13/22 07:46 Room Air 02/13/22 03:49 Room Air 02/12/22 22:05 02/12/22 20:15 Room Air Laboratory Results 02/13/22 02/12/22 02/12/22 Range/Units 07:40 17:00 12:51 Sodium 125 L 126 L (136-145) mmol/L Potassium 3.7 (3.5-5.1) mmol/L Chloride 96 L (98-107) mmol/L Carbon Dioxide 20 L (21-32) mmol/L Anion Gap 9 (3-11) BUN 11 (6-23) mg/dl Creatinine 0.71 (0.6-1.4) mg/dl Est Cr Clr Drug Dosing 117.5 ml/min Est GFR ( Amer) 113.3 ml/min Est GFR (Non-Af Amer) 97.8 ml/min BUN/Creatinine Ratio 15.5 (10-20) Glucose 125 H (70-99(Fasting)) mg/dl Calcium 9.3 (8.5-10.1) mg/dl Phosphorus 3.2 (2.5-4.9) mg/dl Magnesium 1.7 (1.7-2.4) mg/dl Albumin 4.3 (3.4-5.0) gm/dl Urine Osmolality 478 L (500-800) mOsm/kg PG Care Time/CCT Total # of Minutes Spent Total Time Spent with Patient: Total time spent is greater than 50% in coordination of care (as documented) at patient's floor/unit and/or counseling patient: Coding Level of Care Code 08130 Subseq Hosp Care Lvl 3 Diagnoses Metabolic encephalopathy G93.41 Acute psychosis F23 Hyponatremia E87.1 Insomnia G47.00 Bipolar 1 disorder F31.9 Electrolyte abnormality E87.[address] scan R93.89 H/O: HTN (hypertension) Z86.79 HLD (hyperlipidemia) E78.5 Pre-diabetes R73.03 Polydipsia R63.1 Elevated LFTs R79.89
[2022-02-13] MEDS: SODIUM CHLORIDE 1 GM TABLET PO SCH ×2 (08:33→21:47)
[2022-02-13 10:02] LABS: Albumin Level 4.3 gm/dl (3.4-5.0); BUN Creatinine Ratio 15.5 (10-20); Calcium 9.3 mg/dl (8.5-10.1); Creatinine Clr Calc Pharmacy 117.5 ml/min; Est GFR (African American) 113.3 ml/min; Est GFR (Non-African American) 97.8 ml/min; Magnesium 1.7 mg/dl (1.7-2.4); Phosphorus 3.2 mg/dl (2.5-4.9); Potassium 3.7 mmol/L (3.5-5.1)
--- NOTE | 2022-02-13 10:53 | Nephrology Progress Note ---
Date of Service February 13, 2022 Assessment & Plan (1) Hyponatremia: Plan: Attributed to polydipsia, hypokalemia, and chlorthalidone. Continue to hold chlorthalidone. Repeat urine osmolality yesterday demonstrating inappropriate ADH . Euvolemic on exam. Oral NaCl increaesd to 2 gram BID yesterday. Repeat serum sodium this afternoon. Document I/O's. (2) Acute psychosis: Plan: No noted polydipsia since admission. Psychiatric consultation reviewed. Remains on 1:1. (3) Electrolyte abnormality: Plan: Improved hypokalemia and hypomagnesemia. Dietary. Encourage nutrition. (4) Bipolar 1 disorder: Admission and Anticipated Discharge Date Admission Date: February 11, 2022 Subjective No acute events overnight. Resting comfortably in bed this AM. No fluid retention or edema. Frustrated by fluid restriction. Tolerating oral NaCl. Review of Systems Review of Systems: All systems reviewed & are unremarkable except as noted in HPI & below Physical Exam Constitutional: well developed; no acute distress Eyes: no scleral abnormality and no corneal abnormality ENMT: Mouth: no oral mucosal abnormality and oral mucous membranes not dry Neck: normal visual inspection and trachea midline Respiratory: normal respiratory effort Auscultation: lungs clear to auscultation bilaterally Cardiovascular: Rate/Rhythm: regular rate Heart Sounds: normal S1 and normal S2 Extremities: no edema Musculoskeletal: Extremities: no cyanosis and no clubbing Skin: + turgor decreased; no lesions Neurologic: Motor/Sensory: no tremor and no asterixis Psychiatric: Orientation: alert and cooperative Results & Data ([facility]) Vital Signs (Past 12 Hours) Vital Signs Temp Pulse Resp BP BP Pulse Ox O2 Del Method 02/13/22 07:46 36.7 C 69 16 167/96 H 98 Room Air 02/13/22 03:49 36.8 C 72 16 179/102 H 97 Room Air Laboratory Results Laboratory Results - last 24 hr 02/12/22 02/12/22 02/13/22 12:51 17:00 07:40 Sodium 126 L 125 L Potassium 3.7 Chloride 96 L Carbon Dioxide 20 L Anion Gap 9 BUN 11 Creatinine 0.71 Est Cr Clr Drug Dosing 117.5 Est GFR ( Amer) 113.3 Est GFR (Non-Af Amer) 97.8 BUN/Creatinine Ratio 15.5 Glucose 125 H Calcium 9.3 Phosphorus 3.2 Magnesium 1.7 Albumin 4.3 Urine Osmolality 478 L PG Care Time/CCT Total # of Minutes Spent Total Time Spent with Patient: Total time spent is greater than 50% in coordination of care (as documented) at patient's floor/unit and/or counseling patient: Coding Level of Care Code 89306 Subseq Hosp Care Lvl 3 Diagnoses Hyponatremia E87.1 Acute psychosis F23 Electrolyte abnormality E87.8 Bipolar 1 disorder F31.9
[2022-02-13] MEDS: POTASSIUM CHLORIDE CRTAB 20 MEQ TABCR PO STA ×2 (15:19→15:21)
[2022-02-13] MEDS ORDERED: METOPROLOL TARTRATE 25 MG TAB PO ONE (15:38)
[2022-02-13 16:36] LABS: BUN Creatinine Ratio 17.9 (10-20); Calcium 8.9 mg/dl (8.5-10.1); Est GFR (Non-African American) 94.1 ml/min; Potassium 3.7 mmol/L (3.5-5.1)
[2022-02-13] MEDS ORDERED: STAT IV STA ×2 (17:12→22:07)
[2022-02-13] MEDS ORDERED: SODIUM CHLORIDE 3 % 150 ML IV ONE ×2 (17:12→22:07)
[2022-02-13] MEDS ORDERED: FUROSEMIDE 20 MG TAB PO ONE (17:13)
[2022-02-13] MEDS: THIAMINE HCL 100 MG TAB PO SCH (21:47)
[2022-02-13] MEDS: METOPROLOL TARTRATE 25 MG TAB PO SCH (21:48)
[2022-02-13] MEDS: ATORVASTATIN 40 MG TAB PO SCH (21:48)
[2022-02-14 07:19] LABS: Hematocrit (blood only) 41.7 % (40.1-51.0); Hemoglobin 15.1 g/dl (14.0-18.0); Mean Corpuscular Hemoglobin 29.8 pg (25.0-34.0); Mean Corpuscular Hgb Conc 36.2 g/dL (32.0-36.0); Mean Corpuscular Volume 82.2 fL (80.0-100.0); Platelet Count 215 K/uL (130-400); RDW Coefficient of Variation 14.4 % (11.5-14.5); RDW Standard Deviation 42.4 fL (36.4-46.3); Red Blood Count 5.07 M/uL (4.63-6.08); White Blood Count 10.25 K/ul (4.8-10.8)
[2022-02-14 07:41] LABS: Albumin Level 4.3 gm/dl (3.4-5.0); BUN Creatinine Ratio 23.3 (10-20); Bilirubin Direct 0.3 mg/dl (0-0.2); Bilirubin,Total 1.1 mg/dl (0.2-1.0); Calcium 9.4 mg/dl (8.5-10.1); Creatinine Clr Calc Pharmacy 114.3 ml/min; Est GFR (Non-African American) 96.7 ml/min; Magnesium 1.8 mg/dl (1.7-2.4); Potassium 3.8 mmol/L (3.5-5.1); Total Protein 8.5 gm/dl (6.0-8.3)
[2022-02-14] MEDS ORDERED: POTASSIUM CHLORIDE 10 MEQ TABCR PO STA (08:02)
[2022-02-14] MEDS: METOPROLOL TARTRATE 25 MG TAB PO SCH ×2 (08:11→20:49)
[2022-02-14] MEDS: DOCUSATE SODIUM/SENNA 50/8.6MG TAB PO SCH (08:12)
[2022-02-14] MEDS: SODIUM CHLORIDE 1 GM TABLET PO SCH ×2 (08:12→20:48)
[2022-02-14] MEDS: THIAMINE HCL 100 MG TAB PO SCH ×2 (08:13→20:48)
[2022-02-14] MEDS: allopurinoL 100 MG TAB PO SCH (08:13)
[2022-02-14] MEDS: lisinopril 10 MG TAB PO SCH (08:13)
[2022-02-14] MEDS: FUROSEMIDE 20 MG TAB PO SCH ×3 (08:38→09:40)
--- NOTE | 2022-02-14 09:26 | Nephrology Progress Note ---
Date of Service February 14, 2022 Assessment & Plan (1) Hyponatremia: Plan: Attributed to polydipsia, hypokalemia, and chlorthalidone on admission. Chlorthalidone has been appropriately held. Initially, U osm was 141. Emery did lose some free water in his urine but subsequently, hyponatremia plateaued. Volume status has remained relatively euvolemic. Emery certainly has not appeared dehydrated. He has been maintained on a 1.2 L daily fluid restriction. Serum sodium improved slightly with salt replacement and in the setting of increased BP and rising urine osmolality furosemide was provided yesterday. It is unclear why Emery would develop progressive SIADH at this time. However, volume status remains reasonable and sodium low. Additional furosemide 20 mg provided this AM with PO NaCl. Repeat serum sodium this afternoon. Document I/O's. (2) Acute psychosis: Plan: Remains off psychiatric medications. I do not have a great explanation for the etiology of ADH production. As serum sodium improves, I will eventually attempt to gradually wean fluid restriction and oral sodium. (3) Electrolyte abnormality: Plan: Encourage nutrition. Additional KCl 10 mEq provided this AM. (4) Bipolar 1 disorder: Admission and Anticipated Discharge Date Admission Date: February 11, 2022 Subjective No acute events overnight. No complaints this AM. Appetite remains good. Tolerating fluid restriction. Review of Systems Review of Systems: All systems reviewed & are unremarkable except as noted in HPI & below Physical Exam Constitutional: well developed; no acute distress Eyes: no scleral abnormality and no corneal abnormality ENMT: Mouth: no oral mucosal abnormality and oral mucous membranes not dry Neck: normal visual inspection and trachea midline Respiratory: normal respiratory effort Auscultation: lungs clear to auscultation bilaterally Cardiovascular: Rate/Rhythm: regular rate Heart Sounds: normal S1 and normal S2 Extremities: no edema Musculoskeletal: Extremities: no cyanosis and no clubbing Skin: + turgor decreased; no lesions Neurologic: Motor/Sensory: no tremor and no asterixis Psychiatric: Orientation: alert and cooperative Results & Data ([facility]) Vital Signs (Past 12 Hours) Vital Signs Temp Pulse Resp BP Pulse Ox O2 Del Method 02/14/22 07:26 36.9 C 64 18 156/93 H 92 Room Air 02/14/22 02:43 36.6 C 68 17 153/91 H 98 Room Air 02/13/22 23:08 36.4 C L 63 18 168/92 H 98 Room Air 02/13/22 22:27 36.7 C 62 16 164/94 H 96 Room Air Laboratory Results Laboratory Results - last 24 hr 02/13/22 02/13/22 02/13/22 07:40 15:56 20:56 WBC RBC Hgb Hct MCV MCH MCHC RDW Std Deviation RDW Coeff of Olivia Plt Count MPV Sodium 125 L 125 L 126 L Potassium 3.7 3.7 Chloride 96 L 95 L Carbon Dioxide 20 L 22 Anion Gap 9 8 BUN 11 14 Creatinine 0.71 0.78 Est Cr Clr Drug Dosing 117.5 107.0 Est GFR ( Amer) 113.3 109.0 Est GFR (Non-Af Amer) 97.8 94.1 BUN/Creatinine Ratio 15.5 17.9 Glucose 125 H 149 H Calcium 9.3 8.9 Phosphorus 3.2 Magnesium 1.7 Total Bilirubin Direct Bilirubin AST ALT Alkaline Phosphatase Total Protein Albumin 4.3 Urine Osmolality 02/14/22 02/14/22 02/14/22 06:19 06:19 08:25 WBC 10.25 RBC 5.07 Hgb 15.1 Hct 41.7 MCV 82.2 MCH 29.8 MCHC 36.2 H RDW Std Deviation 42.4 RDW Coeff of Olivia 14.4 Plt Count 215 MPV 10.0 Sodium 130 L Potassium 3.8 Chloride 100 Carbon Dioxide 21 Anion Gap 9 BUN 17 Creatinine 0.73 Est Cr Clr Drug Dosing 114.3 Est GFR ( Amer) 112.0 Est GFR (Non-Af Amer) 96.7 BUN/Creatinine Ratio 23.3 H Glucose 113 H Calcium 9.4 Phosphorus Magnesium 1.8 Total Bilirubin 1.1 H Direct Bilirubin 0.3 H AST 98 H ALT 69 H Alkaline Phosphatase 101 Total Protein 8.5 H Albumin 4.3 Urine Osmolality 667 PG Care Time/CCT Total # of Minutes Spent Total Time Spent with Patient: Total time spent is greater than 50% in coordination of care (as documented) at patient's floor/unit and/or counseling patient: Coding Level of Care Code 89724 Subseq Hosp Care Lvl 3 Diagnoses Hyponatremia E87.1 Acute psychosis F23 Electrolyte abnormality E87.8 Bipolar 1 disorder F31.9
--- NOTE | 2022-02-14 11:47 | Communication Note ---
Date of Service: February 14, 2022 interim progress reviewed. Patient was walking the halls with staff on rounds. Hasn't required prns. Per nursing was more irritable this am than yesterday but redirectible. He is confused at times and fixated on but otherwise no acute agitation. Plan remains to return to the [facility] when medically cleared.
[2022-02-14] MEDS ORDERED: FUROSEMIDE 20 MG TAB PO ONE (14:33)
[2022-02-14 17:10] LABS: BUN Creatinine Ratio 24.7 (10-20); Calcium 9.8 mg/dl (8.5-10.1); Est GFR (African American) 107.3 ml/min; Est GFR (Non-African American) 92.6 ml/min; Potassium 4.6 mmol/L (3.5-5.1)
[2022-02-14] MEDS ORDERED: STAT IV STA (17:26)
[2022-02-14] MEDS ORDERED: SODIUM CHLORIDE 3 % 100 ML IV ONE (17:30)
--- NOTE | 2022-02-14 18:01 | Hospitalist Progress Note ---
Date of Service February 14, 2022 Assessment & Plan (1) Hyponatremia: Plan: 122 on admit, given NSS bolus -> reduced to 121 Initial low serum osmolality suggests low-solute diet, psychogenic polydipsia Suspect elevated urine Na on admission due to chlorthalidone use Should improve with fluid restriction and salt tabs, will defer hypertonic saline administration to nephrology Increasing urine osm suggests SIADH which would be the same treatment but should also respond favorably to Lasix - unclear why he would be developing this during the admission however. (2) Metabolic encephalopathy: Plan: Patient presented to ER from the [facility] after being found down and with emesis and altered mental status, with electrolyte derangements Suspect related to hyponatremia Ammonia 35 B12 1133 B1 pending -- started/continue empiric thiamine. TSH wnl/Ft4/t3 wnl Keppra ordered initially on admit, given IV d/t prior emesis, however, appears this has been recently started at [facility] with klonopin in place of temazepam and in patient w/ hx cirrhosis already and hyponatremia, suspect worsened both and contributed to LFT elevation on admit D/C further Alex She states he has had issues with this when they were younger ( 43 years) but had not had an issue prior to that for about 10 years and was actually quite stable on regimen as follows: * QAM : Topamax 100mg, Gabapentin 500mg, atorvastatin 30mg, chlorthalidone 25mg, metformin 500mg (pre-DM), meloxicam 15mg (for trigger finger) * Noon: MVI, Vitamin D 3, B complex * 5pm: gabapentin 600mg * HS: Topamax 100mg, gabapentin 600mg, depakote 500mg, seroquel 200mg, mag oxide 500mg, melatonin 15-18mg, and chlorpromazine 20-25mg as needed for emergency if not sleeping She notes issues w/ insomnia and had not been sleeping/decline starting over the summer and they were working with MD at [facility] to help since August She notes that they started him on ambien, but that they then changed to Temazepam 15mg which was not really helpful per her account. They then decided to add trazodone for sleep/anxiety/mood About 2 weeks ago, they were going to start [place] and taper him off the depakote but decided to start the lithium and continue that and depakote. Had been sleeping 1-2 hours at night, wetting the bed. She did note she returned a 400$ saw the past month, likely purchased during period of britta as well but states he really has been not quite right for a while She notes that prior Saturday he did appear more like himself but then declined and ultimately was getting very nasty with her verbally before going to the [facility] She also mentions that she herself is on ativan prn anxiety related to her husbands condition and that she has mentioned it to multiple providers but that they did not think that was warranted Continued inpatient stay, 1:1 for safety, planning on discharging to [facility] when Na stable Psych consulted -- appreciate recs/assistance Ativan available prn, melatonin added for sleep. Consider adding trazodone as started over summer but will do less for now to prevent further clouding of clinical picture. Decreased frequency of ativan to q4h They req records from [place] Appreciate continued assistance/recs (3) Acute psychosis: Plan: Appreciate psychiatry consult on ativan prn/melatonin for now (4) Insomnia: Plan: chronic issue, likely causing acute britta/psychosis reports sleeping 1-2 hours at night at a time Recently started temazepam outpatient but without much benefit, also had added trazodone which hasn't helped much either. melatonin HS had been tried in past as well inquiring about Ativan -- is available prn for any agitation/psychosis for time being and has been utilized of note they did give some Klonopin w/ Keppra at [facility] but patient reported continued poor sleep (5) Bipolar 1 disorder: Plan: hx of such -- see above regarding history from under #1 (6) HLD (hyperlipidemia): Plan: Continue atorvastatin (7) Pre-diabetes: Plan: HbA1C - 5.9 (8) Polydipsia: Plan: multifactorial, plan as above (9) Elevated LFTs: Plan: Suspect liver cirrhosis on liver US PTINR normal Plt 215 Will need follow up with gastroenterology (10) Hypertension: Plan: Per on chlorthalidone for years In system, did have slightly low Na back in 2019, probably not best choice for HTN for this patient given risk for hyponatremia to begin with along with other electrolyte abnormalities Added metoprolol 12.5mg BID 02/13 Add amlodipine 2.5mg PO starting tomorrow morning Plan VTE Prophylaxis - chemical prophylaxis deferred given mobility Diet - regular, fluid restrict 1200ml Disposition - planning on discharging back to [facility] once Na stable. Admission and Anticipated Discharge Date Admission Date: February 11, 2022 Subjective Refused furosemide this morning. He was unsure why we were giving him a diuretic in addition to a fluid restriction. Explained rational to the patient and family in room regarding SIADH/primary polydipsia diagnosis and management. Review of Systems Review of Systems: All systems reviewed & are unremarkable except as noted in Subjective Physical Exam Constitutional: WD/WN, vitals as above Respiratory: normal respiratory effort; no respiratory distress Auscultation: lungs clear to auscultation bilaterally Cardiovascular: RRR, no murmur, no edema Neurologic: moves all extremities, awake and + confused Psychiatric: Orientation: alert Eye Contact: + poor eye contact Speech: + pressured speech and + loud speech Affect: + anxious affect Mood: + anxious mood Thought Process: + flight of ideas Results & Data Results & Data ([facility]) Vital Signs (Past 12 Hours) Vital Signs Temp Pulse Resp BP Pulse Ox O2 Del Method 02/14/22 14:04 36.6 C 67 16 173/88 H 94 Room Air 02/14/22 07:26 36.9 C 64 18 156/93 H 92 Room Air PG Care Time/CCT Total # of Minutes Spent Total Time Spent with Patient: Total time spent is greater than 50% in coordination of care (as documented) at patient's floor/unit and/or counseling patient: Coding Level of Care Code 85568 Subseq Hosp Care Lvl 2 Diagnoses Hyponatremia E87.1 Metabolic encephalopathy G93.41 Acute psychosis F23 Insomnia G47.00 Bipolar 1 disorder F31.9 HLD (hyperlipidemia) E78.5 Pre-diabetes R73.03 Polydipsia R63.1 Elevated LFTs R79.89 Hypertension I10
[2022-02-14] MEDS: ACETAMINOPHEN 325 MG TAB PO PRN (20:46)
[2022-02-14] MEDS: ATORVASTATIN 40 MG TAB PO SCH (20:49)
[2022-02-15] MEDS: ACETAMINOPHEN 325 MG TAB PO PRN (03:30)
[2022-02-15 08:44] LABS: BUN Creatinine Ratio 28.2 (10-20); Calcium 9.3 mg/dl (8.5-10.1); Creatinine Clr Calc Pharmacy 98.2 ml/min; Est GFR (African American) 105.2 ml/min; Est GFR (Non-African American) 90.8 ml/min; Potassium 3.7 mmol/L (3.5-5.1)
[2022-02-15] MEDS: SODIUM CHLORIDE 1 GM TABLET PO SCH ×2 (09:48→20:26)
[2022-02-15] MEDS: THIAMINE HCL 100 MG TAB PO SCH ×2 (09:48→20:28)
[2022-02-15] MEDS: METOPROLOL TARTRATE 25 MG TAB PO SCH ×2 (09:48→20:26)
[2022-02-15] MEDS: lisinopril 10 MG TAB PO SCH (09:48)
[2022-02-15] MEDS: FUROSEMIDE 20 MG TAB PO SCH (09:49)
[2022-02-15] MEDS: allopurinoL 100 MG TAB PO SCH (09:49)
[2022-02-15] MEDS: DOCUSATE SODIUM/SENNA 50/8.6MG TAB PO SCH (09:49)
--- NOTE | 2022-02-15 11:26 | Nephrology Progress Note ---
Date of Service February 15, 2022 Assessment & Plan (1) Hyponatremia: Plan: Attributed to polydipsia, hypokalemia, and chlorthalidone on admission. Chlorthalidone has been appropriately held. Initially, U osm was 141 and more recently >600. Now demonstrating SIADH of unclear etiology. Volume status has remained relatively euvolemic. He has been maintained on a 1.2 L daily fluid restriction which was reduced to 1 L this AM. KCl 20 mEq and oral NaCl 2 grams provided this AM. PO furosemide also ordered. Repeat sodium ordered for this afternoon. Document I/O's. (2) Acute psychosis: Plan: Remains off psychiatric medications. I do not have a great explanation for the etiology of ADH production. (3) Electrolyte abnormality: Plan: Encourage nutrition. Additional KCl 20 mEq provided this AM. (4) Bipolar 1 disorder: (5) Hypertension: Plan: BP reasonably controlled with lisinopril and amlodipine as Rx. Increased amlodipine PRN. Furosemide encouraged this AM. Admission and Anticipated Discharge Date Admission Date: February 11, 2022 Hermelinda Land was sitting in bed and talking on the phone this morning. He had no acute complaints but I was not able to exam or engage in conversation. He told me that I can come back later when he is free. He refused furosemide yesterday AM but was planning to take medications as prescribed this AM. Review of Systems Review of Systems: Unobtainable due to cognitive status (patient provided very limited ROS for me this morning ) Physical Exam Constitutional: well developed; no acute distress Eyes: + anicteric sclerae; no corneal abnormality Neck: normal visual inspection and trachea midline Respiratory: normal respiratory effort Cardiovascular: Rate/Rhythm: regular rate Extremities: no edema Musculoskeletal: Extremities: no cyanosis and no clubbing Skin: + turgor decreased; no jaundice Neurologic: Motor/Sensory: + tremor; no asterixis Psychiatric: Orientation: alert and cooperative Speech: + pressured speech Affect: + elated affect Results & Data ([facility]) Vital Signs (Past 12 Hours) Vital Signs Temp Pulse Resp BP BP Pulse Ox O2 Del Method 02/15/22 11:17 36.8 C 72 18 159/83 H 96 Room Air 02/15/22 09:04 36.5 C 68 18 136/91 96 Room Air 02/15/22 04:10 36.7 C 71 16 175/111 H 98 Room Air Laboratory Results Laboratory Results - last 24 hr 02/14/22 02/15/22 16:22 07:32 Sodium 129 L 128 L Potassium 4.6 D 3.7 Chloride 98 98 Carbon Dioxide 23 22 Anion Gap 8 8 BUN 20 24 H Creatinine 0.81 0.85 Est Cr Clr Drug Dosing 103.0 98.2 Est GFR ( Amer) 107.3 105.2 Est GFR (Non-Af Amer) 92.6 90.8 BUN/Creatinine Ratio 24.7 H 28.2 H Glucose 133 H 156 H Calcium 9.8 9.3 PG Care Time/CCT Total # of Minutes Spent Total Time Spent with Patient: Total time spent is greater than 50% in coordination of care (as documented) at patient's floor/unit and/or counseling patient: Coding Level of Care Code 06776 Subseq Hosp Care Lvl 3 Diagnoses Hyponatremia E87.1 Acute psychosis F23 Electrolyte abnormality E87.8 Bipolar 1 disorder F31.9 Hypertension I10
[2022-02-15] MEDS ORDERED: POTASSIUM CHLORIDE CRTAB 20 MEQ TABCR PO STA (11:27)
[2022-02-15] MEDS: amLODIPine BESYLATE 5 MG TAB PO SCH (11:58)
--- NOTE | 2022-02-15 19:40 | CT Scan Report ---
CT chest diagnostic wo con CLINICAL HISTORY: SIADH; ex-tobacco user; eval lung ca/nodules TECHNIQUE: Multidetector row helical CT of the chest was performed. Coronal and sagittal reformations were obtained. Automated dose lowering techniques and/or adjustment according to patient size were u tilized for this exam. CT DOSE: 501.50 mGy.cm Comparison: Comparison is made to chest radiograph 02/10/2022 FINDINGS: Exam is limited by patient motion. Lungs and pleura: No suspicious pulmonary nodules are seen. Biapical scarring and mild paraseptal emp hysema are noted. Heart and pericardium: Mitral annular calcifications are seen. Vessels: Moderate atherosclerotic changes in the aorta and coronary arteries. Mediastinum and jessica: Subcentimeter lymph nodes are seen. Chest wall and lower neck: Unremarkable. Abdomen: Calcifications are seen in the aorta and its branches. Bones: Degenerative changes in the thoracic spine. IMPRESSION: Limited exam without evidence of suspicious pulmonary nodules. Recommend evaluation for eligibility f or low-dose lung cancer screening program. ACT 112: Negative or not required by law. Electronically signed by: Valentino Harvey M.D. 02/15/2022 7:38 PM
[2022-02-15] MEDS: ATORVASTATIN 40 MG TAB PO SCH (20:27)
--- NOTE | 2022-02-15 21:27 | Hospitalist Progress Note ---
Date of Service February 15, 2022 Assessment & Plan (1) Hyponatremia: Plan: 122 on admit Initial low serum osmolality suggested low-solute diet, psychogenic polydipsia Later on his urine osm was then much higher (667) suggesting SIADH of uncertain etiology Now on fluid restriction, salt tabs, and low-dose lasix Appreciate nephrology consultation and assistance Due to HEAVY prior tobacco use will get non-contrast chest CT to r/o lung ca Also, with prior h/o pituitary adenoma, need to work up adrenal insufficiency? consider cortisol level if Na level is refractory (although high BPs would argue against adrenal insufficiency) serial BMPs (2) Metabolic encephalopathy: Plan: Patient presented to ER from the [facility] after being found down and with emesis and altered mental status, with electrolyte derangements Suspect altered MS was 2nd to hyponatremia Ammonia 35 B12 1133 B1 pending -- started/continue empiric thiamine. TSH wnl/Ft4/t3 wnl Mental status seems improved from admission BMP in am (3) Acute psychosis: Plan: Continued inpatient stay, 1:1 for safety, planning on discharging to [facility] when Na stable Psych consulted -- appreciate recs/assistance Ativan available prn, melatonin added for sleep. 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 (10) Hypertension: Plan: Cont metoprolol 12.5mg BID Cont amlodipine 2.5mg daily Cont lisinopril 10mg daily Consider clonidine as above (11) Weight loss: Plan: [address] - r/o lung ca at his request will check Lyme screen (12) Severe protein-calorie malnutrition: Plan: can't confirm what prior weights were but he reports 40 pounds of weight loss in light of heavy tobacco dependence checking chest CT will need other w/u as outpatient if chest CT is negative (13) Former heavy tobacco smoker: Plan: as above Admission and Anticipated Discharge Date Admission Date: February 11, 2022 Subjective patient walking the hallways in good spirits main complaint is sleep - can't fall asleep or stay asleep this is chronic problem he asks if he can be screened for Lyme disease [place] and [place] he mentions losing 40 pounds over the last year; unintentional used to smoke 3-4 packs of cigarettes/day mentions he had what sounds like a pituitary adenoma many years ago that was treated medicinally Review of Systems Review of Systems: cv - no chest pain pulm - no dyspnea GI - no pain gen - eating well despite the weight loss Physical Exam Physical Exam: gen - NAD, pleasant neuro - mild tremor noted mouth - MMM heart - RRR, s1 s2 lungs - CTA b/l abd - soft, NT, ND, BS+, no HSM ext - no edema, pulses 2+ b/l psych - awake, alert, hyperactive but not manic; no psychosis Results & Data Results & Data ([facility]) Vital Signs (Past 12 Hours) Vital Signs Temp Pulse Resp BP Pulse Ox O2 Del Method 02/15/22 15:48 36.6 C 73 18 147/88 H 99 Room Air 02/15/22 11:17 36.8 C 72 18 159/83 H 96 Room Air Laboratory Results Laboratory Results - last 24 hr 02/15/22 02/15/22 07:32 14:13 Sodium 128 L 129 L Potassium 3.7 Chloride 98 Carbon Dioxide 22 Anion Gap 8 BUN 24 H Creatinine 0.85 Est Cr Clr Drug Dosing 98.2 Est GFR ( Amer) 105.2 Est GFR (Non-Af Amer) 90.8 BUN/Creatinine Ratio 28.2 H Glucose 156 H Calcium 9.3 PG Care Time/CCT Total # of Minutes Spent Total Time Spent with Patient: Total time spent is greater than 50% in coordination of care (as documented) at patient's floor/unit and/or counseling patient: Coding Level of Care Code 37191 Subseq Hosp Care Lvl 3 Diagnoses Hyponatremia E87.1 Metabolic encephalopathy G93.41 Acute psychosis F23 Insomnia G47.00 Bipolar 1 disorder F31.9 HLD (hyperlipidemia) E78.5 Pre-diabetes R73.03 Polydipsia R63.1 Elevated LFTs R79.89 Hypertension I10 Weight loss R63.4 Severe protein-calorie malnutrition E43 Former heavy tobacco smoker Z87.891
[2022-02-16] MEDS: THIAMINE HCL 100 MG TAB PO SCH ×2 (08:36→21:09)
[2022-02-16] MEDS: DOCUSATE SODIUM/SENNA 50/8.6MG TAB PO SCH (08:37)
[2022-02-16] MEDS: FUROSEMIDE 20 MG TAB PO SCH (08:37)
[2022-02-16] MEDS: lisinopril 10 MG TAB PO SCH (08:37)
[2022-02-16] MEDS: allopurinoL 100 MG TAB PO SCH (08:38)
[2022-02-16] MEDS: SODIUM CHLORIDE 1 GM TABLET PO SCH ×2 (08:38→21:08)
[2022-02-16 09:55] LABS: Albumin Level 4.4 gm/dl (3.4-5.0); BUN Creatinine Ratio 41.3 (10-20); Bilirubin Direct 0.3 mg/dl (0-0.2); Bilirubin,Total 1.1 mg/dl (0.2-1.0); Calcium 9.3 mg/dl (8.5-10.1); Creatinine Clr Calc Pharmacy 90.7 ml/min; Est GFR (African American) 100.1 ml/min; Est GFR (Non-African American) 86.4 ml/min; Potassium 3.8 mmol/L (3.5-5.1); Total Protein 8.5 gm/dl (6.0-8.3)
[2022-02-16 10:11] LABS: Lyme Ab IgG w/WB Rflx Negative (Negative)
--- NOTE | 2022-02-16 10:11 | Nephrology Progress Note ---
Date of Service February 16, 2022 Assessment & Plan (1) Hyponatremia: Plan: Attributed to polydipsia, hypokalemia, and chlorthalidone on admission. Chlorthalidone has been held. Serum sodium improving with fluid restriction, PO NaCl, and furosemide. Emery was not 100% adherent with fluid restriction yesterday. Will continue furosemide 20 mg daily and oral NaCl 2 gm BID with close follow up. (2) Bipolar 1 disorder: Plan: Appreciate psych assistance. From a nephrology standpoint, Emery is stable for discharge back to the [facility] with close outpatient follow up. Assuming a reasonable free water restriction can be maintained and close monitoring of labs is provided. (3) Hypertension: Plan: BP reasonably controlled with lisinopril and amlodipine as Rx. Increased amlodipine PRN. Continue furosemide as Rx. Admission and Anticipated Discharge Date Admission Date: February 11, 2022 Subjective No acute events overnight. Walking in the hallway this AM. No complaints. Review of Systems Review of Systems: All systems reviewed & are unremarkable except as noted in HPI & below Physical Exam Constitutional: well developed; no acute distress Eyes: + anicteric sclerae; no scleral abnormality and no corneal abnormality Neck: normal visual inspection and trachea midline Respiratory: normal respiratory effort Auscultation: lungs clear to auscultation bilaterally Cardiovascular: Rate/Rhythm: regular rate Heart Sounds: normal S1 and normal S2 Extremities: no edema Musculoskeletal: Extremities: no cyanosis and no clubbing Skin: normal turgor; no jaundice Neurologic: Motor/Sensory: + tremor; no asterixis Psychiatric: Orientation: alert and cooperative Results & Data ([facility]) Vital Signs (Past 12 Hours) Vital Signs Temp Pulse Resp BP BP Pulse Ox O2 Del Method 02/16/22 08:09 37.5 C 82 18 185/96 H 100 Room Air 02/15/22 23:00 37.2 C 71 18 141/78 H 93 Room Air 02/15/22 22:30 Room Air Laboratory Results Laboratory Results - last 24 hr 02/15/22 02/16/22 02/16/22 14:13 08:22 08:22 Sodium 129 L 133 L Potassium 3.8 Chloride 102 Carbon Dioxide 22 Anion Gap 9 BUN 38 H Creatinine 0.92 Est Cr Clr Drug Dosing 90.7 Est GFR ( Amer) 100.1 Est GFR (Non-Af Amer) 86.4 BUN/Creatinine Ratio 41.3 H Glucose 132 H Calcium 9.3 Total Bilirubin 1.1 H Direct Bilirubin 0.3 H AST 100 H ALT 83 H Alkaline Phosphatase 109 H Total Protein 8.5 H Albumin 4.4 Lyme Disease IgG Ab Pending Lyme Disease IgM Ab Pending PG Care Time/CCT Total # of Minutes Spent Total Time Spent with Patient: Total time spent is greater than 50% in coordination of care (as documented) at patient's floor/unit and/or counseling patient: Coding Level of Care Code 79060 Subseq Hosp Care Lvl 3 Diagnoses Hyponatremia E87.1 Bipolar 1 disorder F31.9 Hypertension I10
[2022-02-16 10:12] LABS: Lyme Ab IgM w/WB Rflx Negative (Negative)
[2022-02-16] MEDS: METOPROLOL TARTRATE 25 MG TAB PO SCH ×2 (10:15→21:09)
[2022-02-16] MEDS: amLODIPine BESYLATE 5 MG TAB PO SCH (11:17)
[2022-02-16] MEDS: LORazepam 1 mg IV INJ IV PRN ×2 (13:40→23:21)
--- NOTE | 2022-02-16 20:19 | Hospitalist Progress Note ---
Date of Service February 16, 2022 Assessment & Plan (1) Hyponatremia: Plan: 122 on admit Now 133 today Initial low serum osmolality suggested low-solute diet, psychogenic polydipsia Later on his urine osm was then much higher (667) suggesting SIADH of uncertain etiology Now on fluid restriction, salt tabs, and low-dose lasix Appreciate nephrology consultation and assistance Due to HEAVY prior tobacco I obtained chest CT to r/o lung ca -- none seen Also, with prior h/o pituitary adenoma, will check an AM cortisol to be complete clinical picture, however, is not c/w adrenal insufficiency repeat BMP am (2) Metabolic encephalopathy: Plan: [facility] being [facility] and with emesis and altered mental status, with electrolyte derangements Suspect altered MS was 2nd to hyponatremia Ammonia 35 B12 1133 B1 pending -- started/continue empiric thiamine. TSH wnl/Ft4/t3 wnl Mental status improved, but patient now with significant hyperactivity, delusi ons, etc - likely psychiatrically based from his bipolar d/o, etc BMP in am (3) Acute psychosis: Plan: Continued inpatient stay and planning on discharging to [facility] when Na stable -- perhaps d/c to [facility] 02/17?? 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 (10) Hypertension: Plan: Cont metoprolol 12.5mg BID Cont amlodipine 2.5mg daily Cont lisinopril 10mg daily Consider clonidine as above (11) Weight loss: Plan: [address] - no nodules to suggest lung ca check AM cortisol at his request checked Lyme screen -- negative will need outpatient w/u for this issue with his PCP (12) Severe protein-calorie malnutrition: Plan: can't confirm what prior weights were but he reports 40 pounds of weight loss in light of heavy tobacco dependence in the past checked CT chest - negative (13) Former heavy tobacco smoker: Plan: as above (14) Electrolyte abnormality: Plan: Low K - resolved Low mag - resolved Low Na - marked improvement (15) Abnormal finding on CT scan: Plan: 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 CTA head did NOT show aneurysm this finding on CT - pituitary adenoma?? consider MRI brain - pituitary protocol - could do this as outpatient TSH/FT4 wnl Check AM cortisol Plan DVT proph - low risk - walking the hallways ALL day - defer on chemical means d/c to [facility] tomorrow ?? 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" he also offered a variety of other things that did not make sense and seemed unbelievable I explained to him that his Lyme test was negative and his CT chest did not show any lung cancer he expressed relief hearing this states he slept maybe 3-4 hours overnight but no more than that Review of Systems Review of Systems: cv - no chest pain with exertion neuro - no dizziness pulm - no dyspnea on exertion GI - no abd pain, nausea or emesis Physical Exam Physical Exam: gen - NAD, pleasant and cooperative but with significant delusions neuro - mild tremor noted mouth - MMM heart - RRR, s1 s2, no murmur lungs - CTA b/l abd - soft, NT, ND, BS+, no HSM ext - no edema, pulses 2+ b/l psych - awake, alert, hyperactive; delusional today, ?confabulating as well? Results & Data Results & Data ([facility]) Vital Signs (Past 12 Hours) Vital Signs Temp Pulse Resp BP Pulse Ox O2 Del Method 02/16/22 14:52 36.7 C 72 18 138/75 96 Room Air Laboratory Results Laboratory Results - last 24 hr 02/16/22 02/16/22 08:22 08:22 Sodium 133 L Potassium 3.8 Chloride 102 Carbon Dioxide 22 Anion Gap 9 BUN 38 H Creatinine 0.92 Est Cr Clr Drug Dosing 90.7 Est GFR ( Amer) 100.1 Est GFR (Non-Af Amer) 86.4 BUN/Creatinine Ratio 41.3 H Glucose 132 H Calcium 9.3 Total Bilirubin 1.1 H Direct Bilirubin 0.3 H AST 100 H ALT 83 H Alkaline Phosphatase 109 H Total Protein 8.5 H Albumin 4.4 Lyme Disease IgG Ab Negative Lyme Disease IgM Ab Negative Diagnostic Findings CT chest - no lung nodules PG Care Time/CCT Total # of Minutes Spent Total Time Spent with Patient: Total time spent is greater than 50% in coordination of care (as documented) at patient's floor/unit and/or counseling patient: Coding Level of Care Code 60912 Subseq Hosp Care Lvl 3 Diagnoses Hyponatremia E87.1 Metabolic encephalopathy G93.41 Acute psychosis F23 Insomnia G47.00 Bipolar 1 disorder F31.9 HLD (hyperlipidemia) E78.5 Pre-diabetes R73.03 Polydipsia R63.1 Elevated LFTs R79.89 Hypertension I10 Weight loss R63.4 Severe protein-calorie malnutrition E43 Former heavy tobacco smoker Z87.891 Electrolyte abnormality E87.[address] scan R93.89
[2022-02-16] MEDS ORDERED: QUEtiapine FUMARATE 100 MG TABLET PO SCH (21:00)
[2022-02-16] MEDS: ATORVASTATIN 40 MG TAB PO SCH (21:08)
[2022-02-17] MEDS ORDERED: LORazepam 2 MG/1 ML VIAL IV STA (00:44)
[2022-02-17] MEDS: LORazepam 1 mg IV INJ IV PRN (04:20)
[2022-02-17] MEDS ORDERED: QUEtiapine FUMARATE 100 MG TABLET PO STA (07:39)
[2022-02-17] MEDS ORDERED: OLANZapine 10 MG/2.1 ML SDV IM STA (07:57)
--- NOTE | 2022-02-17 08:00 | Hospitalist Progress Note ---
Date of Service February 17, 2022 Assessment & Plan (1) Hyponatremia: Plan: 122 on admit Now 133 today Initial low serum osmolality suggested low-solute diet, psychogenic polydipsia Later on his urine osm was then much higher (667) suggesting SIADH of uncertain etiology Now on fluid restriction, salt tabs, and low-dose lasix Appreciate nephrology consultation and assistance Due to HEAVY prior tobacco I obtained chest CT to r/o lung ca -- none seen Also, with prior h/o pituitary adenoma, will check an AM cortisol to be complete clinical picture, however, is not c/w adrenal insufficiency repeat BMP am (2) Metabolic encephalopathy: Plan: Patient presented to ER from the [facility] after being found down and with emesis and altered mental status, with electrolyte derangements Suspect altered MS was 2nd to hyponatremia Ammonia 35 B12 1133 B1 pending -- started/continue empiric thiamine. TSH wnl/Ft4/t3 wnl Mental status improved, but patient now with significant hyperactivity, delusi ons, etc - likely psychiatrically based from his bipolar d/o, etc BMP in am (3) Acute psychosis: Plan: Continued inpatient stay and planning on discharging to [facility] when Na stable -- perhaps d/c to [facility] 02/17?? 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 (10) Hypertension: Plan: Cont metoprolol 12.5mg BID Cont amlodipine 2.5mg daily Cont lisinopril 10mg daily Consider clonidine as above (11) Weight loss: Plan: [address] - no nodules to suggest lung ca check AM cortisol at his request checked Lyme screen -- negative will need outpatient w/u for this issue with his PCP (12) Severe protein-calorie malnutrition: Plan: can't confirm what prior weights were but he reports 40 pounds of weight loss in light of heavy tobacco dependence in the past checked CT chest - negative (13) Former heavy tobacco smoker: Plan: as above (14) Electrolyte abnormality: Plan: Low K - resolved Low mag - resolved Low Na - marked improvement (15) Abnormal finding on CT scan: Plan: 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 CTA head did NOT show aneurysm this finding on CT - pituitary adenoma?? consider MRI brain - pituitary protocol - could do this as outpatient TSH/FT4 wnl Check AM cortisol Plan DVT proph - low risk - walking the hallways ALL day - defer on chemical means d/c to [facility] tomorrow ?? Admission and Anticipated Discharge Date Admission Date: February 11, 2022 Results & Data Results & Data ([facility]) Vital Signs (Past 12 Hours) Vital Signs Pulse BP 02/16/22 21:00 81 126/82 PG Care Time/CCT Total # of Minutes Spent Total Time Spent with Patient: Total time spent is greater than 50% in coordination of care (as documented) at patient's floor/unit and/or counseling patient: Coding Diagnoses Hyponatremia E87.1 Metabolic encephalopathy G93.41 Acute psychosis F23 Insomnia G47.00 Bipolar 1 disorder F31.9 HLD (hyperlipidemia) E78.5 Pre-diabetes R73.03 Polydipsia R63.1 Elevated LFTs R79.89 Hypertension I10 Weight loss R63.4 Severe protein-calorie malnutrition E43 Former heavy tobacco smoker Z87.891 Electrolyte abnormality E87.[address] scan R93.89
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
[2022-02-17] MEDS ORDERED: HALOPERIDOL LACTATE 5 MG/ML 1 ML VIAL IM STA (08:59)
[2022-02-17] MEDS ORDERED: HALOPERIDOL LACTATE 5 MG/ML 1 ML VIAL ONE (09:01)
--- NOTE | 2022-02-17 09:04 | Nephrology Progress Note ---
Date of Service February 17, 2022 Assessment & Plan (1) Hyponatremia: Plan: * Attributed to polydipsia, hypokalemia, and chlorthalidone on admission. Chlorthalidone has been held. Serum sodium improving with fluid restriction, PO NaCl, and furosemide * Continue furosemide 20 mg daily and oral NaCl 2 gm BID * Continue 1.5 L free water restriction/day * If discharge is anticipated please have patient follow up w/ Dr. Bernal in 7 - 10 days ([phone]) (2) Bipolar 1 disorder: Plan: * From a nephrology standpoint, Mr. Perez is stable for either ongoing inpatient psychiatric care or discharge back to the [facility] (3) Hypertension: Plan: * BP well controlled with lisinopril and amlodipine * Continue furosemide to help maintain serum sodium within acceptable limits Admission and Anticipated Discharge Date Admission Date: February 11, 2022 Subjective Mr. Perez was evaluated in his hospital room this morning. nursing staff development coordinator reports that he was agitated last evening and now requires a sitter. He voiced no medic al concerns this am but repeatedly asked if I was going to take him swimming today Review of Systems Review of Systems: Unobtainable due to cognitive status Physical Exam Constitutional: agitated Eyes: PERRL, conjunctivae normal, anicteric sclerae ENMT: external ear and nose normal, oropharynx normal Neck: trachea midline, no thyromegaly Respiratory: normal respiratory effort, lungs clear to auscultation Cardiovascular: RRR, no murmur, no edema Gastrointestinal (Abdomen): normal bowel sounds, soft, nontender, no hepatosplenomegaly Psychiatric: Affect: + anxious affect Thought Process: + flight of ideas Results & Data ([facility]) Laboratory Results Laboratory Tests 02/17/22 08:51 Sodium 133 L Potassium 4.5 Chloride 103 Carbon Dioxide 20 L BUN 51 H Creatinine 0.95 Calcium 9.5 Coding Level of Care Code 33005 Subseq Hosp Care Lvl 3 Diagnoses Hyponatremia E87.1 Bipolar 1 disorder F31.9 Hypertension I10
[2022-02-17 09:30] LABS: BUN Creatinine Ratio 53.7 (10-20); Calcium 9.5 mg/dl (8.5-10.1); Creatinine Clr Calc Pharmacy 87.8 ml/min; Est GFR (African American) 96.3 ml/min; Est GFR (Non-African American) 83.1 ml/min; Potassium 4.5 mmol/L (3.5-5.1)
--- NOTE | 2022-02-17 10:25 | Communication Note ---
Date of Service: February 17, 2022 patient increasingly restless and disruptive on the medical floor given his fluid restriction, wandering into other rooms, received seroquel last pm for increase in delusions, this am was removing/throwing medical equipment and trying to sell a wheelchair. Has recieved IM Zyprexa 5 with little benefit, Haldol IM 5 mg at my direction and floor administered IV Ativan with no evidence of sedation. He is currently in room checking cabinets with security at bedside. 302 petitioning statement by nurse, 302 warrant in process. Discussed BUN/Cr ratio and fluid restriction needs with Julia Power PA-C in preparation for transfer to on 302 commitment when bed available given ongoing medical monitoring necessary for resolving hyponatremia.
[2022-02-17] MEDS: allopurinoL 100 MG TAB PO SCH (10:44)
[2022-02-17] MEDS: SODIUM CHLORIDE 1 GM TABLET PO SCH (10:45)
[2022-02-17] MEDS: THIAMINE HCL 100 MG TAB PO SCH (10:45)
[2022-02-17] MEDS: amLODIPine BESYLATE 5 MG TAB PO SCH (10:45)
[2022-02-17] MEDS: FUROSEMIDE 20 MG TAB PO SCH (10:45)
[2022-02-17] MEDS: lisinopril 10 MG TAB PO SCH (10:45)
[2022-02-17] MEDS: DOCUSATE SODIUM/SENNA 50/8.6MG TAB PO SCH (10:46)
[2022-02-17] MEDS: METOPROLOL TARTRATE 25 MG TAB PO SCH (10:46)
--- NOTE | 2022-02-17 10:47 | Discharge Summary ---
Date of Service February 17, 2022 Admission HPI Per Admitting Provider Emery Perez is a 66yo male with history of Bipolar presenting from [facility] with increased confusion. Patient has been at [facility] for several days for delusions. Tonight he was reportedly found in his room on the floor with vomit. He was unresponsive and hypotensive. When he woke up his speech was slightly slurred. EMS was called and did not note these findings. Patient refusing exam and workup here in ER until he got a glass of water. He answers only to the name "Pawan" and "Dean Jones". Slightly agitated in the ER - was given Ativan prior to my assessment. Resting comfortably. Patient does not provide additional history at this time due to sleepiness. Admission Exam Per Admitting Provider Physical Exam: General: patient resting comfortably, NAD, non-toxic in appearance Skin: warm, dry, intact, no rashes or lesions HEENT: NC/AT, PERRL, EOMI, anicteric sclera, conjunctiva without injection, external ear normal to inspection and nontender, nares patent, moist mucus membranes, dentition intact, no oropharyngeal lesions, neck supple, trachea midline, no LAD, no thyromegaly, no JVD Heart: +S1/S2, regular, no m/r/g Lungs: equal air entry bilaterally, no rales/rhonchi/wheezes Abd: +BS, soft, NT/ND, no masses/organomegaly/ascites Ext: warm, 2+ pulses in UE/LE bilaterally, no clubbing/cyanosis or edema Principal Diagnosis Psychosis, Hyponatremia Discharge Data Allergies Allergy/AdvReac Type Severity Reaction Status Date / Time diphenhydramine Allergy Unknown Unknown Verified 02/11/22 01:31 guaifenesin Allergy Unknown Unknown Verified 02/11/22 01:31 ibuprofen Allergy Unknown Unknown Verified 02/11/22 01:31 pseudoephedrine Allergy Unknown Unknown Verified 02/11/22 01:31 Consultations 02/11/22 01:17 ED Decision to Admit Stat 02/11/22 04:57 Consult Psychiatry Routine 02/11/22 09:37 Consult Nephrology Routine Ordered Studies 02/10/22 23:06 CT head/brain wo con Stat 02/11/22 09:39 CTA head wo/w [CT angio head wo/w] Urgent 02/12/22 09:15 US abdomen ltd ascites Routine US liver Routine 02/15/22 18:02 CT chest diagnostic wo con Routine Hospital Course (1) Hyponatremia: Patient presented to ER from the [facility] after being found down and with emesis and altered mental status, with electrolyte derangements including Na 122, K 2.8, mag 1.6 Na 122 (133 on d/c to [facility] 02/06), K 2.8, Mag 1.6 No EKG on admit,decision to move to telemetry for closer monitoring this morning, donavan given reports emesis (KUB checked, no obstruction). Has been NSR w/ ectopy (has tremor, baseline and chronic per patient and reported as hereditary, however no tremor on exam today) Given ativan on admit CT head negative on admit but did show10 mm ovoid nodule in the suprasellar region located adjacent to the tip of the basilar. This may represent aneurysm, and correlation with a CT angiogram of the brain is recommended for further assessment. CTA for further eval : No acute intracranial hemorrhage, evidence of acute territorial infarction, or other acute intracranial disease process. No occlusion, hemodynamically significant stenosis, aneurysm, dissection, or arteriovenous malformation in the major intracranial arteries. In particular, no basilar tip aneurysm is seen, the radiodensity in the anterior shiloh is not vascular in character. Checked additional labs: Ammonia 35, B12 1133, B1 pending -- started/continue empiric thiamine, B1 pending at d/c TSH wnl/Ft4/t3 wnl (had been elevated to 5.074 02/06, ?acute from recent lithium use earlier in the month?) Keppra ordered initially on admit, given IV d/t prior emesis, however, appears this had been recently started at [facility] with klonopin in place of temazepam and in patient w/ hx cirrhosis already and hyponatremia, suspect worsened both and contributed to LFT elevation on admit--> D/C further Keppra US Liver/abd w/o ascites/sonu given LFTs to r/o other causes (note slight dilation CBD), nontender on exam CT chest w/o lung ca Also hx pituitary adedoma -- cortisol now low/elevated -- 14 Consultation with Nephrology Initial low serum Osm suggested low-solute diet, psychogenic polydipsia Fluid restriction, NaCl tablets, repeat urine OSM much higher, suggestive SIADH of uncertain etiology Discussed with nephrology, Expected rise in BUN given fluid restriction, however Na improved to 133 on labs and to continue 1500ml/day fluid restriction, 2gm NaCl BID as well as lasix 20mg PO daily Will need continue monitoring of labs daily vs Qo2 and adjustments/recommendations to follow. D/c chlorthiadone at d/c to prevent worsening hyponatremia Discussed w/ psych -- has continued leaving room/getting water from bathrooms and should ideally be in locked unit and medications adjusted for underlying bipolar vs schizoaffective Background [employer] Of note, discussed with his on phone after I picked him up, who was unaware patient was not at the [facility], and stated patient had been hospitalized in 2019 after stressful trip to [place] w/ episode of Britta and was transferred to [facility] inpatient psych for treatment She states he has had issues with this when they were younger ( 43 years) but had not had an issue prior to that for about 10 years and was actually quite stable on regimen as follows: * QAM : Topamax 100mg, Gabapentin 500mg, atorvastatin 30mg, chlorthalidone 25mg, metformin 500mg (pre-DM), meloxicam 15mg (for trigger finger) * Noon: MVI, Vitamin D 3, B complex * 5pm: gabapentin 600mg * HS: Topamax 100mg, gabapentin 600mg, depakote 500mg, seroquel 200mg, mag oxide 500mg, melatonin 15-18mg, and chloropromazine 20-25mg as needed for emergency if not sleeping She notes issues w/ insomnia and had not been sleeping/decline starting over the summer and they were working with MD at [facility] to help since August She notes that they started him on ambien, but that they then changed to Temazepam 15mg which was not really helpful per her account. They then decided to add trazodone for sleep/anxiety/mood In September/October 2021 was seen by heme/onc (denies ca diagnosis, but mentions something having to do with his liver but not entirely sure) and was started on allopurinol 100mg daily along with biotin as he was having issues with his nails and biting them. PCP is Dr Morgan at [facility] About 2 weeks ago, they were going to start [place] and taper him off the depakote but decided to start the lithium and continue that and depakote. Had been sleeping 1-2 hours at night, wetting the bed. ?DI from the lithium She did note she returned a 400$ saw the past month, likely purchased during period of britta as well but states he really has been not quite right for a while She notes that prior Saturday he did appear more like himself but then declined and ultimately was getting very nasty with her verbally before going to the [facility] She also mentions that she herself is on ativan prn anxiety related to her husbands condition and that she has mentioned it to multiple providers but that they did not think that was warranted Discussed with Na level could be multifactorial/increased free water/medications w/ psych meds/chlorthalidone use Seizure precautions in place given hyponatremia -- per patient, confirmed with , no known seizure activity (2) Metabolic encephalopathy: Patient presented to ER from the [facility] after being found down and with emesis and altered mental status, with electrolyte derangements Suspect altered MS was 2nd to hyponatremia Ammonia 35 B12 1133 B1 pending -- started/continue empiric thiamine. TSH wnl/Ft4/t3 wnl Mental status improved, but patient now with significant hyperactivity, delusions, etc - likely psychiatrically based from his bipolar d/o, etc Continue to monitor BMP even at [facility] Given Zyprexa 5mg IM AM, Haldol following and seroquel as ordered this moring and patient more calm but requiring attention to psych meds/psychosis. ?schizoaffective (3) Acute psychosis: Continued inpatient stay and planning on discharging to [facility] when Na stable -- perhaps d/c to [facility] 02/17?? Psych consulted -- appreciate recs/assistance Resumed seroquel 100mg HS -- titrate per psych on U, additional dose given this morning w/ haldol/zyprexa (4) Insomnia: chronic issue - suspect due to bipolar disorder defer Rx to psych could consider clonidine HS for BP & sleep if BPs continue to remain high (5) Bipolar 1 disorder: Rx at [facility] post-discharge --> decision to move inpatient here given medical c omplexity/continued monitoring Na/adjustment of sodium chloride but medically stable awaiting placement once bed available (6) HLD (hyperlipidemia): Continued atorvastatin, LFT elevation likely from medications Consider holding for a few days at discharge (7) Pre-diabetes: HbA1C - 5.9% (8) Polydipsia: psychogenic limit intake/restriction at d/c (9) Elevated LFTs: 2nd cirrhosis based on imaging will need outpt f/u after discharge BHU (10) Hypertension: Cont metoprolol 12.5mg BID Cont amlodipine 2.5mg daily Cont lisinopril 10mg daily Consider clonidine as above BP stable Planning lisinopril continued at d/c, new rx for amlodipine and metoprolol NO chlorthalidone at d/c consider clonidine addition if BPs spike/further elevated (11) Weight loss: [address] - no nodules to suggest lung ca checked AM cortisol -- not elevated at his request checked Lyme screen -- negative will need outpatient w/u for this issue with his PCP (12) Severe protein-calorie malnutrition: can't confirm what prior weights were but he reports 40 pounds of weight loss in light of heavy tobacco dependence in the past checked CT chest - negative (13) Former heavy tobacco smoker: as above (14) Electrolyte abnormality: Low K - resolved Low mag - resolved Low Na - marked improvement (15) Abnormal finding on CT scan: 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 CTA head did NOT show aneurysm this finding on CT - pituitary adenoma?? consider MRI brain - pituitary protocol - could do this as outpatient TSH/FT4 wnl Check AM cortisol - wnl Plan DVT proph - low risk - walking the hallways ALL day - defer on chemical means discharged to inpatient BHU here at [facility] for ongoing treatment Suspect consultation to occur and would need continued input as needed based on repeat in follow up Total Time Total Time Spent Total Time Spent (In Minutes): 60 Discharge Plan Discharge Items Patient Disposition: Transfer Behavioral Health Fac Reason For Visit: DELIRIUM Discharge Diagnosis: Psychosis, Hyponatremia Goals: You have been hospitalized for an acute medical problem. During your stay at [facility], we have made an effort to correct the problem that brought you to the hospital while keeping you as comfortable as possible. Medications were used to bring your condition under control and your discharge instructions will include directions for any medications you should take after leaving the hospital. Please make sure you see your Primary Care Provider as part of your follow up plan. Activity: As commented below Non-emergency contact: Primary Care Provider and Psychiatrist Call non-emergency contact if: you have any medication questions and your symptoms worsen Follow-up/Referrals: Dionna Le [Primary Care Provider] - Diet: Regular Fluids: 1500ml (6 cups) Diet Texture: Easy to Chew Addtl Attending Provider Instructions: You have been hospitalized after a stay at [facility] and found have have been down with vomit and your sodium (as well as potassium and magnesium) were low on admission. We have consulted nephrology and this is likely due to a combination of medications with your chlorthalidone for blood pressure as well as recent lithium and keppra started at the [facility]. Your sodium has improved to 133 prior to discharge and we are recommending continuing a 1500ml/day restriction for now and monitoring your electrolytes daily until these return to normal and then we can back off the fluid res triction. Your medications at discharge will include metoprolol 12.5mg twice daily and amlodipine 2.5mg daily for blood pressure and your CHLORTHALIDONE has been STOPPED. You will be continued on sodium tablets 2gm by mouth twice daily and Lasix 20mg daily in the meantime and we can have additional recommendations with nephrology in follow up. Please follow up with psychiatry after discharge and continued medication adjustments per their service during inpatient treatment. It has been a pleasure being a part of the medical team providing for you while you have been in the hospital. Take care! Pending Studies at Discharge: Yes Studies:: b1 Stand-Alone Forms: My [facility] Medications and DC Order Prescriptions: Continued metformin 500 mg tablet 500 mg PO DAILY Discontinued chlorthalidone 25 mg tablet 25 mg PO DAILY levetiracetam 500 mg Tablet 500 mg PO BID Rx Instructions: give at 0900&1300 levetiracetam 1,000 mg Tablet 1,000 mg PO HS meloxicam 15 mg tablet 15 mg PO DAILY quetiapine 300 mg Tablet 300 mg PO HS quetiapine 50 mg Tablet 50 mg PO BID Rx Instructions: 0900&1300 quetiapine 50 mg Tablet 50 mg PO .EVERY 30 MINUTES MDD 2 PRN (Reason: Agitation) No Action divalproex 500 mg tablet,delayed release (DR/EC) 500 mg PO HS temazepam 15 mg capsule 15 mg PO HS trazodone 50 mg tablet 100 mg PO HS Rx Instructions: may take an additional 50-100mg hs prn lithium carbonate 300 mg capsule 300 mg PO BID meloxicam 15 mg tablet 15 mg PO QAM allopurinol 100 mg tablet 100 mg PO QAM topiramate 100 mg tablet 100 mg PO BID atorvastatin 40 mg tablet 40 mg PO QAM quetiapine 200 mg tablet 200 mg PO HS chlorpromazine 25 mg tablet 50 - 100 mg PO HS PRN (Reason: Insomnia) Rx Instructions: may take 12.5-25mg po BID prn britta gabapentin 600 mg tablet 600 mg PO TID chlorthalidone 25 mg tablet 25 mg PO QAM cholecalciferol (vitamin D3) [Vitamin D3] 25 mcg (1,000 unit) Tablet 25 mcg PO QDL vitamin B complex [B Complex] Capsule 1 cap PO QDL melatonin 3 mg Tablet 15 - 18 mg PO HS PRN (Reason: Insomnia) Discharge Orders: Discharge Order (Routine); Ordered 02/17/22 Ordered By: Julia Power Admission Data Admit Date/Time: 02/11/22 01:29 Attending Provider: Bryant Thomas Admit Provider: Sofía Young Primary Care Provider: Dionna Le Other Providers: Sofía Young ; Tina Bowling ; Roselia Mitchell ; Harlan Bernal Other Interventions: Discharge Summary Assessment (RN) Last Done: 02/17/22 12:34 Supervising Physician Co-Signing Physician Notes Attending Attestation & D/C Note - PT seen/examined, chart reviewed, care plan d/w CLAUDIA Power. I agree w/ the larson components of her d/c summary. 66yo male with known bipolar disorder - admitted from the [facility] due to altered mental status - found to have severe hyponatremia with presenting Na level of 122. Na level improved with NaCl tablet supplementation, fluid restriction, and low- dose lasix. D/c Na level 133. His mental status improved as his Na level improved in that he was awake/alert/eating/ambulating. However, as his stay went on, he became increasingly psychotic and agitated. On day of d/c to our [facility] he required multiple doses of anti-psychotic medication due to severe agitation and aggressive behavior in the midst of severe psychosis. He is transferring to the [facility] for ongoing care of his severe bipolar d/o. Of note - CT head was negative for acute findings. CT did show a small nodule in the region of the pituitary gland and patient did report a past h/o pituitary adenoma. This will ultimately require dedicated MRI brain, pituitary gland protocol, when his bipolar disorder is under control and he can cooperate during an MRI. This is not urgent. Of note - TSH, FT4, and cortisol levels were wnl. Discharge exam - gen - sleeping (recently received antipsychotic medication) heart - RRR, s1 s2, no murmur lungs - CTA b/l abd - soft, ND, BS+ ext - no edema, pulses 2+ b/l Bryant Thomas MD Coding Level of Care Code D/C DAY MANAGEMENT >30 MINS Diagnoses Hyponatremia E87.1 Metabolic encephalopathy G93.41 Acute psychosis F23 Insomnia G47.00 Bipolar 1 disorder F31.9 HLD (hyperlipidemia) E78.5 Pre-diabetes R73.03 Polydipsia R63.1 Elevated LFTs R79.89 Hypertension I10 Weight loss R63.4 Severe protein-calorie malnutrition E43 Former heavy tobacco smoker Z87.891 Electrolyte abnormality E87.[address] scan R93.89
== END 2022-02-17 12:55 | DRG 640 ==
LOC: ED 22:39 → SUATTDRO 02-11 01:29 → 3E 02-11 01:29 → 2N 02-11 09:35

== ENCOUNTER 2022-02-17 11:17 | Inpatient (IN) ==
[2022-02-17] MEDS ORDERED: MAGNESIUM HYDROXIDE SUSP 30 ML UDC PO PRN (13:23)
[2022-02-17] MEDS ORDERED: BISMUTH SUBSALICYLATE LIQD 236 ML PO PRN (13:23)
[2022-02-17] MEDS ORDERED: ALUMINUM/MAGNESIUM SUSP 30 ML UDC PO PRN (13:23)
[2022-02-17] MEDS ORDERED: SODIUM CHLORIDE 0.65% NA SOLN 45 ML (OCEAN) PRN (13:23)
[2022-02-17] MEDS ORDERED: BENZTROPINE MESYLATE 1 MG/ML 2 ML AMP IM PRN (13:29)
[2022-02-17] MEDS ORDERED: HALOPERIDOL LACTATE 5 MG/ML 1 ML VIAL IM PRN (13:29)
--- NOTE | 2022-02-17 13:47 | History & Physical ---
Date of Service February 17, 2022 Impression / Recommendations Impression 66 yo male with hx of bipolar disorder, resolving encephalopathy and hyponatremia following [facility] admission and trial of Keppra, acute worsening of britta on the medical floor with need to restart mood stabilizing medication. Patient on MNPR and elopement precautions given severity of psychosis and recent agitation. (1) Bipolar 1 disorder: (2) Electrolyte abnormality: (3) Hypertension: Plan The patient was admitted to the [facility] ([facility] mental health unit) on q15 min checks (behavioral with suicide precautions) for safety. The patient will participate in group, recreational, and milieu therapies and will be offered additional individual and family sessions as clinically appropriate. Retitrating Seroquel, will resume Depakote. Hospitalist consult for ongoing co- management of sodium in the setting of restarting psych meds. 1500 ml fluid restriction. Haldol IM prn agitation, minimize exposure to Cogentin. Inventory Assets Strengths: supportive , taking PO meds Needs: ongoing medical management, coordination of care with outpatient providers Suicide Risk Level Suicide Risk Level: Low (q15 min observation checks) Risk Factors Assessment Male: Yes : Yes Health Problems: Yes Mental Health Diagnoses: Yes Previous Psychiatric Hospitalization: Yes Protective Factors Assessment : Yes Supportive Family: Yes Psychiatric History Identifying Data KEVON BRO is a 66-year-old M who currently lives in [place], has a history of bipolar disorder, and was admitted on 02/17/22 13:24 on a 302 involuntary commitment for britta with psychosis. Chief Complaint "I prefer Robert, I was Pawan, are you prepping the OR for me?" History of Present Illness Patient initially presented to the ED on 02/06/22 for poor sleep and argumentative behavior with his . He was transferred to the [facility] on a 201 commitment and then sent back to [facility] for assessment as he was found unresponsive there having vomited. He was admitted medically on 02/11/22 with hyponatremia and psych meds have been held. He exhibited some delirium, delusions, and psychomotor restlessness but has not really required much in the way of PRN medications. He made some odd shinto statements and sexual comments about his but was rather redirectible until confinement of medical floor and fluid restriction continued. He was in the process of being medically cleared to return to the [facility] when early this am he started moving/throwing equipment, wandering into other rooms (to get fluids), and believed he was either a surgeon or attempting to sell medical equipment. He required prn Zyprexa, Ativan, and Haldol. A 302 warrant was obtained and he is now settling into the unit routine. He attempted to hit hospitalist during intervention. Per discussions with Julia Power PA-C he will be followed medically, continue salt tabs and fluid restriction to loosened to 1500 ml. It should be noted that prior to his presentation, he had been tried on lithium with longstanding rx of Depakote. Both were stopped abruptly upon admission to the [facility] in favor of a trial of Keppra which appears to be when his sodium dropped. Past Psychiatric History Previous Psych History: [facility]--Edie Albarran PA-C. Previous Psych Admissions: [facility] 2004 (twice as left prematurely), 2019 [facility] for manic behavior following a family trip to [place] Past Medication Trials: Depakote, Seroquel, Klonopin, [place], "others", chlorpromazine Allergies Allergy/AdvReac Type Severity Reaction Status Date / Time diphenhydramine Allergy Unknown Unknown Verified 02/11/22 01:31 guaifenesin Allergy Unknown Unknown Verified 02/11/22 01:31 ibuprofen Allergy Unknown Unknown Verified 02/11/22 01:31 pseudoephedrine Allergy Unknown Unknown Verified 02/11/22 01:31 Home Medications Medication Instructions Recorded Confirmed Type metformin 500 mg tablet 500 mg PO DAILY 12/07/18 02/11/22 History allopurinol 100 mg tablet 100 mg PO DAILY 02/06/22 02/11/22 History acetaminophen 325 mg tablet 650 mg PO Q6 PRN Pain 02/11/22 02/11/22 History atorvastatin 40 mg tablet 40 mg PO HS 02/11/22 02/11/22 History lisinopril 10 mg tablet 10 mg PO DAILY 02/11/22 02/11/22 History amlodipine 5 mg tablet (Norvasc) 2.5 mg PO QAM 30 days #30 tabs 02/17/22 Rx furosemide 20 mg tablet 20 mg PO QAM #30 tabs 02/17/22 Rx metoprolol tartrate 25 mg tablet 12.5 mg PO BID 30 days #30 tabs 02/17/22 Rx quetiapine 100 mg tablet (Seroquel) 100 mg PO HS #30 tabs 02/17/22 Rx sodium chloride 1,000 mg soluble 2 g PO BID 14 days #56 tabs 02/17/22 Rx tablet thiamine HCl (vitamin B1) 100 mg 100 mg PO BID 30 days #60 tabs 02/17/22 Rx tablet Alcohol History Hx of Alcohol Use Over the Past 12 Months: No (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) Smoking Use Smoking Status: Unknown if ever smoked Substance History denied Personal History Beliefs That Will Affect Care: None Patient History Medical History Bipolar 1 disorder Elevated LFTs HLD (hyperlipidemia) Hypertension Hyponatremia Family History Other No significant family history Social History (Updated 02/17/22 @ 13:42 by Roselia Mitchell MD) Smoking Status: Unknown if ever smoked Preferred Language: Argentine Communication Ability: Effective Food Cart Attendant Required: No Beliefs That Will Affect Care: None marital status: Current Living Situation: Spouse 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 Feels Safe at Home: Declines to Answer Assistive Devices: None Review of Systems Review of Systems: All systems reviewed & are unremarkable except as noted in HPI & below Physical Exam Psychiatric: Orientation: alert and oriented to person Apperance: appropriately dressed and appropriately groomed Eye Contact: + fair eye contact Motor Behavior: + abnormal motor movements (restless) Speech: + abnormal rate/rhythm/volume of speech (hyperverbal) Affect: + constricted affect Mood: + irritable mood Thought Process: + tangential thought process Thought Content: + delusions Suicidal Thoughts: denies suicidal thoughts Homicidal Thoughts: denies homicidal thoughts Hallucinations: no auditory hallucinations and no visual hallucinations Cognition: language grossly intact; + attention not intact Insight: + impaired insight Judgement: + impaired judgement Exam Statement: A physical exam was performed on the medical floor by Sofía Young and Julia Power for the purposes of H&P and medical clearance. I accept their physicals as correct and adequate for the purposes of the inpatient physical exam. Results & Data ([facility]) Laboratory Results see medical admission Current Inpatient Medications Current Inpatient Medications: Current Inpatient Medications Acetaminophen (Acetaminophen 325 Mg Tab) 650 mg PO Q4H PRN PRN Reason: Headache or Minor Fever Stop: 03/19/22 13:22 Al Hydrox/Mg Hydrox/Simethicone (Aluminum/Magnesium Susp 30 Ml Udc) 30 ml PO Q4H PRN PRN Reason: GI Upset Stop: 03/19/22 13:22 Allopurinol (Allopurinol 100 Mg Tab) 100 mg PO DAILY [facility] Stop: 03/20/22 08:59 Amlodipine Besylate (Amlodipine Besylate 5 Mg Tab) 2.5 mg PO QAM [facility] Stop: 03/20/22 08:59 Atorvastatin Calcium (Atorvastatin 40 Mg Tab) 40 mg PO HS [facility] Stop: 03/19/22 21:59 Benztropine Mesylate (Benztropine Mesylate 1 Mg/Ml 2 Ml Amp) 1 mg IM BID PRN PRN Reason: Muscle Spasm Stop: 03/19/22 13:28 Bismuth Subsalicylate (Bismuth Subsalicylate Liqd 236 Ml) 15 ml PO PRN PRN PRN Reason: Loose Stool Stop: 03/19/22 13:22 Furosemide (Furosemide 20 Mg Tab) 20 mg PO QAM [facility] Stop: 03/20/22 08:59 Haloperidol Lactate (Haloperidol Lactate 5 Mg/Ml 1 Ml Vial) 5 mg IM Q6 PRN PRN Reason: Agitation Stop: 03/19/22 13:28 Lisinopril (Lisinopril 10 Mg Tab) 10 mg PO DAILY [facility] Stop: 03/20/22 08:59 Lorazepam (Lorazepam 1 Mg Tab) 1 mg PO Q6 PRN PRN Reason: Anxiety/Insomnia Stop: 03/19/22 13:25 Magnesium Hydroxide (Magnesium Hydroxide Susp 30 Ml Udc) 30 ml PO DAILY PRN PRN Reason: Constipation Stop: 03/19/22 13:22 Metformin HCl (Metformin Hcl 500 Mg Tab) 500 mg PO DAILY [facility] Stop: 03/20/22 08:59 Metoprolol Tartrate (Metoprolol Tartrate 25 Mg Tab) 12.5 mg PO BID [facility] Stop: 03/19/22 20:59 Quetiapine Fumarate (Quetiapine Fumarate 25 Mg Tablet) 150 mg PO HS [facility] Stop: 03/19/22 21:59 Sodium Chloride (Sodium Chloride 0.65% Na Soln 45 Ml ([place])) 1 - 2 sprays NA PRN PRN PRN Reason: Nasal Dryness/Congestion Stop: 03/19/22 13:22 Sodium Chloride (Sodium Chloride 1 Gm Tablet) 2 gm PO BID [facility] Stop: 03/19/22 20:59 Thiamine HCl (Thiamine Hcl 100 Mg Tab) 100 mg PO BID [facility] Stop: 03/19/22 20:59
[2022-02-17] MEDS: THIAMINE HCL 100 MG TAB PO SCH (20:28)
[2022-02-17] MEDS: ATORVASTATIN 40 MG TAB PO SCH (20:28)
[2022-02-17] MEDS: LORazepam 1 MG TAB PO PRN (20:29)
[2022-02-17] MEDS: QUEtiapine FUMARATE 100 MG TABLET PO SCH (20:29)
[2022-02-17] MEDS: SODIUM CHLORIDE 1 GM TABLET PO SCH (20:30)
[2022-02-17] MEDS: METOPROLOL TARTRATE 25 MG TAB PO SCH (20:30)
[2022-02-17] MEDS: ACETAMINOPHEN 325 MG TAB PO PRN (21:19)
[2022-02-18] MEDS: haloperidoL 5 MG TAB PO PRN ×4 (01:24→20:59)
[2022-02-18] MEDS: LORazepam 1 MG TAB PO PRN ×3 (02:15→20:59)
[2022-02-18] MEDS: ACETAMINOPHEN 325 MG TAB PO PRN ×2 (02:39→15:51)
[2022-02-18] MEDS: allopurinoL 100 MG TAB PO SCH (07:54)
[2022-02-18] MEDS: amLODIPine BESYLATE 5 MG TAB PO SCH (07:54)
[2022-02-18] MEDS: metFORMIN HCL 500 MG TAB PO SCH (07:55)
[2022-02-18] MEDS: METOPROLOL TARTRATE 25 MG TAB PO SCH ×2 (07:55→20:59)
[2022-02-18] MEDS: SODIUM CHLORIDE 1 GM TABLET PO SCH ×2 (07:55→20:58)
[2022-02-18] MEDS: lisinopril 10 MG TAB PO SCH (07:55)
[2022-02-18] MEDS: THIAMINE HCL 100 MG TAB PO SCH ×2 (07:55→20:59)
[2022-02-18] MEDS: FUROSEMIDE 20 MG TAB PO SCH (07:56)
--- NOTE | 2022-02-18 10:23 | Psychiatric Progress Note ---
Date of Service February 18, 2022 Impression / Recommendations Impression 66 yo male with hx of bipolar disorder, resolving encephalopathy and hyponatremia following [facility] admission and trial of Keppra, acute worsening of britat on the medical floor with need to restart mood stabilizing medication. Diagnostically consistent with acute britta given lack of sleep, mood lability with periods of hypersexuality, delusions, psychomotor agitation and hyperverbal speech. The patient is deemed unstable and requires psychiatric hospitalization for diagnostic clarification, safety and stabilization, medication management and development of further coping skills. MNPR and elopement precautions given severity of psychosis, agitation and hypersexual behavior/intrusive with peers 02/18/22: Ongoing acute britta with severe agitation and disorganization requiring near constant redirection. Reviewed interim progress per Dr. Mitchell's notes and medical admission notes. Difficult to impose fluid restrictions due to his level of disorganization and agitation but will continue to attempt to remove cups when able to limit his water intake and hospitalist service consulting to help with recommendations regarding hyponatremia and monitoring of this. Given acuity of britta and hyponatremia limiting antipsychotic dose titration and reportedly previously stable on depakote will restart this today especially as this tends to be less likely to cause worsening of hyponatremia (though can lead to SIADH so will continue to monitor closely). Baseline labs of CBC with diff, LFTs, electrolytes, PT, and weight were preformed and WNL with exception of elevated AST and ALT so will continue to monitor these closely but benefits felt to outweigh potential risks at this time given acuity of britta with lack of sleep and risks of worsening hyponatremia if disorganization is not treated expeditiously. He is unable to participate in any type of detailed discussion about medication risks/benefits/alternatives given level of acute britta but he agreed to take Depakote. (1) Bipolar disorder with severe britta: (2) Agitation: (3) Acute psychosis: (4) Bipolar 1 disorder: (5) Electrolyte abnormality: (6) Hypertension: Plan 02/18/22: Continue with seroquel 150mg qhs, start Depakote ER 500mg BID po. Recheck LFTs in 3-5 days. 02/17/22: The patient was admitted to the [facility] ([facility] mental health unit) on q15 min checks (behavioral with suicide precautions) for safety. The patient will participate in group, recreational, and milieu therapies and will be offered additional individual and family sessions as clinically appropriate. Retitrating Seroquel, will resume Depakote. Hospitalist consult for ongoing co- management of sodium in the setting of restarting psych meds. 1500 ml fluid restriction. Haldol IM prn agitation, minimize exposure to Cogentin. Inventory Assets Strengths: supportive , taking PO meds Needs: ongoing medical management, coordination of care with outpatient providers Suicide Risk Level Suicide Risk Level: Low (q15 min observation checks) (acute britta with disorganization but no statements of depression nor SI. ) Risk Factors Assessment Male: Yes : Yes Do You Have Access To A Gun?: Yes Health Problems: Yes Mental Health Diagnoses: Yes Previous Psychiatric Hospitalization: Yes Protective Factors Assessment : Yes Supportive Family: Yes Interval History Identifying Information KEVON BRO is a 66-year-old M who currently lives in [place], has a history of bipolar disorder, and was admitted on 02/17/22 13:24 on a 302 involuntary commitment for britta with psychosis. Chief Complaint "I'm a scorpion". Review of Systems Sleep Information Total Hours of Sleep: 0.25 Meal Information Percent Meal Consumed - Breakfast: 100 Percent Meal Consumed - Lunch: 100 Percent Meal Consumed - Dinner: 75 Subjective Subjective Patient was seen & assessed and interval progress reviewed with treatment team nursing and social work. Overnight destructive and requiring near constant redirection. Only sleep for about 15 minutes overnight. Last night moved his bed and ripped on the cord hard enough to remove an outlet from the wall requiring maintenance to come overnight to fix it. Took the shower door off and carried it around the unit. Labile and hypersexual with staff and peers and then quickly irritable. This morning banged on my office door then told me he was a scorpion and requested extra hot coffee. Not following fluid restrictions and hard to mitigate as he will not returns cups once he has some water. Kicking and pulling things off the doors last night. Required additional po doses of prn haldol (5mg x2) and ativan (1mg x2) throughout the night. Taking po medications. Physical Exam Psychiatric Orientation: alert and oriented to person Apperance: appropriately dressed and appropriately groomed Eye Contact: + fair eye contact (intense) Motor Behavior: + psychomotor agitation Speech: + abnormal rate/rhythm/volume of speech (hyperverbal) Affect: + labile affect Mood: + irritable mood Thought Process: + tangential thought process Thought Content: + preoccupation (with scorpions and cobras), + paranoid and + delusions Suicidal Thoughts: denies suicidal thoughts Homicidal Thoughts: denies homicidal thoughts Hallucinations: no auditory hallucinations (denies, unclear if he's responding to any) and no visual hallucinations Cognition: remote memory grossly intact and language grossly intact; + recent memory not intact and + attention not intact Insight: + severely impaired insight Judgement: + severely impaired judgement Vital Signs (Past 24 Hours) Last Vital Signs Temp 37.0 C 02/18/22 06:00 Pulse 75 02/18/22 06:00 Resp 16 02/18/22 06:00 BP 159/88 H 02/18/22 06:00 Pulse Ox 97 02/18/22 06:00 O2 Del Method 02/18/22 06:00 Results & Data ([facility]) Current Inpatient Medications Current Inpatient Medications: Current Inpatient Medications Acetaminophen (Acetaminophen 325 Mg Tab) 650 mg PO Q4H PRN PRN Reason: Headache or Minor Fever Stop: 03/19/22 13:22 Last Admin: 02/18/22 02:39 Dose: 650 mg Al Hydrox/Mg Hydrox/Simethicone (Aluminum/Magnesium Susp 30 Ml Udc) 30 ml PO Q4H PRN PRN Reason: GI Upset Stop: 03/19/22 13:22 Allopurinol (Allopurinol 100 Mg Tab) 100 mg PO DAILY [facility] Stop: 03/20/22 08:59 Last Admin: 02/18/22 07:54 Dose: 100 mg Amlodipine Besylate (Amlodipine Besylate 5 Mg Tab) 2.5 mg PO QAM [facility] Stop: 03/20/22 08:59 Last Admin: 02/18/22 07:54 Dose: 2.5 mg Atorvastatin Calcium (Atorvastatin 40 Mg Tab) 40 mg PO HS [facility] Stop: 03/19/22 21:59 Last Admin: 02/17/22 20:28 Dose: 40 mg Benztropine Mesylate (Benztropine Mesylate 1 Mg/Ml 2 Ml Amp) 1 mg IM BID PRN PRN Reason: Muscle Spasm Stop: 03/19/22 13:28 Bismuth Subsalicylate (Bismuth Subsalicylate Liqd 236 Ml) 15 ml PO PRN PRN PRN Reason: Loose Stool Stop: 03/19/22 13:22 Divalproex Sodium (Divalproex Extended Release 500 Mg Tab) 500 mg PO BID [facility] Stop: 03/20/22 09:44 Furosemide (Furosemide 20 Mg Tab) 20 mg PO QAM [facility] Stop: 03/20/22 08:59 Last Admin: 02/18/22 07:56 Dose: 20 mg Haloperidol (Haloperidol 5 Mg Tab) 5 mg PO Q6 PRN PRN Reason: Anxiety/Agitation Stop: 03/20/22 01:15 Last Admin: 02/18/22 07:56 Dose: 5 mg Haloperidol Lactate (Haloperidol Lactate 5 Mg/Ml 1 Ml Vial) 5 mg IM Q6 PRN PRN Reason: Agitation Stop: 03/19/22 13:28 Lisinopril (Lisinopril 10 Mg Tab) 10 mg PO DAILY [facility] Stop: 03/20/22 08:59 Last Admin: 02/18/22 07:55 Dose: 10 mg Lorazepam (Lorazepam 1 Mg Tab) 1 mg PO Q6 PRN PRN Reason: Anxiety/Insomnia Stop: 03/19/22 13:25 Last Admin: 02/18/22 02:15 Dose: 1 mg Magnesium Hydroxide (Magnesium Hydroxide Susp 30 Ml Udc) 30 ml PO DAILY PRN PRN Reason: Constipation Stop: 03/19/22 13:22 Metformin HCl (Metformin Hcl 500 Mg Tab) 500 mg PO QDB [facility] Stop: 03/20/22 08:59 Last Admin: 02/18/22 07:55 Dose: 500 mg Metoprolol Tartrate (Metoprolol Tartrate 25 Mg Tab) 12.5 mg PO BID [facility] Stop: 03/19/22 20:59 Last Admin: 02/18/22 07:55 Dose: 12.5 mg Quetiapine Fumarate (Quetiapine Fumarate 100 Mg Tablet) 150 mg PO HS [facility] Stop: 03/19/22 21:59 Last Admin: 02/17/22 20:29 Dose: 150 mg Sodium Chloride (Sodium Chloride 0.65% Na Soln 45 Ml ([place])) 1 - 2 sprays NA PRN PRN PRN Reason: Nasal Dryness/Congestion Stop: 03/19/22 13:22 Sodium Chloride (Sodium Chloride 1 Gm Tablet) 2 gm PO BID [facility] Stop: 03/19/22 20:59 Last Admin: 02/18/22 07:55 Dose: 2 gm Thiamine HCl (Thiamine Hcl 100 Mg Tab) 100 mg PO BID [facility] Stop: 03/19/22 20:59 Last Admin: 02/18/22 07:55 Dose: 100 mg Mental Health & Subst Abuse Tx Therapist Name of Therapist: no Horticultural Specialty Grower Name of Horticultural Specialty Grower: no Post Discharge Appointments Primary Care Physician Name Of Family Doctor: [facility] Audrey
[2022-02-18] MEDS: DIVALPROEX EXTENDED RELEASE 500 MG TAB PO SCH ×2 (10:32→20:59)
--- NOTE | 2022-02-18 20:46 | Consultation ---
Date of Consultation February 18, 2022 Assessment & Plan (1) Hyponatremia: Lowest Na level was 121 on 02/12/22 Improved to 133 prior to discharge to the [facility] Improvement was achieved with salt supplementation 2gm BID, fluid restriction, and lasix 20mg daily Continue the above Fluid restriction will be challenging due to free access to water in the U in the common areas Plan to repeat CBC, BMP, and mag in the am tomorrow Cause of hyponatremia - SIADH The etiology of the SIADH, however, is uncertain (2) Bipolar disorder with severe britta: defer Rx to psychiatry (3) Agitation: defer Rx to psychiatry (4) Former heavy tobacco smoker: (5) Severe protein-calorie malnutrition: patient had self-reported a 30-40 pound weight loss over the last year CT chest while on medical was negative for suspicious nodules, etc. f/u with PCP post-d/c from [facility] recent thiamine level returned low-normal at 11 - thus, continue thiamine supplementation recent B12 level was wnl (6) Hypertension: cont metoprolol BID, lisinopril daily, and amlodipine daily if sleep continues to be an issue and if his BPs remain high consider HS clonidine defer for now (7) Pre-diabetes: recent Hba1c 5.9% cont metformin daily BSGs as needed check creatinine for stability (8) History of pituitary adenoma: treated medicinally place of treatment and the date of past Rx is unknown recent cortisol level was acceptable TSH/FT4 were wnl no signs of krishna-hypopit small suprasellar "ovoid structure" seen on recent imaging is likely an adenoma he would need a dedicated MRI, pituitary protocol, for further information but MRI is not necessary at this time Plan Thank you for this consult. We will follow along with you. History of Present Illness Requesting Physician: Roselia Mitchell MD Reason for Consultation: hyponatremia Attending Physician: Roselia Mitchell MD History of Present Illness 66yo male with h/o bipolar disorder, HTN, prediabetes, and prior tobacco dependence who was recently hospitalized at [facility] for severe hyponatremia. The patient was hospitalized from 02/11 to 02/17 after having been previously treated for his Bipolar disorder at the [facility]. 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 He improved with salt tablet supplementation, fluid restriction, and low-dose lasix. Na level was 133 on 02/16 and 02/17. The patient had worsening psychosis in the setting of his bipolar disorder while on the medical floor. Psychiatry was consulted and on 02/17 he was discharged to the [facility]. We have been asked to consult for management of his hyponatremia. I attempted to see Mr Perez on the afternoon of 02/18. He was sitting alone in the common area. When I approached him to talk with him he immediately became angry, stating he had missed [place] with his grandchildren because "we did this to him." He became very agitated, stood up and walked away. He was using profanities. Due to agitation a complete history and exam were not completed. Allergies Allergy/AdvReac Type Severity Reaction Status Date / Time diphenhydramine Allergy Unknown Unknown Verified 02/11/22 01:31 guaifenesin Allergy Unknown Unknown Verified 02/11/22 01:31 ibuprofen Allergy Unknown Unknown Verified 02/11/22 01:31 pseudoephedrine Allergy Unknown Unknown Verified 02/11/22 01:31 Home Medications Medication Instructions Recorded Confirmed Type metformin 500 mg tablet 500 mg PO DAILY 12/07/18 02/11/22 History allopurinol 100 mg tablet 100 mg PO DAILY 02/06/22 02/11/22 History acetaminophen 325 mg tablet 650 mg PO Q6 PRN Pain 02/11/22 02/11/22 History atorvastatin 40 mg tablet 40 mg PO HS 02/11/22 02/11/22 History lisinopril 10 mg tablet 10 mg PO DAILY 02/11/22 02/11/22 History amlodipine 5 mg tablet (Norvasc) 2.5 mg PO QAM 30 days #30 tabs 02/17/22 Rx furosemide 20 mg tablet 20 mg PO QAM #30 tabs 02/17/22 Rx metoprolol tartrate 25 mg tablet 12.5 mg PO BID 30 days #30 tabs 02/17/22 Rx quetiapine 100 mg tablet (Seroquel) 100 mg PO HS #30 tabs 02/17/22 Rx sodium chloride 1,000 mg soluble 2 g PO BID 14 days #56 tabs 02/17/22 Rx tablet thiamine HCl (vitamin B1) 100 mg 100 mg PO BID 30 days #60 tabs 02/17/22 Rx tablet Patient History Medical History (Updated 02/19/22 @ 05:32 by Bryant Thomas) Bipolar 1 disorder Elevated LFTs HLD (hyperlipidemia) Hypertension Hyponatremia Surgical History (Updated 02/19/22 @ 05:24 by Bryant Thomas) No pertinent past surgical history Family History Other No significant family history Social History Smoking Status: Former smoker packs per day: 4; Smoking End Date: unknown; Preferred Language: Khmer Communication Ability: Effective Physician In Private Practice Required: No Beliefs That Will Affect Care: None marital status: Current Living Situation: Spouse 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) Vital Signs (Past 12 Hours) Vital Signs Temp Pulse Pulse Resp BP Pulse Ox O2 Del Method 02/18/22 06:00 37.0 C 75 16 159/88 H 97 Room Air Laboratory Results Na level 02/16 = 133 Na level 02/17 = 133 PG Care Time/CCT Total # of Minutes Spent Total Time Spent with Patient: Total time spent is greater than 50% in coordination of care (as documented) at patient's floor/unit and/or counseling patient: Coding Level of Care Code 02388 Subseq Hosp Care Lvl 2 Diagnoses Hyponatremia E87.1 Bipolar disorder with severe britta F31.13 Agitation R45.1 Former heavy tobacco smoker Z87.891 Severe protein-calorie malnutrition E43 Hypertension I10 Pre-diabetes R73.03 History of pituitary adenoma Z86.018
[2022-02-18] MEDS: ATORVASTATIN 40 MG TAB PO SCH (20:59)
[2022-02-18] MEDS: QUEtiapine FUMARATE 100 MG TABLET PO SCH (20:59)
[2022-02-18] MEDS ORDERED: OLANZapine 5 MG TABLET PO PRN (23:28)
[2022-02-19] MEDS ORDERED: chlorproMAZINE HCL 25 MG TAB PO PRN (01:22)
[2022-02-19] MEDS ORDERED: LORazepam 1 MG TAB PO STA (01:59)
[2022-02-19] MEDS ORDERED: haloperidoL 5 MG TAB PO STA (06:01)
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
[2022-02-19] MEDS: DIVALPROEX EXTENDED RELEASE 500 MG TAB PO SCH (10:38)
[2022-02-19] MEDS: allopurinoL 100 MG TAB PO SCH (10:38)
[2022-02-19] MEDS: metFORMIN HCL 500 MG TAB PO SCH (10:38)
[2022-02-19] MEDS: amLODIPine BESYLATE 5 MG TAB PO SCH (10:39)
[2022-02-19] MEDS: SODIUM CHLORIDE 1 GM TABLET PO SCH ×2 (10:40→20:48)
[2022-02-19] MEDS: lisinopril 10 MG TAB PO SCH (10:40)
[2022-02-19] MEDS: METOPROLOL TARTRATE 25 MG TAB PO SCH ×2 (10:40→20:46)
[2022-02-19] MEDS: FUROSEMIDE 20 MG TAB PO SCH (10:40)
[2022-02-19] MEDS: clonazePAM 1 MG TAB PO SCH ×3 (10:41→20:52)
[2022-02-19] MEDS: THIAMINE HCL 100 MG TAB PO SCH ×2 (10:41→20:47)
[2022-02-19 11:17] LABS: Basophils # (auto) 0.02 K/uL (0-0.2); Basophils % (auto) 0.3 %; Eosinophils # (auto) 0.08 K/uL (0-0.50); Eosinophils % (auto) 1.2 %; Hemoglobin 12.9 g/dl (14.0-18.0); Immature Granulocytes # (auto) 0.01 K/uL (0.00-0.02); Immature Granulocytes % (auto) 0.2 %; Lymphocytes # (auto) 2.71 K/uL (1.2-3.4); Lymphocytes % (auto) 40.9 %; Mean Corpuscular Hemoglobin 29.6 pg (25.0-34.0); Mean Corpuscular Hgb Conc 34.9 g/dL (32.0-36.0); Mean Corpuscular Volume 84.9 fL (80.0-100.0); Monocytes # (auto) 0.78 K/uL (0.24-0.82); Monocytes % (auto) 11.8 %; Neutrophils # (auto) 3.03 K/uL (1.4-6.5); Neutrophils % (auto) 45.6 %; Platelet Count 192 K/uL (130-400); RDW Standard Deviation 43.5 fL (36.4-46.3); Red Blood Count 4.36 M/uL (4.63-6.08); White Blood Count 6.63 K/ul (4.8-10.8)
[2022-02-19] MEDS ORDERED: chlorproMAZINE HCL 25 MG/ML AMP IM PRN (11:20)
[2022-02-19] MEDS ORDERED: LORazepam 2 MG/1 ML VIAL IM PRN (11:25)
[2022-02-19 11:46] LABS: Calcium 9.8 mg/dl (8.5-10.1); Creatinine Clr Calc Pharmacy 98.8 ml/min; Est GFR (African American) 107.9 ml/min; Est GFR (Non-African American) 93.1 ml/min; Magnesium 1.8 mg/dl (1.7-2.4); Potassium 4.3 mmol/L (3.5-5.1)
--- NOTE | 2022-02-19 12:29 | Electrocardiogram Report ---
Test Reason : Blood Pressure : / mmHG Vent. Rate : 100 BPM Atrial Rate : 100 BPM P-R Int : 142 ms QRS Dur : 074 ms QT Int : 354 ms P-R-T Axes : 075 -44 073 degrees QTc Int : 456 ms Normal sinus rhythm Left axis deviation Nonspecific ST abnormality Abnormal ECG When compared with ECG of 11-FEB-2022 11:14, T wave inversion no longer evident in Inferior leads QT has shortened Confirmed by Vikash Garcia ([id number]) on 02/19/2022 12:28:58 PM Referred By: Roselia Mitchell Confirmed By:Vikash Garcia
--- NOTE | 2022-02-19 12:37 | Communication Note ---
Date of Service: February 19, 2022 Sodium is 137. Medicine will sign off.
[2022-02-19] MEDS: chlorproMAZINE HCL 25 MG TAB PO PRN ×2 (13:42→19:11)
[2022-02-19] MEDS: ACETAMINOPHEN 325 MG TAB PO PRN (14:12)
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
[2022-02-19] MEDS ORDERED: risperiDONE 0.5 MG TABLET PO PRN (15:19)
[2022-02-19] MEDS: LORazepam 1 MG TAB PO PRN (19:46)
[2022-02-19] MEDS: ATORVASTATIN 40 MG TAB PO SCH (20:47)
[2022-02-19] MEDS: chlorproMAZINE HCL 25 MG TAB PO SCH (20:54)
[2022-02-19] MEDS: LITHIUM CARBONATE SLOW REL 300 MG TAB PO SCH (20:55)
[2022-02-19] MEDS ORDERED: DIVALPROEX EXTENDED RELEASE 500 MG TAB PO SCH ×2 (21:00→22:00)
[2022-02-20] MEDS: TEMAZEPAM 15 MG CAPSULE PO PRN (01:13)
[2022-02-20] MEDS: chlorproMAZINE HCL 25 MG TAB PO PRN ×3 (01:13→18:34)
[2022-02-20] MEDS: amLODIPine BESYLATE 5 MG TAB PO SCH (08:12)
[2022-02-20] MEDS: allopurinoL 100 MG TAB PO SCH (08:12)
[2022-02-20] MEDS: chlorproMAZINE HCL 25 MG TAB PO SCH ×2 (08:13→20:06)
[2022-02-20] MEDS: FUROSEMIDE 20 MG TAB PO SCH (08:14)
[2022-02-20] MEDS: LITHIUM CARBONATE SLOW REL 300 MG TAB PO SCH ×2 (08:15→20:08)
[2022-02-20] MEDS: METOPROLOL TARTRATE 25 MG TAB PO SCH ×2 (08:15→20:06)
[2022-02-20] MEDS: metFORMIN HCL 500 MG TAB PO SCH (08:15)
[2022-02-20] MEDS: THIAMINE HCL 100 MG TAB PO SCH ×2 (08:17→20:07)
[2022-02-20] MEDS: SODIUM CHLORIDE 1 GM TABLET PO SCH ×2 (08:18→20:07)
[2022-02-20] MEDS: clonazePAM 1 MG TAB PO SCH ×3 (08:19→20:05)
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
[2022-02-20] MEDS: LORazepam 1 MG TAB PO PRN (17:24)
[2022-02-20] MEDS: TEMAZEPAM 15 MG CAPSULE PO SCH (20:05)
[2022-02-20] MEDS: ATORVASTATIN 40 MG TAB PO SCH (20:06)
[2022-02-21] MEDS: chlorproMAZINE HCL 25 MG TAB PO PRN ×2 (02:01→22:58)
[2022-02-21] MEDS: TEMAZEPAM 15 MG CAPSULE PO PRN ×2 (02:02→22:57)
[2022-02-21] MEDS: amLODIPine BESYLATE 5 MG TAB PO SCH (07:32)
[2022-02-21] MEDS: allopurinoL 100 MG TAB PO SCH (07:32)
[2022-02-21] MEDS: LITHIUM CARBONATE SLOW REL 300 MG TAB PO SCH ×2 (07:32→20:32)
[2022-02-21] MEDS: FUROSEMIDE 20 MG TAB PO SCH (07:34)
[2022-02-21] MEDS: chlorproMAZINE HCL 25 MG TAB PO SCH ×2 (07:34→20:31)
[2022-02-21] MEDS: METOPROLOL TARTRATE 25 MG TAB PO SCH ×2 (07:34→20:33)
[2022-02-21] MEDS: metFORMIN HCL 500 MG TAB PO SCH (07:34)
[2022-02-21] MEDS: clonazePAM 1 MG TAB PO SCH ×3 (07:34→20:30)
[2022-02-21] MEDS: SODIUM CHLORIDE 1 GM TABLET PO SCH ×2 (07:35→20:32)
[2022-02-21] MEDS: THIAMINE HCL 100 MG TAB PO SCH ×2 (07:35→20:31)
--- NOTE | 2022-02-21 14:52 | Psychiatric Progress Note ---
Date of Service February 21, 2022 Impression / Recommendations Impression 66 yo male with hx of bipolar disorder, resolving encephalopathy and hyponatremia following [facility] admission and trial of Keppra, acute worsening of britta on the medical floor with need to restart mood stabilizing medication. Diagnostically consistent with acute britta given lack of sleep, mood lability with periods of hypersexuality, delusions, psychomotor agitation and hyperverbal speech. The patient is deemed unstable and requires psychiatric hospitalization for diagnostic clarification, safety and stabilization, medication management and development of further coping skills. 303 commitment since 02/20/2022. MNPR and elopement precautions given severity of psychosis, agitation and hypersexual behavior/intrusive with peers 02/21/22: Ongoing severe acute britta with agitation and disorganization re quiring near constant redirection. Slept a few hours last night. Discussed with his outpatient provider Edie Albarran at [facility] over the phone. He had not been sleeping well since August despite multiple medication trials to help with insomnia. Seemed to get more agitated with higher dose of depakote in outpatient setting. Has history of prolonged admissions once in state of acute britta. Seems to be tolerating medications without side effects. (1) Bipolar disorder with severe britta: (2) Agitation: (3) Acute psychosis: (4) Bipolar 1 disorder: (5) Electrolyte abnormality: (6) Hypertension: Plan 02/21/22: Continue with current medications and tx plan. 02/20/22: Increase Bronson to 300mg qAM and 600mg qhs and then will check level on 02/25/2022. Schedule temazepam with additional prn dose based on previous outpt dose of 30mg qhs. 02/19/22: Discontinue seroquel, depakote, olanzapine, haldol given limited benefit. Start thorazine 50mg BID with prn doses available and Bronson 300mg BID and Klonopin 1mg TID and temazepam 15mg qhs prn. 02/18/22: Continue with seroquel 150mg qhs, start Depakote ER 500mg BID po. Recheck LFTs in 3-5 days. 02/17/22: The patient was admitted to the [facility] ([facility] mental health unit) on q15 min checks (behavioral with suicide precautions) for safety. The patient will participate in group, recreational, and milieu therapies and will be offered additional individual and family sessions as clinically appropriate. Retitrating Seroquel, will resume Depakote. Hospitalist consult for ongoing co- management of sodium in the setting of restarting psych meds. 1500 ml fluid restriction. Haldol IM prn agitation, minimize exposure to Cogentin. Inventory Assets Strengths: supportive , taking PO meds Needs: ongoing medical management, coordination of care with outpatient providers Suicide Risk Level Suicide Risk Level: Moderate (q15 min suicide checks) (acute britta with disorganization but no statements of depression nor SI but prior to presentation to [facility] reported some SI in recent months. ) Risk Factors Assessment Male: Yes : Yes Do You Have Access To A Gun?: Yes Health Problems: Yes Mental Health Diagnoses: Yes Previous Psychiatric Hospitalization: Yes Protective Factors Assessment : Yes Supportive Family: Yes Interval History Identifying Information KEVON BRO is a 66-year-old M who currently lives in [place], has a history of bipolar disorder, and was admitted on 02/17/22 13:24 on a 302 involuntary commitment for britta with psychosis. Chief Complaint "What are you trying to say". Review of Systems Sleep Information Total Hours of Sleep: 2 Sleep Comments: Patient had a couple hours of broken sleep. Up frequently to the bathroom and in and out of day area. Meal Information Percent Meal Consumed - Breakfast: 100 Percent Meal Consumed - Lunch: 100 Percent Meal Consumed - Dinner: 100 Subjective Subjective Patient was seen & assessed and interval progress reviewed with treatment team nursing and social work. Overnight making hypersexual comments, wandering into day room without clothes requiring redirection, more agitated around dinner time. Slept for ~2 hours then awake and more irritable again. Slept briefly on a yoga mat after lying down to stretch his back. 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 Asked for a recieved hot water for tea to which he then added a smith packet and salad dressing packet. Became irritable when nursing attempted to get him a new tea. Making hypersexual comments again today to nursing and SW. Remains very demanding. Physical Exam Psychiatric Orientation: alert, oriented to person and oriented to place Apperance: + disheveled Eye Contact: + fair eye contact (intense) Motor Behavior: + psychomotor agitation Speech: + abnormal rate/rhythm/volume of speech (hyperverbal) Affect: + labile affect, + irritable affect and + angry affect Mood: + irritable mood and + angry mood Thought Process: + tangential thought process, + flight of ideas and + looseness of associations Thought Content: + preoccupation, + paranoid and + delusions Suicidal Thoughts: denies suicidal thoughts Homicidal Thoughts: denies homicidal thoughts (threatening physically at times), denies homicidal plan and denies homicidal intent Hallucinations: no auditory hallucinations (denies, unclear if he's responding to any) and no visual hallucinations Cognition: remote memory grossly intact and language grossly intact; + recent memory not intact and + attention not intact Insight: + severely impaired insight Judgement: + severely impaired judgement Vital Signs (Past 24 Hours) Last Vital Signs Temp 36.3 C L 02/21/22 06:36 Pulse 105 H 02/21/22 06:36 Resp 18 02/21/22 06:36 BP 145/83 H 02/21/22 06:36 Pulse Ox 100 02/20/22 07:05 O2 Del Method 02/20/22 07:05 Results & Data ([facility]) Current Inpatient Medications Current Inpatient Medications: Current Inpatient Medications Acetaminophen (Acetaminophen 325 Mg Tab) 650 mg PO Q4H PRN PRN Reason: Headache or Minor Fever Stop: 03/19/22 13:22 Last Admin: 02/19/22 14:12 Dose: 650 mg Al Hydrox/Mg Hydrox/Simethicone (Aluminum/Magnesium Susp 30 Ml Udc) 30 ml PO Q4H PRN PRN Reason: GI Upset Stop: 03/19/22 13:22 Allopurinol (Allopurinol 100 Mg Tab) 100 mg PO DAILY [facility] Stop: 03/20/22 08:59 Last Admin: 02/21/22 07:32 Dose: 100 mg Amlodipine Besylate (Amlodipine Besylate 5 Mg Tab) 2.5 mg PO QAM [facility] Stop: 03/20/22 08:59 Last Admin: 02/21/22 07:32 Dose: 2.5 mg Atorvastatin Calcium (Atorvastatin 40 Mg Tab) 40 mg PO HS [facility] Stop: 03/19/22 21:59 Last Admin: 02/20/22 20:06 Dose: 40 mg Benztropine Mesylate (Benztropine Mesylate 1 Mg/Ml 2 Ml Amp) 1 mg IM BID PRN PRN Reason: Muscle Spasm Stop: 03/19/22 13:28 Bismuth Subsalicylate (Bismuth Subsalicylate Liqd 236 Ml) 15 ml PO PRN PRN PRN Reason: Loose Stool Stop: 03/19/22 13:22 Chlorpromazine HCl (Chlorpromazine Hcl 25 Mg Tab) 50 mg PO BID [facility] Stop: 03/21/22 20:59 Last Admin: 02/21/22 07:34 Dose: 50 mg Chlorpromazine HCl (Chlorpromazine Hcl 25 Mg Tab) 50 mg PO Q4H PRN PRN Reason: Agitation Stop: 03/21/22 11:29 Last Admin: 02/21/22 02:01 Dose: 50 mg Chlorpromazine HCl (Chlorpromazine Hcl 25 Mg/Ml Amp) 25 mg IM TID PRN PRN Reason: Agitation Stop: 03/21/22 11:19 Clonazepam (Clonazepam 1 Mg Tab) 1 mg PO TID [facility] Stop: 03/21/22 09:01 Last Admin: 02/21/22 14:25 Dose: 1 mg Furosemide (Furosemide 20 Mg Tab) 20 mg PO QAM [facility] Stop: 03/20/22 08:59 Last Admin: 02/21/22 07:34 Dose: 20 mg Bronson Carbonate (Bronson Carbonate Slow Rel 300 Mg Tab) 300 mg PO QD@08 [facility] Stop: 03/23/22 07:59 Last Admin: 02/21/22 07:32 Dose: 300 mg Bronson Carbonate (Bronson Carbonate Slow Rel 300 Mg Tab) 600 mg PO HS [facility] Stop: 03/22/22 21:59 Last Admin: 02/20/22 20:08 Dose: 600 mg Lorazepam (Lorazepam 2 Mg/1 Ml Vial) 1 mg IM Q4H PRN PRN Reason: Agitation Stop: 03/21/22 11:24 Lorazepam (Lorazepam 1 Mg Tab) 1 mg PO Q4H PRN PRN Reason: Agitation Stop: 03/21/22 19:32 Last Admin: 02/20/22 17:24 Dose: 1 mg Magnesium Hydroxide (Magnesium Hydroxide Susp 30 Ml Udc) 30 ml PO DAILY PRN PRN Reason: Constipation Stop: 03/19/22 13:22 Metformin HCl (Metformin Hcl 500 Mg Tab) 500 mg PO QDB [facility] Stop: 03/20/22 08:59 Last Admin: 02/21/22 07:34 Dose: 500 mg Metoprolol Tartrate (Metoprolol Tartrate 25 Mg Tab) 12.5 mg PO BID [facility] Stop: 03/19/22 20:59 Last Admin: 02/21/22 07:34 Dose: 12.5 mg Risperidone (Risperidone 0.5 Mg Tablet) 0.5 mg PO Q4H PRN PRN Reason: Agitation Stop: 03/21/22 15:29 Sodium Chloride (Sodium Chloride 0.65% Na Soln 45 Ml ([place])) 1 - 2 sprays NA PRN PRN PRN Reason: Nasal Dryness/Congestion Stop: 03/19/22 13:22 Sodium Chloride (Sodium Chloride 1 Gm Tablet) 2 gm PO BID [facility] Stop: 03/19/22 20:59 Last Admin: 02/21/22 07:35 Dose: 2 gm Temazepam (Temazepam 15 Mg Capsule) 15 mg PO HS PRN PRN Reason: Insomnia Stop: 03/21/22 11:17 Last Admin: 02/21/22 02:02 Dose: 15 mg Temazepam (Temazepam 15 Mg Capsule) 15 mg PO HS [facility] Stop: 03/22/22 21:59 Last Admin: 02/20/22 20:05 Dose: 15 mg Thiamine HCl (Thiamine Hcl 100 Mg Tab) 100 mg PO BID [facility] Stop: 03/19/22 20:59 Last Admin: 02/21/22 07:35 Dose: 100 mg Mental Health & Subst Abuse Tx Psychiatrist Name of Psychiatrist: Olivier Albarran PA-C Date of Appointment with Psychiatrist: 03/26/22 Time of Appointment with Psychiatrist: 2:10 PM Therapist Name of Therapist: no Cardiovascular Lab Director Name of Cardiovascular Lab Director: no Post Discharge Appointments Primary Care Physician Name Of Family Doctor: [facility]
[2022-02-21] MEDS: TEMAZEPAM 15 MG CAPSULE PO SCH (20:30)
[2022-02-21] MEDS: ATORVASTATIN 40 MG TAB PO SCH (20:31)
[2022-02-21] MEDS: ACETAMINOPHEN 325 MG TAB PO PRN (23:18)
[2022-02-22] MEDS: chlorproMAZINE HCL 25 MG TAB PO PRN (02:58)
--- NOTE | 2022-02-22 08:57 | Psychiatric Progress Note ---
Date of Service February 22, 2022 Impression / Recommendations Impression 66 yo male with hx of bipolar disorder, resolving encephalopathy and hyponatremia following [facility] admission and trial of Keppra, acute worsening of britta on the medical floor with need to restart mood stabilizing medication. Diagnostically consistent with acute britta given lack of sleep, mood lability with periods of hypersexuality, delusions, psychomotor agitation and hyperverbal speech. The patient is deemed unstable and requires psychiatric hospitalization for diagnostic clarification, safety and stabilization, medication management and development of further coping skills. 303 commitment since 02/20/2022. MNPR and elopement precautions given severity of psychosis, agitation and hypersexual behavior/intrusive with peers 02/22/22: Ongoing severe acute britta and still with poor sleep but slightly less irritable today and better able to tolerate prolonged discussions while staying on topic. Tolerating medications well. Rechecking Na+ level tomorrow which he consents to. (1) Bipolar disorder with severe britta: (2) Agitation: (3) Acute psychosis: (4) Bipolar 1 disorder: (5) Electrolyte abnormality: (6) Hypertension: Plan 02/22/22: Recheck Na+ tomorrow. 02/21/22: Continue with current medications and tx plan. 02/20/22: Increase [place] to 300mg qAM and 600mg qhs and then will check level on 02/25/2022. Schedule temazepam with additional prn dose based on previous outpt dose of 30mg qhs. 02/19/22: Discontinue seroquel, depakote, olanzapine, haldol given limited benefit. Start thorazine 50mg BID with prn doses available and [place] 300mg BID and Klonopin 1mg TID and temazepam 15mg qhs prn. 02/18/22: Continue with seroquel 150mg qhs, start Depakote ER 500mg BID po. Recheck LFTs in 3-5 days. 02/17/22: The patient was [facility] ([facility] inpatient mental health unit) on q15 min checks (behavioral with suicide precautions) for safety. The patient will participate in group, recreational, and milieu therapies and will be offered additional individual and family sessions as clinically appropriate. Retitrating Seroquel, will resume Depakote. Hospitalist consult for ongoing co- management of sodium in the setting of restarting psych meds. 1500 ml fluid restriction. Haldol IM prn agitation, minimize exposure to Cogentin. Inventory Assets Strengths: supportive , taking PO meds Needs: ongoing medical management, coordination of care with outpatient providers Suicide Risk Level Suicide Risk Level: Moderate (q15 min suicide checks) (acute britta with disorganization but no statements of depression nor SI but prior to presentation to [facility] reported some SI in recent months. ) Risk Factors Assessment Male: Yes : Yes Do You Have Access To A Gun?: Yes Health Problems: Yes Mental Health Diagnoses: Yes Previous Psychiatric Hospitalization: Yes Protective Factors Assessment : Yes Supportive Family: Yes Interval History Identifying Information KEVON BRO is a 66-year-old M who currently lives in [place], has a history of bipolar disorder, and was admitted on 02/17/22 13:24 on a 302 involuntary commitment for britta with psychosis. Chief Complaint "I like the lithium, it's a salt". Review of Systems Sleep Information Total Hours of Sleep: 2 Sleep Comments: PRN Thorazine x 2 and Restoril given. Pt up and down all night long and pacing unit. Pt remains pleasantly confused with no aggression observed. Meal Information Percent Meal Consumed - Breakfast: 100 Percent Meal Consumed - Lunch: 100 Percent Meal Consumed - Dinner: 100 Subjective Subjective Patient was seen & assessed and interval progress reviewed with treatment team nursing and social work. Did a bit better yesterday but last evening became more irritable demanding hot cocoa overnight. At times trying to sprint in the halls. Only slept 1 hour broken overnight. Tries to attend groups but unable to focus so quickly leaves. Did lie down a few times today. Was able to converse with me. Is pleased with the lithium and recalls that depakote is not a good option currently given his liver changes. 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 Tells me he doesn't need sleep and that his body is used to lack of sleep because he works for an [employer] and the job is "17/09". Physical Exam Psychiatric Orientation: alert, oriented to person and oriented to place Apperance: + disheveled Eye Contact: + fair eye contact (intense) Motor Behavior: + psychomotor agitation Speech: + abnormal rate/rhythm/volume of speech (hyperverbal) Affect: + labile affect and + irritable affect Mood: + irritable mood and + angry mood Thought Process: + tangential thought process, + flight of ideas and + looseness of associations Thought Content: + preoccupation, + paranoid and + delusions Suicidal Thoughts: denies suicidal thoughts Homicidal Thoughts: denies homicidal thoughts (still physically intrusive with poor boundaries but less aggressive ) Hallucinations: no auditory hallucinations (denies, unclear if he's responding to any) and no visual hallucinations Cognition: recent memory grossly intact, remote memory grossly intact and language grossly intact; + attention not intact Insight: + severely impaired insight Judgement: + severely impaired judgement Vital Signs (Past 24 Hours) Last Vital Signs Temp 36.7 C 02/22/22 06:25 Pulse 103 H 02/22/22 06:25 Resp 18 02/22/22 06:25 BP 138/84 02/22/22 06:29 Pulse Ox 100 02/20/22 07:05 O2 Del Method 02/20/22 07:05 Results & Data ([facility]) Current Inpatient Medications Current Inpatient Medications: Current Inpatient Medications Acetaminophen (Acetaminophen 325 Mg Tab) 650 mg PO Q4H PRN PRN Reason: Headache or Minor Fever Stop: 03/19/22 13:22 Last Admin: 02/21/22 23:18 Dose: 650 mg Al Hydrox/Mg Hydrox/Simethicone (Aluminum/Magnesium Susp 30 Ml Udc) 30 ml PO Q4H PRN PRN Reason: GI Upset Stop: 03/19/22 13:22 Allopurinol (Allopurinol 100 Mg Tab) 100 mg PO DAILY [facility] Stop: 03/20/22 08:59 Last Admin: 02/21/22 07:32 Dose: 100 mg Amlodipine Besylate (Amlodipine Besylate 5 Mg Tab) 2.5 mg PO QAM [facility] Stop: 03/20/22 08:59 Last Admin: 02/21/22 07:32 Dose: 2.5 mg Atorvastatin Calcium (Atorvastatin 40 Mg Tab) 40 mg PO HS [facility] Stop: 03/19/22 21:59 Last Admin: 02/21/22 20:31 Dose: 40 mg Benztropine Mesylate (Benztropine Mesylate 1 Mg/Ml 2 Ml Amp) 1 mg IM BID PRN PRN Reason: Muscle Spasm Stop: 03/19/22 13:28 Bismuth Subsalicylate (Bismuth Subsalicylate Liqd 236 Ml) 15 ml PO PRN PRN PRN Reason: Loose Stool Stop: 03/19/22 13:22 Chlorpromazine HCl (Chlorpromazine Hcl 25 Mg Tab) 50 mg PO BID [facility] Stop: 03/21/22 20:59 Last Admin: 02/21/22 20:31 Dose: 50 mg Chlorpromazine HCl (Chlorpromazine Hcl 25 Mg Tab) 50 mg PO Q4H PRN PRN Reason: Agitation Stop: 03/21/22 11:29 Last Admin: 02/22/22 02:58 Dose: 50 mg Chlorpromazine HCl (Chlorpromazine Hcl 25 Mg/Ml Amp) 25 mg IM TID PRN PRN Reason: Agitation Stop: 03/21/22 11:19 Clonazepam (Clonazepam 1 Mg Tab) 1 mg PO TID [facility] Stop: 03/21/22 09:01 Last Admin: 02/21/22 20:30 Dose: 1 mg Furosemide (Furosemide 20 Mg Tab) 20 mg PO QAM [facility] Stop: 03/20/22 08:59 Last Admin: 02/21/22 07:34 Dose: 20 mg [place] Carbonate ([place] Carbonate Slow Rel 300 Mg Tab) 300 mg PO QD@08 [facility] Stop: 03/23/22 07:59 Last Admin: 02/21/22 07:32 Dose: 300 mg [place] Carbonate ([place] Carbonate Slow Rel 300 Mg Tab) 600 mg PO HS [facility] Stop: 03/22/22 21:59 Last Admin: 02/21/22 20:32 Dose: 600 mg Lorazepam (Lorazepam 2 Mg/1 Ml Vial) 1 mg IM Q4H PRN PRN Reason: Agitation Stop: 03/21/22 11:24 Lorazepam (Lorazepam 1 Mg Tab) 1 mg PO Q4H PRN PRN Reason: Agitation Stop: 03/21/22 19:32 Last Admin: 02/20/22 17:24 Dose: 1 mg Magnesium Hydroxide (Magnesium Hydroxide Susp 30 Ml Udc) 30 ml PO DAILY PRN PRN Reason: Constipation Stop: 03/19/22 13:22 Metformin HCl (Metformin Hcl 500 Mg Tab) 500 mg PO QDB [facility] Stop: 03/20/22 08:59 Last Admin: 02/21/22 07:34 Dose: 500 mg Metoprolol Tartrate (Metoprolol Tartrate 25 Mg Tab) 12.5 mg PO BID [facility] Stop: 03/19/22 20:59 Last Admin: 02/21/22 20:33 Dose: 12.5 mg Risperidone (Risperidone 0.5 Mg Tablet) 0.5 mg PO Q4H PRN PRN Reason: Agitation Stop: 03/21/22 15:29 Sodium Chloride (Sodium Chloride 0.65% Na Soln 45 Ml ([place])) 1 - 2 sprays NA PRN PRN PRN Reason: Nasal Dryness/Congestion Stop: 03/19/22 13:22 Sodium Chloride (Sodium Chloride 1 Gm Tablet) 2 gm PO BID [facility] Stop: 03/19/22 20:59 Last Admin: 02/21/22 20:32 Dose: 2 gm Temazepam (Temazepam 15 Mg Capsule) 15 mg PO HS PRN PRN Reason: Insomnia Stop: 03/21/22 11:17 Last Admin: 02/21/22 22:57 Dose: 15 mg Temazepam (Temazepam 15 Mg Capsule) 15 mg PO HS [facility] Stop: 03/22/22 21:59 Last Admin: 02/21/22 20:30 Dose: 15 mg Thiamine HCl (Thiamine Hcl 100 Mg Tab) 100 mg PO BID [facility] Stop: 03/19/22 20:59 Last Admin: 02/21/22 20:31 Dose: 100 mg Mental Health & Subst Abuse Tx Psychiatrist Name of Psychiatrist: Olivier Albarran PA-C Date of Appointment with Psychiatrist: 03/26/22 Time of Appointment with Psychiatrist: 2:10 PM Therapist Name of Therapist: no Applications Coordinator Name of Applications Coordinator: no Post Discharge Appointments Primary Care Physician Name Of Family Doctor: [facility] [place]
[2022-02-22] MEDS: SODIUM CHLORIDE 1 GM TABLET PO SCH ×2 (09:12→20:42)
[2022-02-22] MEDS: metFORMIN HCL 500 MG TAB PO SCH (09:12)
[2022-02-22] MEDS: LITHIUM CARBONATE SLOW REL 300 MG TAB PO SCH ×2 (09:12→20:44)
[2022-02-22] MEDS: amLODIPine BESYLATE 5 MG TAB PO SCH (09:13)
[2022-02-22] MEDS: FUROSEMIDE 20 MG TAB PO SCH (09:13)
[2022-02-22] MEDS: THIAMINE HCL 100 MG TAB PO SCH ×2 (09:13→20:43)
[2022-02-22] MEDS: allopurinoL 100 MG TAB PO SCH (09:13)
[2022-02-22] MEDS: METOPROLOL TARTRATE 25 MG TAB PO SCH ×2 (09:14→20:42)
[2022-02-22] MEDS: chlorproMAZINE HCL 25 MG TAB PO SCH ×2 (09:17→20:44)
[2022-02-22] MEDS: clonazePAM 1 MG TAB PO SCH ×3 (09:17→20:42)
[2022-02-22] MEDS: ACETAMINOPHEN 325 MG TAB PO PRN ×2 (17:40→22:24)
[2022-02-22] MEDS: TEMAZEPAM 15 MG CAPSULE PO SCH (20:41)
[2022-02-22] MEDS: ATORVASTATIN 40 MG TAB PO SCH (20:43)
[2022-02-22] MEDS: TEMAZEPAM 15 MG CAPSULE PO PRN (23:50)
[2022-02-23] MEDS: ACETAMINOPHEN 325 MG TAB PO PRN ×3 (02:11→23:13)
[2022-02-23] MEDS: chlorproMAZINE HCL 25 MG TAB PO PRN ×2 (04:52→23:32)
[2022-02-23 08:16] LABS: BUN Creatinine Ratio 27.8 (10-20); Calcium 9.9 mg/dl (8.5-10.1); Est GFR (African American) 108.5 ml/min; Est GFR (Non-African American) 93.6 ml/min; Potassium 4.3 mmol/L (3.5-5.1)
[2022-02-23] MEDS: LITHIUM CARBONATE SLOW REL 300 MG TAB PO SCH ×2 (09:19→21:10)
[2022-02-23] MEDS: allopurinoL 100 MG TAB PO SCH (09:19)
[2022-02-23] MEDS: amLODIPine BESYLATE 5 MG TAB PO SCH (09:20)
[2022-02-23] MEDS: FUROSEMIDE 20 MG TAB PO SCH (09:21)
[2022-02-23] MEDS: chlorproMAZINE HCL 25 MG TAB PO SCH ×2 (09:21→21:10)
[2022-02-23] MEDS: metFORMIN HCL 500 MG TAB PO SCH (09:21)
[2022-02-23] MEDS: THIAMINE HCL 100 MG TAB PO SCH ×2 (09:22→21:10)
[2022-02-23] MEDS: SODIUM CHLORIDE 1 GM TABLET PO SCH ×2 (09:22→21:10)
[2022-02-23] MEDS: METOPROLOL TARTRATE 25 MG TAB PO SCH ×2 (09:22→21:11)
[2022-02-23] MEDS: clonazePAM 1 MG TAB PO SCH ×3 (09:24→21:10)
--- NOTE | 2022-02-23 09:41 | Psychiatric Progress Note ---
Date of Service February 23, 2022 Impression / Recommendations Impression 66 yo male with hx of bipolar disorder, resolving encephalopathy and hyponatremia following [facility] admission and trial of Keppra, acute worsening of britta on the medical floor with need to restart mood stabilizing medication. Diagnostically consistent with acute britta given lack of sleep, mood lability with periods of hypersexuality, delusions, psychomotor agitation and hyperverbal speech. The patient is deemed unstable and requires psychiatric hospitalization for diagnostic clarification, safety and stabilization, medication management and development of further coping skills. 303 commitment since 02/20/2022. MNPR and elopement precautions given severity of psychosis, agitation and hypersexual behavior/intrusive with peers 02/23/22: Ongoing severe acute britta and still with poor sleep but irritable lessening overall though mood remains very labile. Tolerated blood work and reviewed BMP results which were reassuring for ongoing stability and normal Na+ and Cr remains stable. Pitting edema likely from addition of amlodipine for HTN and his lack of rest/sitting as he is standing or walking for most of the day. Continue to encourage rest and elevating his feet. Adding clonidine to help with HTN and possibly help with sleep. (1) Bipolar disorder with severe britta: (2) Agitation: (3) Acute psychosis: (4) Bipolar 1 disorder: (5) Electrolyte abnormality: (6) Hypertension: Plan 02/23/22: Start clonidine 0.1mg qhs. Recheck BMP in 4 days. Recheck LFTs with Li level on 02/25/2022. Has been using acetaminophen frequently as prn so dose f requency reduced until LFTs are rechecked to ensure stability. 02/22/22: Recheck Na+ tomorrow. 02/21/22: Continue with current medications and tx plan. 02/20/22: Increase [place] to 300mg qAM and 600mg qhs and then will check level on 02/25/2022. Schedule temazepam with additional prn dose based on previous outpt dose of 30mg qhs. 02/19/22: Discontinue seroquel, depakote, olanzapine, haldol given limited benefit. Start thorazine 50mg BID with prn doses available and [place] 300mg BID and Klonopin 1mg TID and temazepam 15mg qhs prn. 02/18/22: Continue with seroquel 150mg qhs, start Depakote ER 500mg BID po. Recheck LFTs in 3-5 days. 02/17/22: The patient was admitted to [facility] ([facility] inpatient mental health unit) on q15 min checks (behavioral with suicide precautions) for safety. The patient will participate in group, recreational, and milieu therapies and will be offered additional individual and family sessions as clinically appropriate. Retitrating Seroquel, will resume Depakote. Hospitalist consult for ongoing co- management of sodium in the setting of restarting psych meds. 1500 ml fluid restriction. Haldol IM prn agitation, minimize exposure to Cogentin. Inventory Assets Strengths: supportive , taking PO meds Needs: ongoing medical management, coordination of care with outpatient providers Suicide Risk Level Suicide Risk Level: Moderate (q15 min suicide checks) (acute britta with disorganization but no statements of depression nor SI but prior to presentation to [facility] reported some SI in recent months. ) Risk Factors Assessment Male: Yes : Yes Do You Have Access To A Gun?: Yes Health Problems: Yes Mental Health Diagnoses: Yes Previous Psychiatric Hospitalization: Yes Protective Factors Assessment : Yes Supportive Family: Yes Interval History Identifying Information KEVON BRO is a 66-year-old M who currently lives in [place], has a history of bipolar disorder, and was admitted on 02/17/22 13:24 on a 302 involuntary commitment for britta with psychosis. Chief Complaint "I'm great". Review of Systems Sleep Information Total Hours of Sleep: 0.45 Sleep Comments: Meal Information Percent Meal Consumed - Breakfast: 100 Percent Meal Consumed - Lunch: 100 Percent Meal Consumed - Dinner: 100 Subjective Subjective Patient was seen & assessed and interval progress reviewed with treatment team nursing and social work. Only slept 45 minutes last night, takes very brief naps when encouraged (usually <15 minutes). Poor boundaries during evening group with irritability. Overnight had some delusions and confusion thinking a nurse was his grandson's girlfriend and telling RN he was going to war tomorrow. Continues to have some pitting edema and reports gout pain. Denies any CP, SOB or other physical symptoms. More elevated mood in the morning with grandiose discussions but after mid-day brief nap more irritable, threw a stress ball, required re- direction. 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) Suicidal Thoughts: denies suicidal thoughts Homicidal Thoughts: denies homicidal thoughts (still physically intrusive with poor boundaries but less aggressive ) Hallucinations: no auditory hallucinations (denies, unclear if he's responding to any) and no visual hallucinations Cognition: recent memory grossly intact, remote memory grossly intact and language grossly intact; + attention not intact Insight: + severely impaired insight Judgement: + severely impaired judgement Vital Signs (Past 24 Hours) Last Vital Signs Temp 36.3 C L 02/23/22 06:36 Pulse 87 02/23/22 06:36 Resp 18 02/23/22 06:36 BP 152/84 H 02/23/22 06:36 Pulse Ox 100 02/20/22 07:05 O2 Del Method 02/20/22 07:05 Results & Data ([facility]) Laboratory Results Laboratory Results - last 24 hr 02/23/22 07:24 Sodium 137 Potassium 4.3 Chloride 102 Carbon Dioxide 30 Anion Gap 5 BUN 22 Creatinine 0.79 Est Cr Clr Drug Dosing 100.0 Est GFR ( Amer) 108.5 Est GFR (Non-Af Amer) 93.6 BUN/Creatinine Ratio 27.8 H Glucose 106 H Calcium 9.9 Current Inpatient Medications Current Inpatient Medications: Current Inpatient Medications Acetaminophen (Acetaminophen 325 Mg Tab) 650 mg PO Q4H PRN PRN Reason: Headache or Minor Fever Stop: 03/19/22 13:22 Last Admin: 02/23/22 02:11 Dose: 650 mg Al Hydrox/Mg Hydrox/Simethicone (Aluminum/Magnesium Susp 30 Ml Udc) 30 ml PO Q4H PRN PRN Reason: GI Upset Stop: 03/19/22 13:22 Allopurinol (Allopurinol 100 Mg Tab) 100 mg PO DAILY [facility] Stop: 03/20/22 08:59 Last Admin: 02/23/22 09:19 Dose: 100 mg Amlodipine Besylate (Amlodipine Besylate 5 Mg Tab) 2.5 mg PO QAM [facility] Stop: 03/20/22 08:59 Last Admin: 02/23/22 09:20 Dose: 2.5 mg Atorvastatin Calcium (Atorvastatin 40 Mg Tab) 40 mg PO HS [facility] Stop: 03/19/22 21:59 Last Admin: 02/22/22 20:43 Dose: 40 mg Benztropine Mesylate (Benztropine Mesylate 1 Mg/Ml 2 Ml Amp) 1 mg IM BID PRN PRN Reason: Muscle Spasm Stop: 03/19/22 13:28 Bismuth Subsalicylate (Bismuth Subsalicylate Liqd 236 Ml) 15 ml PO PRN PRN PRN Reason: Loose Stool Stop: 03/19/22 13:22 Chlorpromazine HCl (Chlorpromazine Hcl 25 Mg Tab) 50 mg PO BID [facility] Stop: 03/21/22 20:59 Last Admin: 02/23/22 09:21 Dose: 50 mg Chlorpromazine HCl (Chlorpromazine Hcl 25 Mg Tab) 50 mg PO Q4H PRN PRN Reason: Agitation Stop: 03/21/22 11:29 Last Admin: 02/23/22 04:52 Dose: 50 mg Chlorpromazine HCl (Chlorpromazine Hcl 25 Mg/Ml Amp) 25 mg IM TID PRN PRN Reason: Agitation Stop: 03/21/22 11:19 Clonazepam (Clonazepam 1 Mg Tab) 1 mg PO TID [facility] Stop: 03/21/22 09:01 Last Admin: 02/23/22 09:24 Dose: 1 mg Furosemide (Furosemide 20 Mg Tab) 20 mg PO QAM [facility] Stop: 03/20/22 08:59 Last Admin: 02/23/22 09:21 Dose: 20 mg [place] Carbonate ([place] Carbonate Slow Rel 300 Mg Tab) 300 mg PO QD@08 [facility] Stop: 03/23/22 07:59 Last Admin: 02/23/22 09:19 Dose: 300 mg [place] Carbonate ([place] Carbonate Slow Rel 300 Mg Tab) 600 mg PO [facility] Stop: 03/22/22 21:59 Last Admin: 02/22/22 20:44 Dose: 600 mg Lorazepam (Lorazepam 2 Mg/1 Ml Vial) 1 mg IM Q4H PRN PRN Reason: Agitation Stop: 03/21/22 11:24 Lorazepam (Lorazepam 1 Mg Tab) 1 mg PO Q4H PRN PRN Reason: Agitation Stop: 03/21/22 19:32 Last Admin: 02/20/22 17:24 Dose: 1 mg Magnesium Hydroxide (Magnesium Hydroxide Susp 30 Ml Udc) 30 ml PO DAILY PRN PRN Reason: Constipation Stop: 03/19/22 13:22 Metformin HCl (Metformin Hcl 500 Mg Tab) 500 mg PO QDB [facility] Stop: 03/20/22 08:59 Last Admin: 02/23/22 09:21 Dose: 500 mg Metoprolol Tartrate (Metoprolol Tartrate 25 Mg Tab) 12.5 mg PO BID [facility] Stop: 03/19/22 20:59 Last Admin: 02/23/22 09:22 Dose: 12.5 mg Risperidone (Risperidone 0.5 Mg Tablet) 0.5 mg PO Q4H PRN PRN Reason: Agitation Stop: 03/21/22 15:29 Sodium Chloride (Sodium Chloride 0.65% Na Soln 45 Ml ([place])) 1 - 2 sprays NA PRN PRN PRN Reason: Nasal Dryness/Congestion Stop: 03/19/22 13:22 Sodium Chloride (Sodium Chloride 1 Gm Tablet) 2 gm PO BID [facility] Stop: 03/19/22 20:59 Last Admin: 02/23/22 09:22 Dose: 2 gm Temazepam (Temazepam 15 Mg Capsule) 15 mg PO HS PRN PRN Reason: Insomnia Stop: 03/21/22 11:17 Last Admin: 02/22/22 23:50 Dose: 15 mg Temazepam (Temazepam 15 Mg Capsule) 15 mg PO HS [facility] Stop: 03/22/22 21:59 Last Admin: 02/22/22 20:41 Dose: 15 mg Thiamine HCl (Thiamine Hcl 100 Mg Tab) 100 mg PO BID [facility] Stop: 03/19/22 20:59 Last Admin: 02/23/22 09:22 Dose: 100 mg Mental Health & Subst Abuse Tx Psychiatrist Name of Psychiatrist: Olivier Albarran PA-C Time of Appointment with Psychiatrist: 2:10 PM Therapist Name of Therapist: no Passenger Vessel Chef Name of Passenger Vessel Chef: no Post Discharge Appointments Primary Care Physician Name Of Family Doctor/PCP: [facility]
[2022-02-23] MEDS ORDERED: ACETAMINOPHEN 325 MG TAB PO PRN (11:56)
[2022-02-23] MEDS: TEMAZEPAM 15 MG CAPSULE PO SCH (21:09)
[2022-02-23] MEDS: ATORVASTATIN 40 MG TAB PO SCH (21:10)
[2022-02-23] MEDS ORDERED: cloNIDine HCL 0.1 MG TAB PO SCH (22:00)
[2022-02-24] MEDS: LITHIUM CARBONATE SLOW REL 300 MG TAB PO SCH ×2 (08:44→21:05)
[2022-02-24] MEDS: allopurinoL 100 MG TAB PO SCH (08:45)
[2022-02-24] MEDS: amLODIPine BESYLATE 5 MG TAB PO SCH (08:45)
[2022-02-24] MEDS: chlorproMAZINE HCL 25 MG TAB PO SCH (08:45)
[2022-02-24] MEDS: FUROSEMIDE 20 MG TAB PO SCH (08:46)
[2022-02-24] MEDS: METOPROLOL TARTRATE 25 MG TAB PO SCH ×2 (08:46→21:06)
[2022-02-24] MEDS: clonazePAM 1 MG TAB PO SCH ×3 (08:46→21:02)
[2022-02-24] MEDS: metFORMIN HCL 500 MG TAB PO SCH (08:46)
[2022-02-24] MEDS: SODIUM CHLORIDE 1 GM TABLET PO SCH ×2 (08:48→21:08)
[2022-02-24] MEDS: THIAMINE HCL 100 MG TAB PO SCH ×2 (08:48→21:08)
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
[2022-02-24] MEDS ORDERED: chlorproMAZINE HCL 25 MG/ML AMP IM ONE (13:15)
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
[2022-02-24] MEDS ORDERED: LORazepam 2 MG/1 ML VIAL IM STA (15:21)
[2022-02-24] MEDS ORDERED: HALOPERIDOL LACTATE 5 MG/ML 1 ML VIAL IM STA (15:21)
--- NOTE | 2022-02-24 15:47 | Communication Note ---
Date of Service: February 24, 2022 Seclusion/Restraint/Emergency Medication Note Date: 02/24/2022 Patient assessed for imminent danger of harm to self/others. Description of events leading to Psychiatric Emergency Intervention: Robert continued to bang intermittently on the childers of the seclusion room then peed on the floor and began to wipe himself using a banana. Security was called and at 3:33pm seclusion door was opened and security used hands on manual restraint at 3:33pm and medications of haldol 10mg and ativan 2mg IM were given at 3:34pm. He then laid on the floor but then agreed to walk into the adjoining bathroom and cleaned up with nursing assistance, changed his clothes and used the bathroom. He then walked back into seclusion with security hands on manual restraint 3:40pm for one minute. He continued to posture in a threatening manner toward me. He was given a snack and the door to seclusion was closed and locked at 3:42pm. Hand was examined from a safe distance with no notable injury. Mental Status Exam: Intense eye contact, demanding, angry loud voice, tangential thought process, delusions, severely impaired insight and judgment. Stable gait. Posturing at times. Impression: Acute psychiatric emergency intervention was necessary to reduce the patient's imminent risk of harm to others/themself. Rationale for this seclusion/restraint order: refer to seclusion/restraint order Emergency Medication administered: Haldol 10mg IM and Ativan 2mg IM Rationale for emergency medications (if administered): refer to seclusion/restraint order Patient response: Still agitated but laid down on mattress in seclusion briefly. Still banging on childers of seclusion intermittently. Plan: Continue to closely monitor patient as per seclusion/restraint criteria. No evidence of any physical harm, decompensation nor physical complaints. - Intervention initiated at: refer to seclusion/restraint order - Emergency meds (if administered): Haldol 10mg IM and Ativan 2mg IM -Debriefing occurred at:3:45pm Tina Bowling MD
[2022-02-24] MEDS: TEMAZEPAM 15 MG CAPSULE PO SCH (21:02)
[2022-02-24] MEDS: ATORVASTATIN 40 MG TAB PO SCH (21:03)
[2022-02-25] MEDS: ACETAMINOPHEN 325 MG TAB PO PRN ×2 (04:57→22:16)
[2022-02-25] MEDS: LITHIUM CARBONATE SLOW REL 300 MG TAB PO SCH ×2 (08:17→21:11)
[2022-02-25] MEDS: allopurinoL 100 MG TAB PO SCH (08:17)
[2022-02-25] MEDS: amLODIPine BESYLATE 5 MG TAB PO SCH (08:18)
[2022-02-25] MEDS: FUROSEMIDE 20 MG TAB PO SCH (08:19)
[2022-02-25] MEDS: metFORMIN HCL 500 MG TAB PO SCH (08:19)
[2022-02-25] MEDS: clonazePAM 1 MG TAB PO SCH ×3 (08:19→21:06)
[2022-02-25] MEDS: METOPROLOL TARTRATE 25 MG TAB PO SCH ×2 (08:20→21:07)
[2022-02-25] MEDS: THIAMINE HCL 100 MG TAB PO SCH ×2 (08:20→21:09)
[2022-02-25] MEDS: SODIUM CHLORIDE 1 GM TABLET PO SCH ×2 (08:20→21:09)
--- NOTE | 2022-02-25 09:48 | Psychiatric Progress Note ---
Date of Service February 25, 2022 Impression / Recommendations Impression 66 yo male with hx of bipolar disorder, resolving encephalopathy and hyponatremia following [facility] admission and trial of Keppra, acute worsening of britta on the medical floor with need to restart mood stabilizing medication. Diagnostically consistent with acute britta given lack of sleep, mood lability with periods of hypersexuality, delusions, psychomotor agitation and hyperverbal speech. The patient is deemed unstable and requires psychiatric hospitalization for diagnostic clarification, safety and stabilization, medication management and development of further coping skills. 303 commitment since 02/20/2022. MNPR and elopement precautions given severity of psychosis, agitation and hypersexual behavior/intrusive with peers 02/25/22: Ongoing severe acute britta and very irritable today but less aggressive compared with yesterday and was able to sleep a bit last night with higher dose of thorazine. Labwork notable for Li level of 0.9 within desired therapeutic range for acute britta. LFTs trending down which is encouraging. (1) Bipolar disorder with severe britta: (2) Agitation: (3) Acute psychosis: (4) Bipolar 1 disorder: (5) Electrolyte abnormality: (6) Hypertension: Plan 02/25/2022: Continue with current medications and tx plan. 02/24/22: Discontinue clonidine, no benefit and possibly contributed to worsening irritability/agitation. Increase Thorazine to 150mg BID po. 02/23/22: Start clonidine 0.1mg qhs. Recheck BMP in 4 days. Recheck LFTs with Li level on 02/25/2022. Has been using acetaminophen frequently as prn so dose freque ncy reduced until LFTs are rechecked to ensure stability. 02/22/22: Recheck Na+ tomorrow. 02/21/22: Continue with current medications and tx plan. 02/20/22: Increase [place] to 300mg qAM and 600mg qhs and then will check level on 02/25/2022. Schedule temazepam with additional prn dose based on previous outpt dose of 30mg qhs. 02/19/22: Discontinue seroquel, depakote, olanzapine, haldol given limited benefit. Start thorazine 50mg BID with prn doses available and [place] 300mg BID and Klonopin 1mg TID and temazepam 15mg qhs prn. 02/18/22: Continue with seroquel 150mg qhs, start Depakote ER 500mg BID po. Recheck LFTs in 3-5 days. 02/17/22: The patient was admitted to the [facility] on q15 min checks (behavioral with suicide precautions) for safety. The patient will participate in group, recreational, and milieu therapies and will be offered additional individual and family sessions as clinically appropriate. Retitrating Seroquel, will resume Depakote. Hospitalist consult for ongoing co- management of sodium in the setting of restarting psych meds. 1500 ml fluid restriction. Haldol IM prn agitation, minimize exposure to Cogentin. Inventory Assets Strengths: supportive , taking PO meds Needs: ongoing medical management, coordination of care with outpatient providers Suicide Risk Level Suicide Risk Level: Moderate (q15 min suicide checks) (acute britta with disorganization but no statements of depression nor SI but prior to presentation to [facility] reported some SI in recent months. ) Risk Factors Assessment Male: Yes : Yes Do You Have Access To A Gun?: Yes Health Problems: Yes Mental Health Diagnoses: Yes Previous Psychiatric Hospitalization: Yes Protective Factors Assessment : Yes Supportive Family: Yes Interval History Identifying Information KEVON BRO is a 66-year-old M who currently lives in [place], has a history of bipolar disorder, and was admitted on 02/17/22 13:24 on a 302 involuntary commitment for britta with psychosis. 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 Review of Systems Sleep Information Total Hours of Sleep: 4.5 Sleep Comments: Awoke early and complained of pain in feet. Meal Information Percent Meal Consumed - Breakfast: 100 Percent Meal Consumed - Lunch: 0 Percent Meal Consumed - Dinner: 100 Subjective Subjective Patient was seen & assessed and interval progress reviewed with treatment team nursing and social work. Came out of seclusion in the evening after sleeping about 45min-1hr after getting IM haldol and ativan. Irritable at times overnight but did slept a bit more, about 4.5 hours. This morning irritable and demanding at times but not aggressive. Eating and did allow labwork. Unable to tolerate extended discussion. Physical Exam Psychiatric Orientation: alert, oriented to person and oriented to place Apperance: appropriately dressed and + disheveled Eye Contact: good eye contact (intense) Motor Behavior: + psychomotor agitation and + tremor (bilateral hands ) Speech: + loud speech; + abnormal rate/rhythm/volume of speech (hyperverbal) Affect: + labile affect and + irritable affect Mood: + irritable mood; no depressed mood Thought Process: + tangential thought process, + flight of ideas and + looseness of associations Thought Content: + preoccupation (grandiose at times), + paranoid and + delusions (, war, code names) Suicidal Thoughts: denies suicidal thoughts Homicidal Thoughts: denies homicidal thoughts (still physically intrusive with poor boundaries but less aggressive today ) Hallucinations: no auditory hallucinations (denies, unclear if he's responding to any) and no visual hallucinations Cognition: recent memory grossly intact, remote memory grossly intact and language grossly intact; + attention not intact Insight: + severely impaired insight Judgement: + severely impaired judgement Vital Signs (Past 24 Hours) Last Vital Signs Temp 36.4 C L 02/25/22 06:41 Pulse 82 02/25/22 06:42 Resp 18 02/25/22 06:41 BP 108/75 02/25/22 06:42 Pulse Ox 100 02/20/22 07:05 O2 Del Method 02/20/22 07:05 Results & Data ([facility]) Laboratory Results Laboratory Results - last 24 hr 02/25/22 02/25/22 02/25/22 07:37 07:37 07:37 AST 50 H ALT 60 H [place] 0.9 Current Inpatient Medications Current Inpatient Medications: Current Inpatient Medications Acetaminophen (Acetaminophen 325 Mg Tab) 650 mg PO Q6H PRN PRN Reason: pain or headache Stop: 03/25/22 11:55 Last Admin: 02/25/22 04:57 Dose: 650 mg Al Hydrox/Mg Hydrox/Simethicone (Aluminum/Magnesium Susp 30 Ml Udc) 30 ml PO Q4H PRN PRN Reason: GI Upset Stop: 03/19/22 13:22 Allopurinol (Allopurinol 100 Mg Tab) 100 mg PO DAILY [facility] Stop: 03/20/22 08:59 Last Admin: 02/25/22 08:17 Dose: 100 mg Amlodipine Besylate (Amlodipine Besylate 5 Mg Tab) 2.5 mg PO QAM [facility] Stop: 03/20/22 08:59 Last Admin: 02/25/22 08:18 Dose: 2.5 mg Atorvastatin Calcium (Atorvastatin 40 Mg Tab) 40 mg PO HS [facility] Stop: 03/19/22 21:59 Last Admin: 02/24/22 21:03 Dose: 40 mg Benztropine Mesylate (Benztropine Mesylate 1 Mg/Ml 2 Ml Amp) 1 mg IM BID PRN PRN Reason: Muscle Spasm Stop: 03/19/22 13:28 Bismuth Subsalicylate (Bismuth Subsalicylate Liqd 236 Ml) 15 ml PO PRN PRN PRN Reason: Loose Stool Stop: 03/19/22 13:22 Chlorpromazine HCl (Chlorpromazine Hcl 25 Mg Tab) 50 mg PO Q4H PRN PRN Reason: Agitation Stop: 03/21/22 11:29 Last Admin: 02/23/22 23:32 Dose: 50 mg Chlorpromazine HCl (Chlorpromazine Hcl 25 Mg/Ml Amp) 25 mg IM TID PRN PRN Reason: Agitation Stop: 03/21/22 11:19 Last Admin: 02/24/22 10:46 Dose: 25 mg Chlorpromazine HCl (Chlorpromazine Hcl 100 Mg Tab) 150 mg PO BID [facility] Stop: 03/26/22 20:59 Last Admin: 02/25/22 08:18 Dose: 150 mg Clonazepam (Clonazepam 1 Mg Tab) 1 mg PO TID [facility] Stop: 03/21/22 09:01 Last Admin: 02/25/22 08:19 Dose: 1 mg Furosemide (Furosemide 20 Mg Tab) 20 mg PO QAM [facility] Stop: 03/20/22 08:59 Last Admin: 02/25/22 08:19 Dose: 20 mg [place] Carbonate ([place] Carbonate Slow Rel 300 Mg Tab) 300 mg PO QD@08 [facility] Stop: 03/23/22 07:59 Last Admin: 02/25/22 08:17 Dose: 300 mg [place] Carbonate ([place] Carbonate Slow Rel 300 Mg Tab) 600 mg PO HS [facility] Stop: 03/22/22 21:59 Last Admin: 02/24/22 21:05 Dose: 600 mg Lorazepam (Lorazepam 2 Mg/1 Ml Vial) 1 mg IM Q4H PRN PRN Reason: Agitation Stop: 03/21/22 11:24 Lorazepam (Lorazepam 1 Mg Tab) 1 mg PO Q4H PRN PRN Reason: Agitation Stop: 03/21/22 19:32 Last Admin: 02/20/22 17:24 Dose: 1 mg Magnesium Hydroxide (Magnesium Hydroxide Susp 30 Ml Udc) 30 ml PO DAILY PRN PRN Reason: Constipation Stop: 03/19/22 13:22 Metformin HCl (Metformin Hcl 500 Mg Tab) 500 mg PO QDB [facility] Stop: 03/20/22 08:59 Last Admin: 02/25/22 08:19 Dose: 500 mg Metoprolol Tartrate (Metoprolol Tartrate 25 Mg Tab) 12.5 mg PO BID [facility] Stop: 03/19/22 20:59 Last Admin: 02/25/22 08:20 Dose: 12.5 mg Risperidone (Risperidone 0.5 Mg Tablet) 0.5 mg PO Q4H PRN PRN Reason: Agitation Stop: 03/21/22 15:29 Sodium Chloride (Sodium Chloride 0.65% Na Soln 45 Ml ([place])) 1 - 2 sprays NA PRN PRN PRN Reason: Nasal Dryness/Congestion Stop: 03/19/22 13:22 Sodium Chloride (Sodium Chloride 1 Gm Tablet) 2 gm PO BID [facility] Stop: 03/19/22 20:59 Last Admin: 02/25/22 08:20 Dose: 2 gm Temazepam (Temazepam 15 Mg Capsule) 30 mg PO HS [facility] Stop: 03/26/22 21:59 Last Admin: 02/24/22 21:02 Dose: 30 mg Thiamine HCl (Thiamine Hcl 100 Mg Tab) 100 mg PO BID [facility] Stop: 03/19/22 20:59 Last Admin: 02/25/22 08:20 Dose: 100 mg Mental Health & Subst Abuse Tx Psychiatrist Name of Psychiatrist: Olivier Albarran PA-C Time of Appointment with Psychiatrist: 2:10 PM Therapist Name of Therapist: no Mobile Nurse Name of Mobile Nurse: no Post Discharge Appointments Primary Care Physician Name Of Family Doctor/PCP: [facility] Audrey
[2022-02-25] MEDS ORDERED: chlorproMAZINE HCL 25 MG/ML AMP IM PRN (19:12)
[2022-02-25] MEDS ORDERED: ZOLPIDEM TARTRATE 5 MG TAB PO PRN (19:15)
[2022-02-25] MEDS ORDERED: LORazepam 2 MG/1 ML VIAL IM PRN (19:15)
--- NOTE | 2022-02-25 19:20 | Communication Note ---
Date of Service: February 25, 2022 case reviewed by [employer] given complexity of symptoms including seclusion and aggression to staff 02/24/22 into early 02/25/22. Patient known to me from alphonse shaw in the inpatient stay. Is therapeutic on lithium, requiring regular dosing of benzos and increasing doses of thorazine with ongiong poor sleep, though improved to 4.5 hrs last pm and is reportedly less irritable this pm. Hyponatremia resolved. Will discuss more formal behavioral plan in treatment team, shift to TID dosing of thorazine 100/100/200. Offer Ambien prn. Historically britta has taken time to clear with poor sleep for some time leading up to hospital stay. VS reviewed. D/C prn Risperdal as redundant and will adjust IM dosing as sedation/gait issues haven't been a problem.
[2022-02-25] MEDS: ATORVASTATIN 40 MG TAB PO SCH (21:10)
[2022-02-25] MEDS: TEMAZEPAM 15 MG CAPSULE PO SCH (21:12)
[2022-02-26] MEDS: ACETAMINOPHEN 325 MG TAB PO PRN ×2 (05:17→20:01)
[2022-02-26] MEDS: LITHIUM CARBONATE SLOW REL 300 MG TAB PO SCH ×2 (07:27→20:39)
[2022-02-26] MEDS: amLODIPine BESYLATE 5 MG TAB PO SCH (07:32)
[2022-02-26] MEDS: allopurinoL 100 MG TAB PO SCH (07:32)
[2022-02-26] MEDS: FUROSEMIDE 20 MG TAB PO SCH (07:33)
[2022-02-26] MEDS: METOPROLOL TARTRATE 25 MG TAB PO SCH ×2 (07:33→20:35)
[2022-02-26] MEDS: THIAMINE HCL 100 MG TAB PO SCH ×2 (07:34→20:36)
[2022-02-26] MEDS: SODIUM CHLORIDE 1 GM TABLET PO SCH ×2 (07:34→20:36)
[2022-02-26] MEDS: metFORMIN HCL 500 MG TAB PO SCH (07:35)
[2022-02-26] MEDS: clonazePAM 1 MG TAB PO SCH ×2 (07:36→16:53)
[2022-02-26] MEDS ORDERED: haloperidoL 5 MG TAB PO STA (10:00)
[2022-02-26] MEDS ORDERED: haloperidoL 5 MG TAB PO ONE (10:08)
[2022-02-26] MEDS ORDERED: HALOPERIDOL LACTATE 5 MG/ML 1 ML VIAL IM PRN (13:20)
[2022-02-26] MEDS ORDERED: BENZTROPINE MESYLATE 1 MG/ML 2 ML AMP IM PRN (13:20)
--- NOTE | 2022-02-26 13:37 | Psychiatric Progress Note ---
Date of Service February 26, 2022 Impression / Recommendations Impression 66 yo male with hx of bipolar disorder, resolving encephalopathy and hyponatremia following [facility] admission and trial of Keppra, acute worsening of britta on the medical floor with need to restart mood stabilizing medication. Diagnostically consistent with acute britta given lack of sleep, mood lability with periods of hypersexuality, delusions, psychomotor agitation and hyperverbal speech. The patient is deemed unstable and requires psychiatric hospitalization for diagnostic clarification, safety and stabilization, medication management and development of further coping skills. 303 commitment since 02/20/2022. MNPR and elopement precautions given severity of psychosis, agitation and hypersexual behavior/intrusive with peers, aggression on unit 02/26/22: complex presentation of britta, initially complicated by medical, remains labile, no significant sustained improvement. Ongoing poor sleep and irritability. Haldol seems more effective than benzo or thorazine prns. (1) Bipolar disorder with severe britta: (2) Agitation: (3) Acute psychosis: (4) Bipolar 1 disorder: (5) Electrolyte abnormality: (6) Hypertension: Plan 02/26/22: Thorazine now TID, will increase hs dose. As just received Haldol PO prn, will shift Klonopin to 1 mg BID meals so no longer TID and coadmin with other sedating agents, cannot exclude that benzos are disinhibiting. Will focus on Thorazine titration and continue trial of Ambien in place of Restoril which was ineffective inpatient and outpatient given ongoing britta. Want to avoid TCAs given britta and hx of QTc issues. Behavior plan. 02/25/2022: Continue with current medications and tx plan. 02/24/22: Discontinue clonidine, no benefit and possibly contributed to worsening irritability/agitation. Increase Thorazine to 150mg BID po. 02/23/22: Start clonidine 0.1mg qhs. Recheck BMP in 4 days. Recheck LFTs with Li level on 02/25/2022. Has been using acetaminophen frequently as prn so dose frequency reduced until LFTs are rechecked to ensure stability. 02/22/22: Recheck Na+ tomorrow. 02/21/22: Continue with current medications and tx plan. 02/20/22: Increase [place] to 300mg qAM and 600mg qhs and then will check level on 02/25/2022. Schedule temazepam with additional prn dose based on previous outpt dose of 30mg qhs. 02/19/22: Discontinue seroquel, depakote, olanzapine, haldol given limited benefit. Start thorazine 50mg BID with prn doses available and [place] 300mg BID and Klonopin 1mg TID and temazepam 15mg qhs prn. 02/18/22: Continue with seroquel 150mg qhs, start Depakote ER 500mg BID po. Recheck LFTs in 3-5 days. 02/17/22: The patient was admitted to the [facility] on q15 min checks (behavioral with suicide precautions) for safety. The patient will participate in group, recreational, and milieu therapies and will be offered additional individual and family sessions as clinically appropriate. Retitrating Seroquel, will resume Depakote. Hospitalist consult for ongoing co- management of sodium in the setting of restarting psych meds. 1500 ml fluid restriction. Haldol IM prn agitation, minimize exposure to Cogentin. Inventory Assets Strengths: supportive , taking PO meds Needs: ongoing medical management, coordination of care with outpatient providers Suicide Risk Level Suicide Risk Level: Moderate (q15 min suicide checks) (acute britta with disorgan ization but no statements of depression nor SI but prior to presentation to [facility] reported some SI in recent months. ) Risk Factors Assessment Male: Yes : Yes Do You Have Access To A Gun?: Yes Health Problems: Yes Mental Health Diagnoses: Yes Previous Psychiatric Hospitalization: Yes Protective Factors Assessment : Yes Supportive Family: Yes Interval History Identifying Information KEVON BRO is a 66-year-old M who currently lives in [place], has a history of bipolar disorder, and was admitted on 02/17/22 13:24 on a 302 involuntary commitment for britta with psychosis. Chief Complaint "You can just stop right there you are pissing me off". Review of Systems Sleep Information Total Hours of Sleep: 2.5 Sleep Comments: Patient had difficulty falling asleep and received Ambien. 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 Meal Information Percent Meal Consumed - Breakfast: 100 Percent Meal Consumed - Lunch: 100 Percent Meal Consumed - Dinner: 50 Subjective Subjective Patient was seen & assessed and interval progress reviewed with treatment team. Very challenging behaviors since my last contact with patient including extended seclusion and aggression toward staff. Yesterday he was more redirectible but this am yelling at staff, cursing. Is accepting PO meds but when I suggested his sleep was poor and didn't respond to his flirtation he became very irritable and ended interview. Did escalate soon after and given 10 mg Haldol with some benefit in that able to stay in [place] for period of time and behavior plan was reviewed by charge nurse with security present. Has been demanding around extra snacks after breaking door lock to community fridge and not respecting personal boundaries. Patient was told must maintain 6 ft and if not redirectible that security will be called as he has been aggressive to staff and unacceptable. He continues to blame others/refer to staff in derogatory terms. Physical Exam Psychiatric Orientation: alert, oriented to person and oriented to place Apperance: appropriately dressed and appropriately groomed Eye Contact: good eye contact (intense) Motor Behavior: + tremor (bilateral hands ); + abnormal motor movements (restless) Speech: + loud speech; + abnormal rate/rhythm/volume of speech (hyperverbal) Affect: + labile affect and + irritable affect Mood: + irritable mood Thought Process: + tangential thought process Thought Content: + preoccupation (grandiose at times) Suicidal Thoughts: denies suicidal thoughts Homicidal Thoughts: denies homicidal thoughts (still physically intrusive with poor boundaries but less aggressive today ), denies homicidal plan and denies homicidal intent Hallucinations: no auditory hallucinations (denies, unclear if he's responding to any) and no visual hallucinations Cognition: language grossly intact; + attention not intact Insight: + impaired insight Judgement: + impaired judgement Vital Signs (Past 24 Hours) Last Vital Signs Temp 36.6 C 02/26/22 06:40 Pulse 89 02/26/22 06:40 Resp 18 02/26/22 06:40 BP 117/67 02/26/22 06:40 Pulse Ox 100 02/20/22 07:05 O2 Del Method 02/20/22 07:05 Results & Data ([facility]) Current Inpatient Medications Current Inpatient Medications: Current Inpatient Medications Acetaminophen (Acetaminophen 325 Mg Tab) 650 mg PO Q6H PRN PRN Reason: pain or headache Stop: 03/25/22 11:55 Last Admin: 02/26/22 05:17 Dose: 650 mg Al Hydrox/Mg Hydrox/Simethicone (Aluminum/Magnesium Susp 30 Ml Udc) 30 ml PO Q4H PRN PRN Reason: GI Upset Stop: 03/19/22 13:22 Allopurinol (Allopurinol 100 Mg Tab) 100 mg PO DAILY [facility] Stop: 03/20/22 08:59 Last Admin: 02/26/22 07:32 Dose: 100 mg Amlodipine Besylate (Amlodipine Besylate 5 Mg Tab) 2.5 mg PO QAM [facility] Stop: 03/20/22 08:59 Last Admin: 02/26/22 07:32 Dose: 2.5 mg Atorvastatin Calcium (Atorvastatin 40 Mg Tab) 40 mg PO HS [facility] Stop: 03/19/22 21:59 Last Admin: 02/25/22 21:10 Dose: 40 mg Benztropine Mesylate (Benztropine Mesylate 1 Mg/Ml 2 Ml Amp) 1 mg IM Q6 PRN PRN Reason: Muscle Spasm Stop: 03/28/22 13:19 Bismuth Subsalicylate (Bismuth Subsalicylate Liqd 236 Ml) 15 ml PO PRN PRN PRN Reason: Loose Stool Stop: 03/19/22 13:22 Chlorpromazine HCl (Chlorpromazine Hcl 100 Mg Tab) 100 mg PO [id number] [facility] Stop: 03/28/22 06:59 Last Admin: 02/26/22 06:25 Dose: 100 mg Chlorpromazine HCl (Chlorpromazine Hcl 100 Mg Tab) 300 mg PO [facility] Stop: 03/28/22 21:59 Clonazepam (Clonazepam 1 Mg Tab) 1 mg PO BIDM [facility] Stop: 03/28/22 17:44 Furosemide (Furosemide 20 Mg Tab) 20 mg PO QAM [facility] Stop: 03/20/22 08:59 Last Admin: 02/26/22 07:33 Dose: 20 mg Haloperidol (Haloperidol 5 Mg Tab) 5 mg PO Q4 PRN PRN Reason: Anxiety/Agitation Stop: 03/28/22 13:23 Haloperidol Lactate (Haloperidol Lactate 5 Mg/Ml 1 Ml Vial) 10 mg IM Q6 PRN PRN Reason: Agitation Stop: 03/28/22 13:19 [place] Carbonate ([place] Carbonate Slow Rel 300 Mg Tab) 300 mg PO QD@08 [facility] Stop: 03/23/22 07:59 Last Admin: 02/26/22 07:27 Dose: 300 mg [place] Carbonate ([place] Carbonate Slow Rel 300 Mg Tab) 600 mg PO HS [facility] Stop: 03/22/22 21:59 Last Admin: 02/25/22 21:11 Dose: 600 mg Lorazepam (Lorazepam 2 Mg/1 Ml Vial) 2 mg IM Q6 PRN PRN Reason: Agitation Stop: 03/21/22 11:24 Magnesium Hydroxide (Magnesium Hydroxide Susp 30 Ml Udc) 30 ml PO DAILY PRN PRN Reason: Constipation Stop: 03/19/22 13:22 Metformin HCl (Metformin Hcl 500 Mg Tab) 500 mg PO QDB [facility] Stop: 03/20/22 08:59 Last Admin: 02/26/22 07:35 Dose: 500 mg Metoprolol Tartrate (Metoprolol Tartrate 25 Mg Tab) 12.5 mg PO BID [facility] Stop: 03/19/22 20:59 Last Admin: 02/26/22 07:33 Dose: 12.5 mg Sodium Chloride (Sodium Chloride 0.65% Na Soln 45 Ml ([place])) 1 - 2 sprays NA PRN PRN PRN Reason: Nasal Dryness/Congestion Stop: 03/19/22 13:22 Sodium Chloride (Sodium Chloride 1 Gm Tablet) 2 gm PO BID [facility] Stop: 03/19/22 20:59 Last Admin: 02/26/22 07:34 Dose: 2 gm Thiamine HCl (Thiamine Hcl 100 Mg Tab) 100 mg PO BID [facility] Stop: 03/19/22 20:59 Last Admin: 02/26/22 07:34 Dose: 100 mg Zolpidem Tartrate (Zolpidem Tartrate 10 Mg Tab) 10 mg PO HS PRN PRN Reason: Sleep Stop: 03/27/22 19:14 Mental Health & Subst Abuse Tx Psychiatrist Name of Psychiatrist: Olivier Albarran PA-C Time of Appointment with Psychiatrist: 2:10 PM Therapist Name of Therapist: no Laboratory Chief Name of Laboratory Chief: no Post Discharge Appointments Primary Care Physician Name Of Family Doctor/PCP: [facility] Audrey
[2022-02-26] MEDS: ATORVASTATIN 40 MG TAB PO SCH (20:37)
[2022-02-26] MEDS: haloperidoL 5 MG TAB PO PRN (21:26)
[2022-02-27] MEDS: ZOLPIDEM TARTRATE 10 MG TAB PO PRN (01:20)
[2022-02-27] MEDS: ACETAMINOPHEN 325 MG TAB PO PRN ×2 (03:53→21:07)
[2022-02-27] MEDS: allopurinoL 100 MG TAB PO SCH (08:19)
[2022-02-27] MEDS: metFORMIN HCL 500 MG TAB PO SCH (08:20)
[2022-02-27] MEDS: FUROSEMIDE 20 MG TAB PO SCH (08:20)
[2022-02-27] MEDS: amLODIPine BESYLATE 5 MG TAB PO SCH (08:20)
[2022-02-27] MEDS: clonazePAM 1 MG TAB PO SCH (08:20)
[2022-02-27] MEDS: SODIUM CHLORIDE 1 GM TABLET PO SCH ×2 (08:21→21:02)
[2022-02-27] MEDS: METOPROLOL TARTRATE 25 MG TAB PO SCH ×2 (08:21→21:02)
[2022-02-27] MEDS: THIAMINE HCL 100 MG TAB PO SCH ×2 (08:21→21:03)
--- NOTE | 2022-02-27 08:43 | Psychiatric Progress Note ---
Date of Service February 27, 2022 Impression / Recommendations Impression 66 yo male with hx of bipolar disorder, resolving encephalopathy and hyponatremia following [facility] admission and trial of Keppra, acute worsening of britta on the medical floor with need to restart mood stabilizing medication. Diagnostically consistent with acute britta given lack of sleep, mood lability with periods of hypersexuality, delusions, psychomotor agitation and hyperverbal speech. The patient is deemed unstable and requires psychiatric hospitalization for diagnostic clarification, safety and stabilization, medication management and development of further coping skills. 303 commitment since 02/20/2022. MNPR and elopement precautions given severity of psychosis, agitation and hypersexual behavior/intrusive with peers, aggression on unit 02/27/22: complex presentation of britta, initially complicated by medical, remains labile, disrupted sleep, no evidence of orthostasis but likely maximized dosing of thorazine at this point, will reserve Ambien for middle of night awakenings. (1) Bipolar disorder with severe britta: (2) Agitation: (3) Acute psychosis: (4) Bipolar 1 disorder: (5) Electrolyte abnormality: (6) Hypertension: Plan 02/27/22: continue benzo taper, behaviorally no worse. sodium stable with increase of antipsychotics, behavioral plan 02/26/22: Thorazine now TID, will increase hs dose. As just received Haldol PO prn, will shift Klonopin to 1 mg BID meals so no longer TID and coadmin with other sedating agents, cannot exclude that benzos are disinhibiting. Will focus on Thorazine titration and continue trial of Ambien in place of Restoril which was ineffective inpatient and outpatient given ongoing britta. Want to avoid TCAs given britta and hx of QTc issues. Behavior plan. 02/25/22: Continue with current medications and tx plan. 02/24/22: Discontinue clonidine, no benefit and possibly contributed to worsening irritability/agitation. Increase Thorazine to 150mg BID po. 02/23/22: Start clonidine 0.1mg qhs. Recheck BMP in 4 days. Recheck LFTs with Li level on 02/25/2022. Has been using acetaminophen frequently as prn so dose frequency reduced until LFTs are rechecked to ensure stability. 02/22/22: Recheck Na+ tomorrow. 02/21/22: Continue with current medications and tx plan. 02/20/22: Increase Jessie to 300mg qAM and 600mg qhs and then will check level on 02/25/2022. Schedule temazepam with additional prn dose based on previous outpt dose of 30mg qhs. 02/19/22: Discontinue seroquel, depakote, olanzapine, haldol given limited benefit. Start thorazine 50mg BID with prn doses available and Jessie 300mg BID and Klonopin 1mg TID and temazepam 15mg qhs prn. 02/18/22: Continue with seroquel 150mg qhs, start Depakote ER 500mg BID po. Recheck LFTs in 3-5 days. 02/17/22: The patient was admitted to the [facility] ([facility]) on q15 min checks (behavioral with suicide precautions) for safety. The patient will participate in group, recreational, and milieu therapies and will be offered additional individual and family sessions as clinically appropriate. Retitrating Seroquel, will resume Depakote. Hospitalist consult for ongoing co- management of sodium in the setting of restarting psych meds. 1500 ml fluid restriction. Haldol IM prn agitation, minimize exposure to Cogentin. Inventory Assets Strengths: supportive , taking PO meds Needs: ongoing medical management, coordination of care with outpatient providers Suicide Risk Level Suicide Risk Level: Moderate (q15 min suicide checks) (acute britta with disorganization but no statements of depression nor SI but prior to presentation to [facility] reported some SI in recent months. ) Risk Factors Assessment Male: Yes : Yes Do You Have Access To A Gun?: Yes Health Problems: Yes Mental Health Diagnoses: Yes Previous Psychiatric Hospitalization: Yes Protective Factors Assessment : Yes Supportive Family: Yes Interval History Identifying Information KEVON BRO is a 66-year-old M who currently lives in [place], has a history of bipolar disorder, and was admitted on 02/17/22 13:24 on a 302 involuntary c ommitment for britta with psychosis. Chief Complaint "this place is going to shake me down for a spoon." Review of Systems Sleep Information Total Hours of Sleep: 3 Sleep Comments: pt on q-15 minute checks Meal Information Percent Meal Consumed - Breakfast: 100 Percent Meal Consumed - Lunch: 75 Percent Meal Consumed - Dinner: 100 Subjective Subjective Patient was seen & assessed and interval progress reviewed with nursing and social work. more demanding later evening, seemed to be triggered by television coverage of football and wanting [employer] radio thinking that he needed to help the moritician. Calmed with pen and paper to take notes and prn Haldol. Sleep remains disrupted with Ambien. Behavior plan is being phased in. he was gamey with plastic vega this am, had extra, now on safe tray and no hot beverages until reviewed by treatment team. Physical Exam Psychiatric Orientation: alert Apperance: appropriately groomed Eye Contact: + poor eye contact Motor Behavior: steady gait and station (minimal shuffling) Speech: + loud speech Affect: + irritable affect Mood: + irritable mood Thought Process: + concrete thought process Thought Content: + paranoid Suicidal Thoughts: denies suicidal thoughts Homicidal Thoughts: denies homicidal thoughts Hallucinations: no auditory hallucinations and no visual hallucinations Cognition: language grossly intact; + attention not intact Insight: + poor insight Judgement: + poor judgement Vital Signs (Past 24 Hours) Last Vital Signs Temp 36.6 C 02/27/22 06:34 Pulse 75 02/27/22 06:35 Resp 18 02/27/22 06:34 BP 92/62 L 02/27/22 06:35 Pulse Ox 100 02/20/22 07:05 O2 Del Method 02/20/22 07:05 Results & Data ([facility]) Laboratory Results note lytes are availabe and BUN/Cr and Na steady, Xk=[id number]. Laboratory Results - last 24 hr 02/27/22 07:57 Sodium Pending Potassium Pending Chloride Pending Carbon Dioxide Pending Anion Gap Pending BUN Pending Creatinine Pending Est Cr Clr Drug Dosing Pending Est GFR ( Amer) Pending Est GFR (Non-Af Amer) Pending BUN/Creatinine Ratio Pending Glucose Pending Calcium Pending Current Inpatient Medications Current Inpatient Medications: Current Inpatient Medications Acetaminophen (Acetaminophen 325 Mg Tab) 650 mg PO Q6H PRN PRN Reason: pain or headache Stop: 03/25/22 11:55 Last Admin: 02/27/22 03:53 Dose: 650 mg Al Hydrox/Mg Hydrox/Simethicone (Aluminum/Magnesium Susp 30 Ml Udc) 30 ml PO Q4H PRN PRN Reason: GI Upset Stop: 03/19/22 13:22 Allopurinol (Allopurinol 100 Mg Tab) 100 mg PO DAILY YOGI Stop: 03/20/22 08:59 Last Admin: 02/27/22 08:19 Dose: 100 mg Amlodipine Besylate (Amlodipine Besylate 5 Mg Tab) 2.5 mg PO QAM [facility] Stop: 03/20/22 08:59 Last Admin: 02/27/22 08:20 Dose: 2.5 mg Atorvastatin Calcium (Atorvastatin 40 Mg Tab) 40 mg PO [facility] Stop: 03/19/22 21:59 Last Admin: 02/26/22 20:37 Dose: 40 mg Benztropine Mesylate (Benztropine Mesylate 1 Mg/Ml 2 Ml Amp) 1 mg IM Q6 PRN PRN Reason: Muscle Spasm Stop: 03/28/22 13:19 Bismuth Subsalicylate (Bismuth Subsalicylate Liqd 236 Ml) 15 ml PO PRN PRN PRN Reason: Loose Stool Stop: 03/19/22 13:22 Chlorpromazine HCl (Chlorpromazine Hcl 100 Mg Tab) 100 mg PO [id number] [facility] Stop: 03/28/22 06:59 Last Admin: 02/27/22 05:56 Dose: 100 mg Chlorpromazine HCl (Chlorpromazine Hcl 100 Mg Tab) 300 mg PO [facility] Stop: 03/28/22 21:59 Last Admin: 02/26/22 20:37 Dose: 300 mg Clonazepam (Clonazepam 1 Mg Tab) 1 mg PO BIDM [facility] Stop: 03/28/22 17:44 Last Admin: 02/27/22 08:20 Dose: 1 mg [facility]urosemide ([facility]semide 20 Mg Tab) [facility] Stop: 03/20/22 08:59 Last Admin: 02/27/22 08:20 Dose: 20 mg Haloperidol (Haloperidol 5 Mg Tab) 5 mg PO Q4 PRN PRN Reason: Anxiety/Agitation Stop: 03/28/22 13:23 Last Admin: 02/26/22 21:26 Dose: 5 mg Haloperidol Lactate (Haloperidol Lactate 5 Mg/Ml 1 Ml Vial) 10 mg IM Q6 PRN PRN Reason: Agitation Stop: 03/28/22 13:19 [place]ie Carbonate (Jessie Carbonate Slow Rel 300 Mg Tab) 300 mg PO QD@08 [facility] Stop: 03/23/22 07:59 Last Admin: 02/26/22 07:27 Dose: 300 mg Jessie Carbonate (Jessie Carbonate Slow Rel 300 Mg Tab) 600 mg PO HS [facility]OG[facility] Stop: 03/22/22 21:59 Last Admin: 02/26/22 20:39 Dose: 600 mg Lorazepam (Lorazepam 2 Mg/1 Ml Vial) 2 mg IM Q6 PRN PRN Reason: Agitation Stop: 03/21/22 11:24 Magnesium Hydroxide (Magnesium Hydroxide Susp 30 Ml Udc) 30 ml PO DAILY PRN PRN Reason: Constipation Stop: 03/19/22 13:22 Metformin HCl (Metformin Hcl 500 Mg Tab) 500 mg PO QDB [facility] Stop: 03/20/22 08:59 Last Admin: 02/27/22 08:20 Dose: 500 mg Metoprolol Tartrate (Metoprolol Tartrate 25 Mg Tab) 12.5 mg PO BID [facility] Stop: 03/19/22 20:59 Last Admin: 02/27/22 08:21 Dose: 12.5 mg Sodium Chloride (Sodium Chloride 0.65% Na Soln 45 Ml ([place])) 1 - 2 sprays NA PRN PRN PRN Reason: Nasal Dryness/Congestion Stop: 03/19/22 13:22 Sodium Chloride (Sodium Chloride 1 Gm Tablet) 2 gm PO BID YOGI Stop: 03/19/22 20:59 Last Admin: 02/27/22 08:21 Dose: 2 gm Thiamine HCl (Thiamine Hcl 100 Mg Tab) 100 mg PO BID [facility] Stop: 03/19/22 20:59 Last Admin: 02/27/22 08:21 Dose: 100 mg Zolpidem Tartrate (Zolpidem Tartrate 10 Mg Tab) 10 mg PO HS PRN PRN Reason: Sleep Stop: 03/27/22 19:14 Last Admin: 02/27/22 01:20 Dose: 10 mg Mental Health & Subst Abuse Tx Psychiatrist Name of Psychiatrist: Olivier Albarran PA-C Time of Appointment with Psychiatrist: 2:10 PM Therapist Name of Therapist: no Parakeet Raiser Name of Parakeet Raiser: no Post Discharge Appointments Primary Care Physician Name Of Family Doctor/PCP: [facility] Audrey
[2022-02-27 08:57] LABS: BUN Creatinine Ratio 25.6 (10-20); Calcium 9.1 mg/dl (8.5-10.1); Creatinine Clr Calc Pharmacy 91.9 ml/min; Est GFR (African American) 104.7 ml/min; Est GFR (Non-African American) 90.4 ml/min
[2022-02-27] MEDS: LITHIUM CARBONATE SLOW REL 300 MG TAB PO SCH ×2 (09:35→21:04)
[2022-02-27] MEDS: haloperidoL 5 MG TAB PO PRN (16:51)
[2022-02-27] MEDS: clonazePAM 0.5 MG TAB PO SCH (18:04)
[2022-02-27] MEDS: ATORVASTATIN 40 MG TAB PO SCH (21:03)
[2022-02-28] MEDS: ACETAMINOPHEN 325 MG TAB PO PRN ×2 (06:22→19:52)
[2022-02-28] MEDS: LITHIUM CARBONATE SLOW REL 300 MG TAB PO SCH ×2 (08:12→20:23)
[2022-02-28] MEDS: amLODIPine BESYLATE 5 MG TAB PO SCH (08:13)
[2022-02-28] MEDS: FUROSEMIDE 20 MG TAB PO SCH (08:13)
[2022-02-28] MEDS: allopurinoL 100 MG TAB PO SCH (08:13)
[2022-02-28] MEDS: metFORMIN HCL 500 MG TAB PO SCH (08:14)
[2022-02-28] MEDS: METOPROLOL TARTRATE 25 MG TAB PO SCH ×2 (08:14→20:22)
[2022-02-28] MEDS: SODIUM CHLORIDE 1 GM TABLET PO SCH ×2 (08:14→20:23)
[2022-02-28] MEDS: THIAMINE HCL 100 MG TAB PO SCH ×2 (08:15→20:21)
[2022-02-28] MEDS: clonazePAM 0.5 MG TAB PO SCH (08:16)
--- NOTE | 2022-02-28 12:02 | Psychiatric Progress Note ---
Date of Service February 28, 2022 Impression / Recommendations Impression 66 yo male with hx of bipolar disorder, resolving encephalopathy and hyponatremia following [facility] admission and trial of Keppra, acute worsening of britta on the medical floor with need to restart mood stabilizing medication. Diagnostically consistent with acute britta given lack of sleep, mood lability with periods of hypersexuality, delusions, psychomotor agitation and hyperverbal speech. The patient is deemed unstable and requires psychiatric hospitalization for diagnostic clarification, safety and stabilization, medication management and development of further coping skills. 303 commitment since 02/20/2022. MNPR as transitioning out of [facility], hx aggression on unit 02/28/22: significant improvement in past 48 hrs. plan: d/c elopement, d/c safe tray, d/c Klonopin. lytes in am. Monitor D on lithium (1) Bipolar disorder with severe britta: (2) Electrolyte abnormality: (3) Hypertension: Inventory Assets Strengths: supportive , taking PO meds Needs: ongoing medical management, coordination of care with outpatient providers Suicide Risk Level Suicide Risk Level: Moderate (q15 min suicide checks) (acute britta with disorganization but no statements of depression nor SI but prior to presentation to [facility] reported some SI in recent months. ) Risk Factors Assessment Male: Yes : Yes Do You Have Access To A Gun?: Yes Health Problems: Yes Mental Health Diagnoses: Yes Previous Psychiatric Hospitalization: Yes Protective Factors Assessment : Yes Supportive Family: Yes Interval History Identifying Information KEVON BRO is a 66-year-old M who currently lives in [place], has a history of bipolar disorder, and was admitted on 02/17/22 13:24 on a 302 involuntary commitment for britta with psychosis. Chief Complaint "[]". Review of Systems Sleep Information Total Hours of Sleep: 4.25 Sleep Comments: Observed awake and up to bathroom, but did not come into day area Meal Information Percent Meal Consumed - Breakfast: 100 Percent Meal Consumed - Lunch: 100 Percent Meal Consumed - Dinner: 100 Telehealth Telehealth Options: Telephone only (seen via telehealth due to COVID provider emergency (isolation awaiting results)) For the duration of the visit, provider was performing the assessment from: A different facility than the patient After establishing a telemedicine visit, patient was: Patient/authorized rep acknowledged consent and understanding and Gave permission to continue telehealth session Total Time Spent (minutes): 7 Subjective Subjective Patient was seen & assessed and interval progress reviewed with treatment team. Has been less irritable and behaviorally appropriate. Asked for a Haldol prn. Is able to attend community meeting. Slept more but up with diarrhea. Rates his mood as an 8 and reality based participant in groups. Actually thanking staff for their interventions. Physical Exam Psychiatric Orientation: alert, oriented to person and oriented to place Speech: + abnormal rate/rhythm/volume of speech (hyperverbal) Mood: no depressed mood Thought Process: + concrete thought process Thought Content: reality based without delusions Suicidal Thoughts: denies suicidal thoughts Homicidal Thoughts: denies homicidal thoughts Cognition: language grossly intact Vital Signs (Past 24 Hours) Last Vital Signs Temp 36.7 C 02/28/22 06:40 Pulse 81 02/28/22 06:40 Resp 18 02/28/22 06:40 BP 125/84 02/28/22 06:40 Pulse Ox 100 02/20/22 07:05 O2 Del Method 02/20/22 07:05 Results & Data ([facility]) Current Inpatient Medications Current Inpatient Medications: Current Inpatient Medications Acetaminophen (Acetaminophen 325 Mg Tab) 650 mg PO Q6H PRN PRN Reason: pain or headache Stop: 03/25/22 11:55 Last Admin: 02/28/22 06:22 Dose: 650 mg Al Hydrox/Mg Hydrox/Simethicone (Aluminum/Magnesium Susp 30 Ml Udc) 30 ml PO Q4H PRN PRN Reason: GI Upset Stop: 03/19/22 13:22 Allopurinol (Allopurinol 100 Mg Tab) 100 mg PO DAILY YOGI Stop: 03/20/22 08:59 Last Admin: 02/28/22 08:13 Dose: 100 mg Amlodipine Besylate (Amlodipine Besylate 5 Mg Tab) 2.5 mg PO QAM [facility] Stop: 03/20/22 08:59 Last Admin: 02/28/22 08:13 Dose: 2.5 mg Atorvastatin Calcium (Atorvastatin 40 Mg Tab) 40 mg PO HS YOGI Stop: 03/19/22 21:59 Last Admin: 02/27/22 21:03 Dose: 40 mg Benztropine Mesylate (Benztropine Mesylate 1 Mg/Ml 2 Ml Amp) 1 mg IM Q6 PRN PRN Reason: Muscle Spasm Stop: 03/28/22 13:19 Bismuth Subsalicylate (Bismuth Subsalicylate Liqd 236 Ml) 15 ml PO PRN PRN PRN Reason: Loose Stool Stop: 03/19/22 13:22 Last Admin: 02/28/22 11:17 Dose: 15 ml Chlorpromazine HCl (Chlorpromazine Hcl 100 Mg Tab) 100 mg PO [id number] [facility] Stop: 03/28/22 06:59 Last Admin: 02/28/22 06:19 Dose: 100 mg Chlorpromazine HCl (Chlorpromazine Hcl 100 Mg Tab) 300 mg PO HS [facility] Stop: 03/28/22 21:59 Last Admin: 02/27/22 21:03 Dose: 300 mg Furosemide (Furosemide 20 Mg Tab) 20 mg PO QAM [facility] Stop: 03/20/22 08:59 Last Admin: 02/28/22 08:13 Dose: 20 mg Haloperidol (Haloperidol 5 Mg Tab) 5 mg PO Q4 PRN PRN Reason: Anxiety/Agitation Stop: 03/28/22 13:23 Last Admin: 02/27/22 16:51 Dose: 5 mg Haloperidol Lactate (Haloperidol Lactate 5 Mg/Ml 1 Ml Vial) 10 mg IM Q6 PRN PRN Reason: Agitation Stop: 03/28/22 13:19 [place] Carbonate ([place] Carbonate Slow Rel 300 Mg Tab) 300 mg PO QD@08 [facility] Stop: 03/23/22 07:59 Last Admin: 02/28/22 08:12 Dose: 300 mg [place] Carbonate ([place] Carbonate Slow Rel 300 Mg Tab) 600 mg PO HS [facility] Stop: 03/22/22 21:59 Last Admin: 02/27/22 21:04 Dose: 600 mg Magnesium Hydroxide (Magnesium Hydroxide Susp 30 Ml Udc) 30 ml PO DAILY PRN PRN Reason: Constipation Stop: 03/19/22 13:22 Metformin HCl (Metformin Hcl 500 Mg Tab) 500 mg PO QDB [facility] Stop: 03/20/22 08:59 Last Admin: 02/28/22 08:14 Dose: 500 mg Metoprolol Tartrate (Metoprolol Tartrate 25 Mg Tab) 12.5 mg PO BID [facility] Stop: 03/19/22 20:59 Last Admin: 02/28/22 08:14 Dose: 12.5 mg Sodium Chloride (Sodium Chloride 0.65% Na Soln 45 Ml ([place])) 1 - 2 sprays NA PRN PRN PRN Reason: Nasal Dryness/Congestion Stop: 03/19/22 13:22 Sodium Chloride (Sodium Chloride 1 Gm Tablet) 2 gm PO BID YOGI Stop: 03/19/22 20:59 Last Admin: 02/28/22 08:14 Dose: 2 gm Thiamine HCl (Thiamine Hcl 100 Mg Tab) 100 mg PO BID YOGI Stop: 03/19/22 20:59 Last Admin: 02/28/22 08:15 Dose: 100 mg Zolpidem Tartrate (Zolpidem Tartrate 10 Mg Tab) 10 mg PO HS PRN PRN Reason: Sleep Stop: 03/27/22 19:14 Last Admin: 02/27/22 01:20 Dose: 10 mg Mental Health & Subst Abuse Tx Psychiatrist Name of Psychiatrist: Olivier Albarran PA-C Psychiatrist's Time of Appointment with Psychiatrist: 2:10 PM Psychiatric Appointment Comment: [facility] [address], [place] [address] Therapist Name of Therapist: no Paper Mill Manager Name of Paper Mill Manager: no Post Discharge Appointments Primary Care Physician Name Of Family Doctor/PCP: [facility]; seeing Cathy Interiano PA-C Primary Care Time of Appointment with PCP: 1 PM Provider Appointment Comment: [address] [place] [address], CLAUDIA Ventura
[2022-02-28] MEDS: ATORVASTATIN 40 MG TAB PO SCH (20:21)
[2022-02-28] MEDS: ZOLPIDEM TARTRATE 10 MG TAB PO PRN (23:18)
[2022-03-01] MEDS: ACETAMINOPHEN 325 MG TAB PO PRN (06:07)
--- NOTE | 2022-03-01 07:57 | Psychiatric Progress Note ---
Date of Service March 01, 2022 Impression / Recommendations Impression 66 yo male with hx of bipolar disorder, resolving encephalopathy and hyponatremia following [facility] admission and trial of Keppra, acute worsening of britta on the medical floor with need to restart mood stabilizing medication. Diagnostically consistent with acute britta given lack of sleep, mood lability with periods of hypersexuality, delusions, psychomotor agitation and hyperverbal speech. The patient is deemed unstable and requires psychiatric hospitalization for diagnostic clarification, safety and stabilization, medication management and development of further coping skills. 303 commitment since 02/20/2022. [facility] as transitioning out of [facility], hx aggression on unit 02/28/22: ongoing improvement (1) Bipolar disorder with severe britta: (2) Electrolyte abnormality: (3) Hypertension: Plan 03/01/22: finalizing safety plan and aftercare. 02/27/22: continue benzo taper, behaviorally no worse. sodium stable with increase of antipsychotics, behavioral plan 02/26/22: Thorazine now TID, will increase hs dose. As just received Haldol PO prn, will shift Klonopin to 1 mg BID meals so no longer TID and coadmin with other sedating agents, cannot exclude that benzos are disinhibiting. Will focus on Thorazine titration and continue trial of Ambien in place of Restoril which was ineffective inpatient and outpatient given ongoing britta. Want to avoid TCAs given britta and hx of QTc issues. Behavior plan. 02/25/22: Continue with current medications and tx plan. 02/24/22: Discontinue clonidine, no benefit and possibly contributed to worsening irritability/agitation. Increase Thorazine to 150mg BID po. 02/23/22: Start clonidine 0.1mg qhs. Recheck BMP in 4 days. Recheck LFTs with Li level on 02/25/2022. Has been using acetaminophen frequently as prn so dose frequency reduced until LFTs are rechecked to ensure stability. 02/22/22: Recheck Na+ tomorrow. 02/21/22: Continue with current medications and tx plan. 02/20/22: Increase Heavener to 300mg qAM and 600mg qhs and then will check level on 02/25/2022. Schedule temazepam with additional prn dose based on previous outpt dose of 30mg qhs. 02/19/22: Discontinue seroquel, depakote, olanzapine, haldol given limited benefit. Start thorazine 50mg BID with prn doses available and Heavener 300mg BID and Klonopin 1mg TID and temazepam 15mg qhs prn. 02/18/22: Continue with seroquel 150mg qhs, start Depakote ER 500mg BID po. Recheck LFTs in 3-5 days. 02/17/22: The patient was admitted to the [facility] ([facility] unit) on q15 min checks (behavioral with suicide precautions) for safety. The patient will participate in group, recreational, and milieu therapies and will be offered additional individual and family sessions as clinically appropriate. Retitrating Seroquel, will resume Depakote. Hospitalist consult for ongoing co- management of sodium in the setting of restarting psych meds. 1500 ml fluid restriction. Haldol IM prn agitation, minimize exposure to Cogentin. Inventory Assets Strengths: supportive , taking PO meds Needs: ongoing medical management, coordination of care with outpatient providers Suicide Risk Level Suicide Risk Level: Moderate (q15 min suicide checks) Risk Factors Assessment Male: Yes : Yes Do You Have Access To A Gun?: Yes Health Problems: Yes Mental Health Diagnoses: Yes Previous Psychiatric Hospitalization: Yes Protective Factors Assessment : Yes Supportive Family: Yes Interval History Identifying Information KEVON BRO is a 66-year-old M who currently lives in [place], has a history of bipolar disorder, and was admitted on 02/17/22 13:24 on a 302 involuntary commitment for britta with psychosis. Chief Complaint "I'm feeling good, you are kicking me out of here." Review of Systems Sleep Information Total Hours of Sleep: 5.5 Sleep Comments: Received Ambien for insomnia Meal Information Percent Meal Consumed - Breakfast: 100 Percent Meal Consumed - Lunch: 90 Percent Meal Consumed - Dinner: 100 Subjective Subjective Patient was seen & assessed and interval progress reviewed with nursing and social work. D resolved. slept better overnight. has some baseline tremor. hopes to flower buncher or picker meds today. Attending groups without incident.Accepting of redirection. Physical Exam Psychiatric Orientation: alert and oriented x 3 Apperance: appropriately dressed and appropriately groomed Eye Contact: good eye contact Motor Behavior: + tremor Speech: normal rate/rhythm/volume of speech Affect: euthymic affect Mood: no depressed mood Thought Process: + circumstantial thought process Thought Content: reality based without delusions Suicidal Thoughts: denies suicidal thoughts Homicidal Thoughts: denies homicidal thoughts Hallucinations: no auditory hallucinations and no visual hallucinations Cognition: attention grossly intact and language grossly intact Estimated Intelligence: consistent with education level Insight: + limited insight Judgement: + limited judgement Vital Signs (Past 24 Hours) Last Vital Signs Temp 36.7 C 03/01/22 06:00 Pulse 81 03/01/22 06:00 Resp 22 03/01/22 06:00 BP 112/63 03/01/22 06:48 Pulse Ox 96 03/01/22 06:00 O2 Del Method 03/01/22 06:00 Results & Data ([facility]) Laboratory Results 03/01/22 Range/Units 09:02 Sodium 136 (136-145) mmol/L Potassium 4.2 (3.5-5.1) mmol/L Chloride 105 (98-107) mmol/L Carbon Dioxide 26 (21-32) mmol/L Anion Gap 5 (3-11) Current Inpatient Medications Current Inpatient Medications: Current Inpatient Medications Acetaminophen (Acetaminophen 325 Mg Tab) 650 mg PO Q6H PRN PRN Reason: pain or headache Stop: 03/25/22 11:55 Last Admin: 03/01/22 06:07 Dose: 650 mg Al Hydrox/Mg Hydrox/Simethicone (Aluminum/Magnesium Susp 30 Ml Udc) 30 ml PO Q4H PRN PRN Reason: GI Upset Stop: 03/19/22 13:22 Last Admin: 02/28/22 20:02 Dose: 30 ml Allopurinol (Allopurinol 100 Mg Tab) 100 mg PO DAILY YOGI Stop: 03/20/22 08:59 Last Admin: 02/28/22 08:13 Dose: 100 mg Amlodipine Besylate (Amlodipine Besylate 5 Mg Tab) 2.5 mg PO QAM YOGI Stop: 03/20/22 08:59 Last Admin: 02/28/22 08:13 Dose: 2.5 mg Atorvastatin Calcium (Atorvastatin 40 Mg Tab) 40 mg PO HS YOGI Stop: 03/19/22 21:59 Last Admin: 02/28/22 20:21 Dose: 40 mg Benztropine Mesylate (Benztropine Mesylate 1 Mg/Ml 2 Ml Amp) 1 mg IM Q6 PRN PRN Reason: Muscle Spasm Stop: 03/28/22 13:19 Bismuth Subsalicylate (Bismuth Subsalicylate Liqd 236 Ml) 15 ml PO PRN PRN PRN Reason: Loose Stool Stop: 03/19/22 13:22 Last Admin: 02/28/22 11:17 Dose: 15 ml Chlorpromazine HCl (Chlorpromazine Hcl 100 Mg Tab) 100 mg PO [id number] [facility] Stop: 03/28/22 06:59 Last Admin: 03/01/22 06:07 Dose: 100 mg Chlorpromazine HCl (Chlorpromazine Hcl 100 Mg Tab) 300 mg PO [facility] Stop: 03/28/22 21:59 Last Admin: 02/28/22 20:22 Dose: 300 mg Furosemide (Furosemide 20 Mg Tab) 20 mg PO QAM [facility] Stop: 03/20/22 08:59 Last Admin: 02/28/22 08:13 Dose: 20 mg Haloperidol (Haloperidol 5 Mg Tab) 5 mg PO Q4 PRN PRN Reason: Anxiety/Agitation Stop: 03/28/22 13:23 Last Admin: 02/27/22 16:51 Dose: 5 mg Haloperidol Lactate (Haloperidol Lactate 5 Mg/Ml 1 Ml Vial) 10 mg IM Q6 PRN PRN Reason: Agitation Stop: 03/28/22 13:19 Heavener Carbonate (Heavener Carbonate Slow Rel 300 Mg Tab) 300 mg PO QD@08 [facility] Stop: 03/23/22 07:59 Last Admin: 02/28/22 08:12 Dose: 300 mg Heavener Carbonate (Heavener Carbonate Slow Rel 300 Mg Tab) 600 mg PO [facility] Stop: 03/22/22 21:59 Last Admin: 02/28/22 20:23 Dose: 600 mg Magnesium Hydroxide (Magnesium Hydroxide Susp 30 Ml Udc) 30 ml PO DAILY PRN PRN Reason: Constipation Stop: 03/19/22 13:22 Metformin HCl (Metformin Hcl 500 Mg Tab) 500 mg PO QDB [facility] Stop: 03/20/22 08:59 Last Admin: 02/28/22 08:14 Dose: 500 mg Metoprolol Tartrate (Metoprolol Tartrate 25 Mg Tab) 12.5 mg PO BID [facility] Stop: 03/19/22 20:59 Last Admin: 02/28/22 20:22 Dose: 12.5 mg Sodium Chloride (Sodium Chloride 0.65% Na Soln 45 Ml ([place])) 1 - 2 sprays NA PRN PRN PRN Reason: Nasal Dryness/Congestion Stop: 03/19/22 13:22 Sodium Chloride (Sodium Chloride 1 Gm Tablet) 2 gm PO BID YOGI Stop: 03/19/22 20:59 Last Admin: 02/28/22 20:23 Dose: 2 gm Thiamine HCl (Thiamine Hcl 100 Mg Tab) 100 mg PO BID YOGI Stop: 03/19/22 20:59 Last Admin: 02/28/22 20:21 Dose: 100 mg Zolpidem Tartrate (Zolpidem Tartrate 10 Mg Tab) 10 mg PO HS PRN PRN Reason: Sleep Stop: 03/27/22 19:14 Last Admin: 02/28/22 23:18 Dose: 10 mg Mental Health & Subst Abuse Tx Psychiatrist Name of Psychiatrist: Olivier Albarran PA-C Psychiatrist's Time of Appointment with Psychiatrist: 2:10 PM Psychiatric Appointment Comment: [facility] [address], [place] [address] Therapist Name of Therapist: no Medical Donation Professional Name of Medical Donation Professional: no Post Discharge Appointments Primary Care Physician Name Of Family Doctor/PCP: [facility]; seeing Cathy Interiano PA-C Primary Care Time of Appointment with PCP: 1 PM Provider Appointment Comment: [id number] [place] [address], CLAUDIA Ventura
[2022-03-01] MEDS: allopurinoL 100 MG TAB PO SCH (08:44)
[2022-03-01] MEDS: LITHIUM CARBONATE SLOW REL 300 MG TAB PO SCH ×2 (08:44→20:31)
[2022-03-01] MEDS: METOPROLOL TARTRATE 25 MG TAB PO SCH ×2 (08:45→20:29)
[2022-03-01] MEDS: FUROSEMIDE 20 MG TAB PO SCH (08:45)
[2022-03-01] MEDS: metFORMIN HCL 500 MG TAB PO SCH (08:45)
[2022-03-01] MEDS: SODIUM CHLORIDE 1 GM TABLET PO SCH ×2 (08:45→20:30)
[2022-03-01] MEDS: THIAMINE HCL 100 MG TAB PO SCH ×2 (08:45→20:29)
[2022-03-01] MEDS: amLODIPine BESYLATE 5 MG TAB PO SCH (08:46)
[2022-03-01 09:57] LABS: Potassium 4.2 mmol/L (3.5-5.1)
--- NOTE | 2022-03-01 18:57 | Communication Note ---
Date of Service: March 01, 2022 case reviewed with [facility] hospitalist (Mitzi de luna) as patient's QTc trended up in past week but still less than 500. Targetting K 4 and Mg around 2 was recommended so Mg added to am labs and reviewed as 1.9. Given that essentially target and patient had D overnight yesterday will defer to follow up. Rec. f/u EKG in approximately 1 week to monitor QTc given that benefits of psychiatric medications are currently outweighing risks.
[2022-03-01] MEDS: ATORVASTATIN 40 MG TAB PO SCH (20:30)
[2022-03-01] MEDS: ZOLPIDEM TARTRATE 10 MG TAB PO PRN (22:52)
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
--- NOTE | 2022-03-02 05:49 | Electrocardiogram Report ---
Test Reason : Blood Pressure : / mmHG Vent. Rate : 086 BPM Atrial Rate : 086 BPM P-R Int : 164 ms QRS Dur : 098 ms QT Int : 410 ms P-R-T Axes : 055 -35 055 degrees QTc Int : 490 ms Normal sinus rhythm Left axis deviation Minimal voltage criteria for LVH, may be normal variant Prolonged QT Abnormal ECG When compared with ECG of 19-FEB-2022 10:53, QT has lengthened Confirmed by Olvin Nieves ([id number]) on 03/02/2022 5:49:23 AM Referred By: Roselia Mitchell Confirmed By:Olvin Nieves
[2022-03-02] MEDS: THIAMINE HCL 100 MG TAB PO SCH (08:51)
[2022-03-02] MEDS: LITHIUM CARBONATE SLOW REL 300 MG TAB PO SCH (08:51)
[2022-03-02] MEDS: SODIUM CHLORIDE 1 GM TABLET PO SCH (08:51)
[2022-03-02] MEDS: FUROSEMIDE 20 MG TAB PO SCH (08:51)
[2022-03-02] MEDS: allopurinoL 100 MG TAB PO SCH (08:51)
[2022-03-02] MEDS: metFORMIN HCL 500 MG TAB PO SCH (08:51)
[2022-03-02] MEDS: METOPROLOL TARTRATE 25 MG TAB PO SCH (08:52)
[2022-03-02] MEDS: amLODIPine BESYLATE 5 MG TAB PO SCH (08:53)
== END 2022-03-02 14:50 | disposition home or self-care (01) | DRG 885 ==
LOC: 3S 13:24